=== PATIENT | male | born 1955 | race Caucasian/White ===

== ENCOUNTER 2018-03-13 04:00 | Emergency (ER) | payer OTHER, MEDICARE ==
[2018-03-13 04:06] VITALS: RESP 18
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
--- NOTE | 2018-03-13 05:25 | CT ---
EXAM: CT Head Without Intravenous Contrast CLINICAL HISTORY: ITS.REASON CT Reason: Pain TECHNIQUE: Axial computed tomography images of the head/brain without intravenous contrast. CTDI is 57 mGy and DLP is 1004 mGy-cm. This CT exam was performed using one or more of the following dose reduction techniques: automated exposure control, adjustment of the mA and/or kV according to patient size, and/or use of iterative reconstruction technique. COMPARISON: No relevant prior studies available. FINDINGS: Brain: No hemorrhage, large hypodensity, or mass effect. Left middle cranial fossa arachnoid cyst Ventricles: No hydrocephalus. Mild cerebral volume loss. Bones/joints: Unremarkable. Soft tissues: Unremarkable. Sinuses: Unremarkable. Mastoid air cells: Clear. Moderate cerumen in the left external auditory canal. IMPRESSION: No acute hemorrhage, hydrocephalus, or mass effect. Left middle cranial fossa arachnoid cyst. Moderate cerumen in the left external auditory canal. EXAM: CT Cervical Spine Without Intravenous Contrast CLINICAL HISTORY: ITS.REASON CT Reason: Pain TECHNIQUE: Axial computed tomography images of the cervical spine without intravenous contrast. CTDI is 13 mGy and DLP is 679 mGy-cm. This CT exam was performed using one or more of the following dose reduction techniques: automated exposure control, adjustment of the mA and/or kV according to patient size, and/or use of iterative reconstruction technique. COMPARISON: No relevant prior studies available. FINDINGS: Vertebrae: No acute fracture. Discs/spinal canal/neural foramina: No acute findings. No spinal canal stenosis. Moderate left osseous neuroforaminal stenosis at C3-C4 secondary to severe left facet osteoarthrosis. Soft tissues: Unremarkable. IMPRESSION: No acute fracture or subluxation. Moderate left osseous neuroforaminal stenosis at C3-C4 secondary to severe left facet osteoarthrosis.
--- NOTE | 2018-03-13 05:31 | XR ---
EXAM: XR Thoracic Spine, 3 Views CLINICAL HISTORY: ITS.REASON XR Reason: Pain TECHNIQUE: Frontal, lateral and swimmer's views of the thoracic spine. COMPARISON: No relevant prior studies available. FINDINGS: Vertebrae: Normal alignment of the thoracic spine. Anterior bridging osteophyte formation seen at multiple levels. No acute fracture. Disc spaces: Disc space narrowing and anterior osteophyte formation identified. Soft tissues: Unremarkable. IMPRESSION: No acute bony abnormality. Degenerative changes.
[2018-03-13 06:25] VITALS: BP 138/70; PULSE 77; TEMP 97.9
[2018-03-13] MEDS ORDERED: CARBAMIDE PEROXIDE 6.5% DROPS 15 ML BTL LEFT EAR STA (06:42)
== END 2018-03-13 06:25 | disposition home or self-care (01) ==
LOC: EC 04:00
DX: S80.819A Abrasion, unspecified lower leg, initial encounter (principal); F17.200 Nicotine dependence, unspecified, uncomplicated; V49.40XA Driver injured in collision with unspecified motor vehicles in traffic accident, initial encounter; W22.11XA Striking against or struck by driver side automobile airbag, initial encounter; Y92.410 Unspecified street and highway as the place of occurrence of the external cause
CPT/HCPCS: 70450; 72072; 72125; 99284

== ENCOUNTER → 2018-09-02 | Outpatient (CLI) | payer OTHER ==
--- NOTE | 2018-09-03 09:35 | MM ---
Reason for exam: clinical finding. History: Family history of breast cancer in mother at age 65 and breast cancer in sister at age 66. Indicated problem(s): lump or thickening in the right breast. Physical Findings: Nurse Summary: 0.5 x 0.5cm nodule in the right breast at 12 o'clock (nurse ts). MG Diagnostic Mammo w CAD AKI Bilateral CC and MLO view(s) were taken. There are scattered fibroglandular densities. There is no discrete abnormality. These results were verbally communicated with the patient and result sheet given to the patient on 09/02/18. ASSESSMENT: Incomplete: need additional imaging evaluation, BI-RAD 0 RECOMMENDATION: Ultrasound of the right breast. (palpable)
--- NOTE | 2018-09-03 09:40 | USB ---
Reason for exam: additional evaluation requested from abnormal screening. History: Family history of breast cancer in mother at age 65 and breast cancer in sister at age 66. US Breast RT Right complete breast ultrasound includes all four quadrants, the retroareolar region and axilla. Finding demonstrates a 1.0 x 0.3 x 0.8cm oval, hyperechoic lesion at 1 o'clock BB, possible lipoma. These results were verbally communicated with the patient and result sheet given to the patient on 09/02/18. ASSESSMENT: Benign, BI-RAD 2 RECOMMENDATION: Clinical management of the right breast. Manage patient on a clinical basis.
== END | disposition home or self-care (01) ==
LOC: RADMAMWWP 13:43
DX: N63.12 Unspecified lump in the right breast, upper inner quadrant (principal)
CPT/HCPCS: 77066

== ENCOUNTER → 2018-11-09 | Outpatient (CLI) | payer OTHER ==
--- NOTE | 2018-11-09 16:35 | US ---
EXAMINATION TYPE: US carotid duplex BILAT DATE OF EXAM: 11/09/2018 COMPARISON: NONE CLINICAL HISTORY: I10 HTN. EXAM MEASUREMENTS: RIGHT: Peak Systolic Velocity (PSV) cm/sec ----- Right CCA: 81.1 ----- Right ICA: 74.1 ----- Right ECA: 67.5 ICA/CCA ratio: 0.9 RIGHT: End Diastole cm/sec ----- Right CCA: 29.3 ----- Right ICA: 36.7 ----- Right ECA: 14.6 LEFT: Peak Systolic Velocity (PSV) cm/sec ----- Left CCA: 81.6 ----- Left ICA: 88.6 ----- Left ECA: 83.3 ICA/CCA ratio: 1.1 LEFT: End Diastole cm/sec ----- Left CCA: 21.0 ----- Left ICA: 38.0 ----- Left ECA: 20.5 VERTEBRALS (direction of flow): Right Vertebral: Antegrade Left Vertebral: Antegrade Rhythm: Normal No significant velocity elevations, mild atherosclerotic changes. IMPRESSION: 1. Atheromatous plaquing without significant flow-limiting stenosis. Criteria for Assigning % of Stenosis / Diameter reduction (Estimation based on the indirect measurements of the internal carotid artery velocities (ICA PSV). 1. Normal (no stenosis)=ICA PSV < 125 cm/s: ratio < 2.0: ICA EDV<40 cm/s. 2. Less than 50% stenosis=ICA PSV < 125 cm/s: ratio < 2.0: ICA EDV<40 cm/s. 3. 50 to 69% stenosis=ICA PSV of 125 to 230 cm/s: ration 2.0 ? 4.0: ICA EDV 40-100 cm/s. 4. Greater than 70% stenosis to near occlusion= ICA PSV > 230 cm/s: ratio > 4.0: ICA EDV > 100 cm/s. 5. Near occlusion= ICA PSV velocities may be low or undetectable: variable ratio and ICA EDV. 6. Total occlusion=unable to detect flow.
== END ==
LOC: RADUSWWP 11:59
DX: I70.90 Unspecified atherosclerosis (principal)
CPT/HCPCS: 93880

== ENCOUNTER → 2018-11-18 | Outpatient (CLI) | payer OTHER ==
--- NOTE | 2018-11-18 12:57 | MR ---
EXAMINATION TYPE: MR lumbar spine wo con DATE OF EXAM: 11/18/2018 COMPARISON: NONE HISTORY: low back pain into left leg TECHNIQUE: T1 and T2 axial and sagittal images of the lumbar spine are submitted. FINDINGS: There is no abnormal signal seen within the visualized spinal cord or paraspinal soft tissu es. Aorta of normal caliber. Simple appearing large left renal cyst. Artifact obscures upper axial im ages of the vertebral column near the thoracolumbar junction. At T11-T12 disc sagittal disc bulging which is not included on the axial images. At T12-L1 there is no disc herniation or canal stenosis. No degenerative disc disease. At L1-2 there is no degenerative disc disease or disc herniation. No canal stenosis. Neural foramina patent. At L2-3 there is broad-based central disc herniation with moderate effacement of thecal sac. Hypertro phic change of the facets and ligamentum flavum contribute to moderate central stenosis and mild bila teral foraminal encroachment. At L3-4 there is degenerative disc disease with diffuse disc bulging and hypertrophy of the facet ricky nts and ligamentum flavum. Mild bilateral foraminal encroachment. Borderline central stenosis. Verteb ral body hemangioma L3. At L4-5 there is severe degenerative disc disease with discogenic marrow changes. 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 Findin gs also have evidence of facet arthropathy and ligamentum flavum hypertrophy with moderate central st enosis. Vertebral body hemangioma of L5. At L5-S1 there is severe degenerative disc disease with broad-based central disc bulging. There is mo derate effacement of thecal sac and mild central stenosis. Facet arthropathy is seen and there is mod erate to severe bilateral foraminal encroachment. Vertebral body hemangioma L5. IMPRESSION: 1. Multilevel degenerative disc disease with most marked findings at L4-L5 and L5-S1. 2. Broad-based disc bulging L2-L3 with hypertrophic changes contributing to foraminal encroachment an d moderate canal stenosis. 3. Disc bulging with hypertrophic changes L3-L4 with mild bilateral foraminal encroachment and border line central stenosis. 4. Severe degenerative disc disease with disc protrusion greater paracentrally the right resulting in moderate central stenosis and bilateral foraminal encroachment with severe changes on the right. 5. Disc bulging with hypertrophic changes involving L5-S1 results in moderate to severe bilateral for aminal encroachment and mild central stenosis.
== END | disposition home or self-care (01) ==
LOC: RADMRIMAIN 11:08
DX: M48.061 Spinal stenosis, lumbar region without neurogenic claudication (principal); M51.26 Other intervertebral disc displacement, lumbar region; M51.27 Other intervertebral disc displacement, lumbosacral region; M51.36 Other intervertebral disc degeneration, lumbar region; M51.37 Other intervertebral disc degeneration, lumbosacral region; Z88.0 Allergy status to penicillin
CPT/HCPCS: 72148

== ENCOUNTER 2018-11-22 00:43 | Emergency (ER) | payer OTHER, MEDICARE ==
[2018-11-22] MEDS ORDERED: SODIUM CHLORIDE 0.9% 1,000 ML IV ONE (01:37)
[2018-11-22] MEDS ORDERED: ACETAMINOPHEN TAB 500 MG TAB PO STA (01:37)
[2018-11-22 01:53] LABS: Basophils % (A) 0 %; Eosinophils # (A) 0.1 k/uL (0-0.7); Eosinophils % (A) 2 %; HCT 41.9 % (39.0-53.0); HGB 13.5 gm/dL (13.0-17.5); Lymphocytes # (A) 0.9 k/uL (1.0-4.8); Lymphocytes % (A) 12 %; MCH 27.9 pg (25.0-35.0); MCHC 32.3 g/dL (31.0-37.0); MCV 86.5 fL (80.0-100.0); Mean Platelet Volume 7.1; Monocytes # (A) 0.1 k/uL (0-1.0); Monocytes % (A) 1 %; Neutrophils % (A) 84 %; Platelet Count 219 k/uL (150-450); RBC 4.84 m/uL (4.30-5.90); RDW 14.1 % (11.5-15.5); WBC 7.1 k/uL (3.8-10.6)
[2018-11-22 02:02] LABS: INR 0.9 (<1.2); Partial Thromboplastin Time 25.6 sec (22.0-30.0); Prothrombin Time 10.1 sec (9.0-12.0)
--- NOTE | 2018-11-22 02:07 | XR ---
EXAM: XR Chest, 2 Views CLINICAL HISTORY: ITS.REASON XR Reason: difficulty breathing TECHNIQUE: Frontal and lateral views of the chest. COMPARISON: No relevant prior studies available. FINDINGS: Lungs: No consolidation or mass. Pleural space: No effusion. Heart: No cardiomegaly. Mediastinum: Unremarkable. IMPRESSION: No acute cardiopulmonary process.
[2018-11-22 02:08] LABS: ALT 17 U/L (21-72); AST 26 U/L (17-59); Albumin 3.8 g/dL (3.5-5.0); Alkaline Phosphatase 87 U/L (38-126); Anion Gap 10 mmol/L; Blood Urea Nitrogen 24 mg/dL (9-20); Calcium 9.4 mg/dL (8.4-10.2); Carbon Dioxide 21 mmol/L (22-30); Chloride 110 mmol/L (98-107); Glucose 105 mg/dL (74-99); Potassium 4.2 mmol/L (3.5-5.1); Sodium 141 mmol/L (137-145); Total Bilirubin 0.5 mg/dL (0.2-1.3); Total Protein 6.9 g/dL (6.3-8.2)
[2018-11-22 02:55] VITALS: RESP 18
--- NOTE | 2018-11-22 03:25 | ED ---
General Adult HPI - General Source: EMS Mode of arrival: EMS Limitations: no limitations <Rozina Henry - Last Filed: 11/22/18 03:39> <Lorri Hendrix - Last Filed: 11/24/18 07:57> - General Chief complaint: Shortness of Breath Stated complaint: HUDSON Time Seen by Provider: 11/22/18 01:12 - History of Present Illness Initial comments: 63-year-old male patient presents to the emergency department today for e valuation of fever, chills, shortness of breath. Patient states this evening he started to feel cold. Patient states he applied multiple layers of clothing and was under the covers and he was still shaking. Patient states during this episode he did become short of breath so he became concerned and called ambulance to bring him in. Patient states prior to this he was in his usual state of health and was feeling well. He denies any sore throat or cough but he does report some nasal congestion. Patient denies any abdominal pain, nausea, vomiting, constipation, or diarrhea. Denies any rash or wounds. Patient denies any chronic lung conditions other than asthma as a child. States he did receive a breathing treatment in EMS it did improve his symptoms. Patient denies any recent chest pain, back pain, numbness, tingling, dizziness, weakness, hematuria, dysuria, urinary urgency, urinary frequency, headache, visual changes, or any other complaints. (Rozina Henry) - Related Data Allergies Allergy/AdvReac Type Severity Reaction Status Date / Time No Known Allergies Allergy Verified 03/13/18 04:49 Review of Systems ROS Other: All systems not noted in ROS Statement are negative. <Rozina Henry - Last Filed: 11/22/18 03:39> ROS Other: All systems not noted in ROS Statement are negative. <Lorri Hendrix - Last Filed: 11/24/18 07:57> ROS Statement: Those systems with pertinent positive or pertinent negative responses have been documented in the HPI. Past Medical History Past Medical History: Diabetes Mellitus, Hypertension, Thyroid Disorder History of Any Multi-Drug Resistant Organisms: None Reported Past Surgical History: Orthopedic Surgery Additional Past Surgical History / Comment(s): weight loss surgery. Past Psychological History: No Psychological Hx Reported Smoking Status: Current every day smoker Past Alcohol Use History: None Reported Past Drug Use History: None Reported <Rozina Henry Colten - Last Filed: 11/22/18 03:39> General Exam Limitations: no limitations General appearance: alert, in no apparent distress, other (Physical well- developed, well-nourished adult male patient in no acute distress. Vital signs upon presentation are temperature 101.0F oral, pulse 89, respirations 20, blood pressure 139/78, pulse ox 96% on room air.) Eye exam: Present: normal appearance, PERRL, EOMI. Absent: scleral icterus, conjunctival injection, periorbital swelling ENT exam: Present: normal exam, normal oropharynx, mucous membranes moist Neck exam: Present: normal inspection. Absent: tenderness, meningismus, lymphadenopathy Respiratory exam: Present: normal lung sounds bilaterally. Absent: respiratory distress, wheezes, rales, rhonchi, stridor Cardiovascular Exam: Present: regular rate, normal rhythm, normal heart sounds. Absent: systolic murmur, diastolic murmur, rubs, gallop, clicks GI/Abdominal exam: Present: soft, normal bowel sounds. Absent: distended, tenderness, guarding, rebound, rigid Neurological exam: Present: alert, oriented X3, CN II-XII intact Psychiatric exam: Present: normal affect, normal mood Skin exam: Present: warm, dry, intact, normal color. Absent: rash <Rozina Henry Colten - Last Filed: 11/22/18 03:39> Course Vital Signs 11/22/18 11/22/18 11/22/18 00:46 01:17 01:42 Temperature 98.8 F 101.1 F H Pulse Rate 89 Respiratory 20 20 Rate Blood Pressure 139/78 O2 Sat by Pulse 96 Oximetry 11/22/18 11/22/18 02:54 03:56 Temperature 100.8 F H 101.0 F H Pulse Rate 100 68 Respiratory 18 18 Rate Blood Pressure 111/70 101/52 O2 Sat by Pulse 95 98 Oximetry EKG Findings - EKG Comments: EKG Findings:: EKG obtained at 0054 shows sinus tachycardia with ventricular rate of 102, ID interval 162, QRS duration 86, QT 342, QTc 445. <Rozina Henry Colten - Last Filed: 11/22/18 03:39> Medical Decision Making - Lab Data Result diagrams: 11/22/18 00:53 11/22/18 00:53 - Radiology Data Radiology results: report reviewed, image reviewed <Rozina Henry - Last Filed: 11/22/18 03:39> - Lab Data Result diagrams: 11/22/18 00:53 11/22/18 00:53 <Lorri Hendrix - Last Filed: 11/24/18 07:57> - Medical Decision Making 63-year-old male patient presents to the emergency department today for evaluation of fever and shortness of breath. Physical examination was relatively unremarkable. Lungs are clear to auscultation with good air movement. At time of evaluation patient was resting comfortably exhibiting exhibiting no respiratory distress. Labs reviewed and were unremarkable. Patient is normal white blood cell, and troponin negative. EKG showed sinus tachycardia with no ST elevation or depression. Chest x-ray showed no acute cardiopulmonary process. At time of reevaluation patient reports improve symptoms. Vital signs are stable. We did discuss virus as a cause for his symptoms. He was instructed to follow-up with his primary care physician for recheck tomorrow. Return parameters were discussed in detail. He verbalizes understanding and agrees with this plan. (Rozina Henry) I was available for consultation in the emergency department. The history and physical exam were done by the midlevel provider. I was consulted for this patient's care. I reviewed the case with the midlevel provider and based on their presentation of the patient, I agree with the assessment, medical decision making and plan of care as documented. Chart was dictated using Flinto dictation software. Attempts were made to correct any dictation errors however some typographical errors may persist. (Lorri Hendrix) - Lab Data Lab Results 11/22/18 11/22/18 11/22/18 Range/Units 00:53 00:53 00:53 WBC 7.1 (3.8-10.6) k/uL RBC 4.84 (4.30-5.90) m/uL Hgb 13.5 (13.0-17.5) gm/dL Hct 41.9 (39.0-53.0) % MCV 86.5 (80.0-100.0) fL MCH 27.9 (25.0-35.0) pg MCHC 32.3 (31.0-37.0) g/dL RDW 14.1 (11.5-15.5) % Plt Count 219 (150-450) k/uL Neutrophils % 84 % Lymphocytes % 12 % Monocytes % 1 % Eosinophils % 2 % Basophils % 0 % Neutrophils # 6.0 (1.3-7.7) k/uL Lymphocytes # 0.9 L (1.0-4.8) k/uL Monocytes # 0.1 (0-1.0) k/uL Eosinophils # 0.1 (0-0.7) k/uL Basophils # 0.0 (0-0.2) k/uL PT 10.1 (9.0-12.0) sec INR 0.9 (<1.2) APTT 25.6 (22.0-30.0) sec Sodium 141 (137-145) mmol/L Potassium 4.2 (3.5-5.1) mmol/L Chloride 110 H (98-107) mmol/L Carbon Dioxide 21 L (22-30) mmol/L Anion Gap 10 mmol/L BUN 24 H (9-20) mg/dL Creatinine 1.01 (0.66-1.25) mg/dL Est GFR (CKD-EPI)AfAm >90 (>60 ml/min/1.73 sqM) Est GFR (CKD-EPI)NonAf 80 (>60 ml/min/1.73 sqM) Glucose 105 H (74-99) mg/dL Plasma Lactic Acid Brendan (0.7-2.0) mmol/L Calcium 9.4 (8.4-10.2) mg/dL Total Bilirubin 0.5 (0.2-1.3) mg/dL AST 26 (17-59) U/L ALT 17 L (21-72) U/L Alkaline Phosphatase 87 (38-126) U/L Troponin I (0.000-0.034) ng/mL Total Protein 6.9 (6.3-8.2) g/dL Albumin 3.8 (3.5-5.0) g/dL 11/22/18 11/22/18 Range/Units 00:53 00:53 WBC (3.8-10.6) k/uL RBC (4.30-5.90) m/uL Hgb (13.0-17.5) gm/dL Hct (39.0-53.0) % MCV (80.0-100.0) fL MCH (25.0-35.0) pg MCHC (31.0-37.0) g/dL RDW (11.5-15.5) % Plt Count (150-450) k/uL Neutrophils % % Lymphocytes % % Monocytes % % Eosinophils % % Basophils % % Neutrophils # (1.3-7.7) k/uL Lymphocytes # (1.0-4.8) k/uL Monocytes # (0-1.0) k/uL Eosinophils # (0-0.7) k/uL Basophils # (0-0.2) k/uL PT (9.0-12.0) sec INR (<1.2) APTT (22.0-30.0) sec Sodium (137-145) mmol/L Potassium (3.5-5.1) mmol/L Chloride (98-107) mmol/L Carbon Dioxide (22-30) mmol/L Anion Gap mmol/L BUN (9-20) mg/dL Creatinine (0.66-1.25) mg/dL Est GFR (CKD-EPI)AfAm (>60 ml/min/1.73 sqM) Est GFR (CKD-EPI)NonAf (>60 ml/min/1.73 sqM) Glucose (74-99) mg/dL Plasma Lactic Acid Brendan 1.5 (0.7-2.0) mmol/L Calcium (8.4-10.2) mg/dL Total Bilirubin (0.2-1.3) mg/dL AST (17-59) U/L ALT (21-72) U/L Alkaline Phosphatase (38-126) U/L Troponin I <0.012 (0.000-0.034) ng/mL Total Protein (6.3-8.2) g/dL Albumin (3.5-5.0) g/dL - Radiology Data Two-view x-ray of the chest is obtained. Report was reviewed in its entirety. Impression by Dr. Tam shows no acute cardiopulmonary process. (Rozina Henry) Disposition Is patient prescribed a controlled substance at d/c from ED?: No Time of Disposition: 03:26 <Rozina Henry - Last Filed: 11/22/18 03:39> <Lorri Hendrix - Last Filed: 11/24/18 07:57> Clinical Impression: Fever, Viral syndrome Disposition: HOME SELF-CARE Condition: Good Instructions (If sedation given, give patient instructions): Fever in Adults (ED), Viral Syndrome (ED) Additional Instructions: Increase fluids. Alternate Tylenol and Motrin for fever control. Return to the emergency department immediately for any new, worsening, or concerning symptoms. Referrals: [facility],Clinic [Primary Care Provider] - 1-2 days
[2018-11-22 03:56] VITALS: BP 101/52; PULSE 68; TEMP 101
== END 2018-11-22 03:59 | disposition home or self-care (01) ==
LOC: EC 00:43
DX: B34.9 Viral infection, unspecified (principal); F17.200 Nicotine dependence, unspecified, uncomplicated
CPT/HCPCS: 36415; 71046; 80053; 83605; 84484; 85025; 85610; 85730; 87040; 93005; 96360; 99285

== ENCOUNTER → 2019-08-25 | Day surgery (SDC) | payer OTHER ==
[2019-08-24 10:40] VITALS: BMI 37.9
[~2019-08-25] MED LIST: LACTATED RINGERS 1,000 ML IV SCH; LIDOCAINE 1% 20 ML VIAL (10MG/ML) FOR IV START INTRADERMA PRN; LIDOCAINE 1% INJ 10MG/ML (20 ML MDV) ONE; PROPOFOL 10 MG/ML 20 ML VIAL IV ONE
[2019-08-25 07:58] VITALS: TEMP 97
[2019-08-25 07:59] LABS: Glucose,Whole Blood 111 mg/dL (75-99)
--- NOTE | 2019-08-25 08:45 | P.PCN ---
Date of Procedure: 08/25/19 Description of Procedure: BRIEF HISTORY: Patient is a 63-year-old male who presents for outpatient colonoscopy screening for malignant neoplasm colon. Patient reports multiple colonoscopies in the past with the last colonoscopy in 2019 which was not completed secondary to poor prep. He has had polyps removed in the past per his history. PROCEDURE PERFORMED: Colonoscopy with poor prep. PREOPERATIVE DIAGNOSIS: Screening for malignant neoplasm of the colon, last colonoscopy 1 year ago aborted secondary to poor prep, patient reports a history of colon polyps in the past. ESTIMATED BLOOD LOSS: Minimal. IV sedation per Anesthesia. PROCEDURE: After informed consent was obtained, the patient, was brought into the endoscopy unit. IV sedation was administered by Anesthesia under continuous monitoring. Digital rectal examination was normal. Initially the Olympus CF-190 flexible video colonoscope was then inserted in the rectum, gradually advanced into the cecum without any difficulty. Careful examination was performed as the scope was gradually being withdrawn. Ileocecal valve and the appendiceal orifice were visualized and appeared normal. Prep was poor with a large amount of liquid stool and solid stool throughout the entire colon prohibiting complete visu alization of the mucosa . Mucosa of the cecum, ascending colon, transverse colon, descending colon, sigmoid colon, and rectum which was able to be visualized appeared normal. Retroflexion was performed in the rectum and no lesions were seen. The patient tolerated the procedure well. IMPRESSION: Normal-appearing colon from rectum to cecum, however complete visualization impeded by poor prep. RECOMMENDATIONS: Findings of this examination were discussed with the patient and his nephew. Okay to resume diet. Okay to resume medication. Would recommend repeat colonoscopy in one year due to poor prep.
[2019-08-25 08:59] VITALS: BP 122/81; PULSE 68; RESP 18
== END ==
LOC: ORWHC2ENDO 07:15
PROVIDERS: ATTEND Internal Medicine
DX: Z12.11 Encounter for screening for malignant neoplasm of colon (principal); Z86.010 Personal history of colon polyps; E11.9 Type 2 diabetes mellitus without complications; E07.9 Disorder of thyroid, unspecified; K21.9 Gastro-esophageal reflux disease without esophagitis; Z72.0 Tobacco use; Z79.84 Long term (current) use of oral hypoglycemic drugs; Z79.890 Hormone replacement therapy; Z79.899 Other long term (current) drug therapy; Z98.84 Bariatric surgery status; Z90.49 Acquired absence of other specified parts of digestive tract; Z96.653 Presence of artificial knee joint, bilateral
CPT/HCPCS: J2001; J2704; G0105; 45378

== ENCOUNTER → 2020-06-21 | Outpatient (CLI) | payer MEDICARE, OTHER ==
--- NOTE | 2020-06-22 03:10 | MR ---
EXAMINATION TYPE: MR lumbar spine wo con DATE OF EXAM: 06/21/2020 COMPARISON: 11/18/2018 HISTORY: Low back and leg pain. HNP and lumbar radiculopathy. Multiplanar multiecho imaging of the lumbar spine was performed without contrast. Lumbar vertebra have normal alignment. There is narrowing of disc spaces at L4-5 and L5-S1. There is posterior disc bulging and herniation from L2 to S1. There is developmentally adequate spinal canal. Disc herniation at L4-5 is more to the right side with some lateral recess stenosis. The lumbar neura l foramina are fairly well-maintained. There is no compression fracture. There is no lumbar paraspina l mass. Number nerve roots show normal signal pattern. Sacrum is intact. Visualized sacroiliac joints appear intact. IMPRESSION: Multilevel spondylotic changes with multilevel posterior disc bulging and herniation. No significant spinal stenosis. Disc herniation on the right side at L4-5 no fracture. There is overall not a signif icant change compared to old exam.
== END | disposition home or self-care (01) ==
LOC: RADMRIMAIN 14:59
PROVIDERS: ATTEND Neurological Surgery
DX: M47.26 Other spondylosis with radiculopathy, lumbar region (principal); M51.16 Intervertebral disc disorders with radiculopathy, lumbar region
CPT/HCPCS: 72148

== ENCOUNTER 2021-07-10 13:17 | Inpatient (IN) | payer OTHER ==
--- NOTE | 2021-07-10 15:28 | XR ---
EXAMINATION TYPE: XR chest 2V DATE OF EXAM: 07/10/2021 COMPARISON: Chest x-ray 11/22/2018 HISTORY: Shortness of breath, fever and cough TECHNIQUE: Frontal and lateral views of the chest are obtained. FINDINGS: There is pleural effusion or pneumothorax seen. Some questionable patchy peripheral vague densities are present within the lungs. The cardiac silhouette size is within normal limits. Right h emidiaphragm remains elevated. The osseous structures are intact. IMPRESSION: Correlate for possible pneumonia, follow-up as indicated.
[2021-07-10] MEDS ORDERED: ALBUTEROL HFA INHALER INHALATION STA (16:29)
[2021-07-10] MEDS ORDERED: ACETAMINOPHEN TAB 500 MG TAB PO STA (16:29)
[2021-07-10] MEDS ORDERED: ONDANSETRON 4 MG/2 ML VIAL IVP STA (16:32)
[2021-07-10] MEDS ORDERED: SODIUM CHLORIDE 0.9% 1,000 ML IV STA (16:32)
--- NOTE | 2021-07-10 17:03 | ED ---
General Adult HPI - General Chief complaint: Fever Stated complaint: Fever, Chills Time Seen by Provider: 07/10/21 16:11 Source: patient Mode of arrival: wheelchair Limitations: no limitations - History of Present Illness Initial comments: This 65-year-old male presents to the emergency department with Covid 19. Patient states he has been experiencing shortness of breath, cough, nausea, fever since June 30, however, the symptoms have been worsening more the last couple of days. States he is able to get up and walk, but feels very winded and begins coughing if he walks short distances. He states he is also experiencing worsening fatigue and body aches. Patient denies being on any oxygen at home. Patient states he was not vaccinated for COVID-19. Patient denies any chest pain, changes in vision, lightheadedness, dizziness, changes in appetite. - Related Data Home Medications Medication Instructions Recorded Confirmed Ferrous Sulfate [Feosol] 325 mg PO DAILY 08/24/19 07/10/21 Levothyroxine Sodium [Synthroid] 100 mcg PO DAILY 08/24/19 07/10/21 Loratadine 10 mg PO DAILY 08/24/19 07/10/21 Omeprazole 20 mg PO DAILY 08/24/19 07/10/21 metFORMIN HCL [Glucophage] 500 mg PO DAILY 08/24/19 07/10/21 Lisinopril [Zestril] 10 mg PO DAILY 08/25/19 07/10/21 Azithromycin [Zithromax Z-pack (6 See Taper PO DAILY 07/10/21 07/10/21 tabs)] Cholecalciferol [Vitamin D3 (25 25 mcg PO DAILY 07/10/21 07/10/21 Mcg = 1000 Iu)] DULoxetine HCL [Cymbalta] 20 mg PO HS 07/10/21 07/10/21 Dm/Acetaminophen/Doxylamine [Vicks 2 cap PO Q6H PRN 07/10/21 07/10/21 Nyquil Liquicaps] Fluticasone Nasal [place] [Flonase 1 spr EA NOSTRIL DAILY 07/10/21 07/10/21 Nasal [place]] Gabapentin 800 mg PO TID 07/10/21 07/10/21 Multivitamins, Thera [Multivitamin 1 tab PO BID 07/10/21 07/10/21 (formulary)] Tadalafil [Cialis] 5 mg PO DAILY PRN 07/10/21 07/10/21 buPROPion [Wellbutrin] 150 mg PO DAILY 07/10/21 07/10/21 guaiFENesin [Mucinex] 600 mg PO BID 07/10/21 07/10/21 Allergies Allergy/AdvReac Type Severity Reaction Status Date / Time No Known Allergies Allergy Verified 07/10/21 16:49 Review of Systems ROS Statement: Those systems with pertinent positive or pertinent negative responses have been documented in the HPI. ROS Other: All systems not noted in ROS Statement are negative. Past Medical History Past Medical History: Diabetes Mellitus, GERD/Reflux, Hypertension, Thyroid Disorder Additional Past Medical History / Comment(s): DIVERTICULOSIS History of Any Multi-Drug Resistant Organisms: None Reported Past Surgical History: Appendectomy, Bariatric Surgery, Joint Replacement Additional Past Surgical History / Comment(s): GATRIC SLEEVE. BILAT TKA. COLONOSCOPY. EYELID SX. RHINOPLASTY Past Anesthesia/Blood Transfusion Reactions: Motion Sickness Past Psychological History: No Psychological Hx Reported Smoking Status: Former smoker Past Alcohol Use History: Rare Past Drug Use History: None Reported - Past Family History Mother Family Medical History: No Reported History Sister(s) Family Medical History: Cancer Father Family Medical History: Cancer General Exam Limitations: no limitations General appearance: alert, in no apparent distress, obese Head exam: Present: atraumatic, normocephalic Eye exam: Present: normal appearance, EOMI ENT exam: Present: mucous membranes moist Respiratory exam: Present: normal lung sounds bilaterally, respiratory distress (Respirations at 22 with oxygen at 88%. Nasal cannula placed, 3 L O2 delivered. Patient stated his shortness of breath felt better), other (Coughing while trying to take deep breaths. On 3 L nasal cannula). Absent: wheezes, rales, rhonchi, stridor Cardiovascular Exam: Present: normal rhythm, tachycardia, normal heart sounds. Absent: systolic murmur, diastolic murmur, rubs, gallop, clicks GI/Abdominal exam: Present: soft, normal bowel sounds. Absent: distended, tenderness, guarding, rebound, rigid Extremities exam: Present: full ROM Neurological exam: Present: alert, oriented X3, CN II-XII intact Psychiatric exam: Present: normal affect, normal mood Skin exam: Present: warm, dry, intact, normal color. Absent: rash Course Vital Signs 07/10/21 07/10/21 07/10/21 14:25 16:18 16:20 Temperature 100.6 F H 102.2 F H Pulse Rate 105 H 100 Respiratory 18 22 20 Rate Blood Pressure 117/72 125/84 O2 Sat by Pulse 90 L 88 L Oximetry 07/10/21 20:45 Temperature 98.6 F Pulse Rate 75 Respiratory 18 Rate Blood Pressure 106/67 O2 Sat by Pulse 94 L Oximetry EKG Findings - EKG Comments: EKG Findings:: EKG at 17:39. Normal sinus rhythm. Ventricular rate 87 bpm. MD interval 152ms. QRS duration 90ms. QT/QTc is 358/430ms Medical Decision Making - Medical Decision Making This 65-year-old male presents to emergency department with COVID-19. Patient has been experiencing shortness of breath, cough, fatigue, nausea since 06/30/2021. Placed on 3 L nasal cannula and states shortness of breath has improved but he still feels "like crap." Chest x-ray impression: Correlate for possible pneumonia, follow-up is indicated. Some questionable patchy peripheral vague densities are present within the lungs. Labs: D-dimer 1.27. BNP 134, creatinine 1.53, lactate dehydrogenase 1378, C-reactive protein 7.6, platelet 136. CTA chest no evidence of pulmonary embolism. Extensive ground glass interstitial and filtrates consistent with multifocal interstitial pneumonia. Started patient on anticoagulant. Discussed case with Dr. Barfield. Patient will be admitted to Dr. Archuleta with pulmonary consulted. - Lab Data Result diagrams: 07/10/21 17:03 07/10/21 17:03 Lab Results 07/10/21 07/10/21 07/10/21 Range/Units 14:34 17:03 17:03 WBC 6.8 (3.8-10.6) k/uL RBC 5.57 (4.30-5.90) m/uL Hgb 16.5 (13.0-17.5) gm/dL Hct 48.1 (39.0-53.0) % MCV 86.4 (80.0-100.0) fL MCH 29.5 (25.0-35.0) pg MCHC 34.2 (31.0-37.0) g/dL RDW 12.5 (11.5-15.5) % Plt Count 136 L (150-450) k/uL MPV 8.2 Neutrophils % 88 % Lymphocytes % 7 % Monocytes % 3 % Eosinophils % 0 % Basophils % 0 % Neutrophils # 6.0 (1.3-7.7) k/uL Lymphocytes # 0.5 L (1.0-4.8) k/uL Monocytes # 0.2 (0-1.0) k/uL Eosinophils # 0.0 (0-0.7) k/uL Basophils # 0.0 (0-0.2) k/uL PT 10.3 (9.0-12.0) sec INR 1.0 (<1.2) APTT 26.2 (22.0-30.0) sec D-Dimer 1.27 H (<0.60) mg/L FEU Sodium (137-145) mmol/L Potassium (3.5-5.1) mmol/L Chloride (98-107) mmol/L Carbon Dioxide (22-30) mmol/L Anion Gap mmol/L BUN (9-20) mg/dL Creatinine (0.66-1.25) mg/dL Est GFR (CKD-EPI)AfAm (>60 ml/min/1.73 sqM) Est GFR (CKD-EPI)NonAf (>60 ml/min/1.73 sqM) Glucose (74-99) mg/dL Plasma Lactic Acid Brendan (0.7-2.0) mmol/L Calcium (8.4-10.2) mg/dL Magnesium (1.6-2.3) mg/dL Total Bilirubin (0.2-1.3) mg/dL AST (17-59) U/L ALT (4-49) U/L Alkaline Phosphatase (38-126) U/L Lactate Dehydrogenase (313-618) U/L C-Reactive Protein (<1.0) mg/dL Total Protein (6.3-8.2) g/dL Albumin (3.5-5.0) g/dL Coronavirus (PCR) Detected A (Not Detectd) Influenza Type A RNA (Not Detectd) Influenza Type B (PCR) (Not Detectd) 07/10/21 07/10/21 07/10/21 Range/Units 17:03 17:03 17:12 WBC (3.8-10.6) k/uL RBC (4.30-5.90) m/uL Hgb (13.0-17.5) gm/dL Hct (39.0-53.0) % MCV (80.0-100.0) fL MCH (25.0-35.0) pg MCHC (31.0-37.0) g/dL RDW (11.5-15.5) % Plt Count (150-450) k/uL MPV Neutrophils % % Lymphocytes % % Monocytes % % Eosinophils % % Basophils % % Neutrophils # (1.3-7.7) k/uL Lymphocytes # (1.0-4.8) k/uL Monocytes # (0-1.0) k/uL Eosinophils # (0-0.7) k/uL Basophils # (0-0.2) k/uL PT (9.0-12.0) sec INR (<1.2) APTT (22.0-30.0) sec D-Dimer (<0.60) mg/L FEU Sodium 135 L (137-145) mmol/L Potassium 4.9 (3.5-5.1) mmol/L Chloride 101 (98-107) mmol/L Carbon Dioxide 22 (22-30) mmol/L Anion Gap 12 mmol/L BUN 34 H (9-20) mg/dL Creatinine 1.53 H (0.66-1.25) mg/dL Est GFR (CKD-EPI)AfAm 55 (>60 ml/min/1.73 sqM) Est GFR (CKD-EPI)NonAf 48 (>60 ml/min/1.73 sqM) Glucose 121 H (74-99) mg/dL Plasma Lactic Acid Brendan 1.3 (0.7-2.0) mmol/L Calcium 9.3 (8.4-10.2) mg/dL Magnesium 1.9 (1.6-2.3) mg/dL Total Bilirubin 0.7 (0.2-1.3) mg/dL AST 58 (17-59) U/L ALT 20 (4-49) U/L Alkaline Phosphatase 84 (38-126) U/L Lactate Dehydrogenase 1378 H (313-618) U/L C-Reactive Protein 7.6 H (<1.0) mg/dL Total Protein 7.4 (6.3-8.2) g/dL Albumin 3.9 (3.5-5.0) g/dL Coronavirus (PCR) (Not Detectd) Influenza Type A RNA Not Detected (Not Detectd) Influenza Type B (PCR) Not Detected (Not Detectd) Disposition Clinical Impression: COVID-19, Pneumonia due to COVID-19 virus, Hypoxia, Fever Disposition: ADMITTED IP TO THIS HOSP Condition: Good Is patient prescribed a controlled substance at d/c from ED?: No
[2021-07-10 17:17] LABS: Basophils % (A) 0 %; Eosinophils % (A) 0 %; HCT 48.1 % (39.0-53.0); HGB 16.5 gm/dL (13.0-17.5); Lymphocytes # (A) 0.5 k/uL (1.0-4.8); Lymphocytes % (A) 7 %; MCH 29.5 pg (25.0-35.0); MCHC 34.2 g/dL (31.0-37.0); MCV 86.4 fL (80.0-100.0); Mean Platelet Volume 8.2; Monocytes # (A) 0.2 k/uL (0-1.0); Monocytes % (A) 3 %; Neutrophils % (A) 88 %; Platelet Count 136 k/uL (150-450); RBC 5.57 m/uL (4.30-5.90); RDW 12.5 % (11.5-15.5); WBC 6.8 k/uL (3.8-10.6)
[2021-07-10 17:32] LABS: Partial Thromboplastin Time 26.2 sec (22.0-30.0); Prothrombin Time 10.3 sec (9.0-12.0)
[2021-07-10] MEDS ORDERED: DEXAMETHASONE SOD PHOSPHATE 10 MG/ML 1 ML VIAL IVP STA (17:48)
[2021-07-10 17:50] LABS: Albumin 3.9 g/dL (3.5-5.0); C Reactive Protein 7.6 mg/dL (<1.0); Calcium 9.3 mg/dL (8.4-10.2); Magnesium 1.9 mg/dL (1.6-2.3); Potassium 4.9 mmol/L (3.5-5.1); Total Bilirubin 0.7 mg/dL (0.2-1.3); Total Protein 7.4 g/dL (6.3-8.2)
[2021-07-10] MEDS ORDERED: SODIUM CHLORIDE 0.9% 500 ML 500 ML IV STA (18:32)
--- NOTE | 2021-07-10 18:56 | CT ---
EXAMINATION TYPE: CT chest angio for PE DATE OF EXAM: 07/10/2021 COMPARISON: None HISTORY: +covid, SOB CT DLP: 940.9 mGycm Automated exposure control for dose reduction was used. CONTRAST: Performed with IV Contrast, patient injected with 80cc mL of Isovue 370. Images obtained from the thoracic inlet to the diaphragm with IV contrast. There are Three-D postproc essed images. There is patchy groundglass interstitial infiltrates scattered throughout both lung gil. There is no mediastinal adenopathy. There are bilateral multiple bronchial lymph nodes up to 1.5 cm. Thoracic aorta is intact. There is no aneurysm or dissection. There is normal contrast opacification of the pu lmonary arteries. There is no evidence of filling defect. There is no pleural effusion. Thoracic spine is intact. Sternum is intact. Upper abdominal soft tissu es are intact. There is previous gastric bariatric surgery. IMPRESSION: No evidence of pulmonary embolism. Extensive groundglass interstitial infiltrates consistent with mul tifocal interstitial pneumonia.
[2021-07-10] MEDS ORDERED: NALOXONE 0.4 MG/ML 1 ML VIAL IV PRN (19:55)
[2021-07-10] MEDS ORDERED: ACETAMINOPHEN TAB 325 MG TAB PO PRN (19:55)
[2021-07-10] MEDS: ZINC SULFATE 220 MG CAP PO SCH (20:53)
[2021-07-10] MEDS: ASCORBIC ACID 500 MG TAB PO SCH (20:53)
[2021-07-10] MEDS: SODIUM CHLORIDE 0.9% 1,000 ML IV SCH (20:55)
[2021-07-10] MEDS ORDERED: MORPHINE SULFATE 4 MG/ML SYRINGE IVP STA (21:03)
[2021-07-10] MEDS: MULTIVITAMINS, THERA 1 EACH TAB PO SCH (21:11)
[2021-07-10] MEDS: CHOLECALCIFEROL 25 MCG (1000 IU) TABLET PO SCH (21:11)
[2021-07-10] MEDS: ONDANSETRON 4 MG/2 ML VIAL IVP PRN (21:11)
[2021-07-10] MEDS: ENOXAPARIN 40 MG/0.4 ML SYRINGE SQ SCH (21:12)
[2021-07-10] MEDS: DULoxetine HCL 20 MG CAPSULE.DR PO SCH (21:19)
[2021-07-10 21:22] LABS: Appearance,Urine Clear (Clear); Bilirubin,Urine Negative (Negative); Blood,Urine Negative (Negative); Color,Urine Yellow; Glucose,Urine (UA) Negative (Negative); Ketones,Urine Negative (Negative); Leukocyte Esterase,Urine Negative (Negative); Mucus,Urine Rare /hpf; Nitrite,Urine Negative (Negative); PH, Urine 5.5 (5.0-8.0); Protein,Urine 1+ (Negative); RBC,Urine <1 /hpf (0-5); Specific Gravity,Urine 1.041 (1.001-1.035); Squamous Epithelial Cell,Urine <1 /hpf (0-4); WBC,Urine 7 /hpf (0-5)
[2021-07-11] MEDS: GABAPENTIN 400 MG CAP PO SCH ×4 (00:43→19:57)
[2021-07-11] MEDS: LEVOTHYROXINE 100 MCG TAB PO SCH (05:55)
[2021-07-11 07:21] LABS: Glucose,Whole Blood 256 mg/dL (75-99)
[2021-07-11] MEDS: ZINC SULFATE 220 MG CAP PO SCH (07:53)
[2021-07-11] MEDS: lisinopriL 10 MG TAB PO SCH (07:54)
[2021-07-11] MEDS: MULTIVITAMINS, THERA 1 EACH TAB PO SCH ×2 (07:54→19:57)
[2021-07-11] MEDS: PANTOPRAZOLE 40 MG TABLET PO SCH (07:54)
[2021-07-11] MEDS: LORATADINE 10 MG TAB PO SCH (07:54)
[2021-07-11] MEDS: ASCORBIC ACID 500 MG TAB PO SCH (07:54)
[2021-07-11] MEDS: metFORMIN 500 MG TAB PO SCH (07:54)
[2021-07-11] MEDS: CHOLECALCIFEROL 25 MCG (1000 IU) TABLET PO SCH (07:54)
[2021-07-11] MEDS: SODIUM CHLORIDE 0.9% 1,000 ML IV SCH ×2 (08:32→22:52)
[2021-07-11] MEDS: buPROPion 75 MG TAB PO SCH (08:33)
[2021-07-11] MEDS ORDERED: DEXAMETHASONE SOD PHOSPHATE 10 MG/ML 1 ML VIAL IVP SCH (09:00)
[2021-07-11 11:51] LABS: African American GFR (CKD) 82.4 (60.0-200.0); Anion Gap 12.6 mmol/L (10.00-18.00); BUN/Creat Ratio 22.64 Ratio (12.00-20.00); Blood Urea Nitrogen 24.9 mg/dL (9.0-27.0); Calcium 9.1 mg/dL (8.7-10.3); Carbon Dioxide 20.4 mmol/L (20.0-27.5); Non-African American GFR(CKD) 71.1 (60.0-200.0); Potassium 4.2 mmol/L (3.5-5.5)
[2021-07-11 12:06] LABS: Glucose,Whole Blood 188 mg/dL (75-99)
[2021-07-11] MEDS: INSULIN ASPART (NovoLOG) 100 UNIT/ML VIAL SQ SCH ×3 (12:17→19:57)
--- NOTE | 2021-07-11 14:03 | HP ---
HISTORY AND PHYSICAL CHIEF COMPLAINT: Fever, chills, shortness of breath and cough. HISTORY OF PRESENT ILLNESS: This 65-year-old gentleman with a past medical history of multiple medical problems including diabetes, GERD, hypertension, hypothyroidism, being followed by Dr. Resendiz in the [facility] in the outpatient setting complaining of fever. Patient also has shortness of breath with cough and sputum since June 30. Because of worsening symptoms, the patient came to [facility] and was admitted for further evaluation and treatment. Covid 19 was positive. The patient did not receive any vaccination for Covid 19. The chest x-ray showed extensive bilateral pulmonary features suggestive of Covid 19 pneumonia. The patient had hypoxia. There is no history any headache, loss of consciousness or seizures at this time. The blood sugars are also elevated. Patient also had elevated . Procalcitonin is also elevated. PAST MEDICAL HISTORY: History of diabetes type 2, history of GERD, hypertension, hypothyroidism, diverticulosis, appendectomy, bariatric surgery. MEDICATIONS: At home prior to admission include: Zithromax, multivitamins, levothyroxine, iron sulfate, cholecalciferol, Mucinex, omeprazole, Wellbutrin, gabapentin, Cymbalta, Glucophage. Doses and other medications noted. ALLERGIES: None. FAMILY HISTORY: No history of heart disease or strokes in the family. SOCIAL HISTORY: Previous history of smoking. History of vaping. REVIEW OF SYMPTOMS: HEENT: No diminished vision. No diminished hearing. CARDIOVASCULAR system: As mention earlier. RESPIRATIONS: As mentioned earlier. GI: No nausea or vomiting. : No dysuria. NERVOUS SYSTEM: No numbness or weakness. ALLERGY/IMMUNOLOGY: No asthma or hayfever. MUSCULOSKELETAL: As mentioned earlier. HEMATOLOGY/ONCOLOGY: No history of anemia. ENDOCRINE: As mentioned earlier. CONSTITUTIONAL: As mentioned earlier. DERMATOLOGY: Negative. RHEUMATOLOGY: Negative. PSYCHIATRIC: As mentioned earlier. PHYSICAL EXAMINATION: Patient is alert and oriented times three. Pulse is 50, blood pressure is 128/70, respiration 18, temperature 97.4. Pulse ox 98% on 3 L. HEENT: Conjunctivae normal. NECK: No JVD. CARDIOVASCULAR: S1, S2 muffled. RESPIRATORY: Breath sounds diminished in the bases. A few scattered rhonchi and crackles. ABDOMEN: Soft, nontender. No mass palpable. LEGS: No edema. No swelling. NERVOUS SYSTEM: Higher functions as mentioned earlier. Moves all four extremities. No focal deficits. LYMPHATICS: No lymph nodes palpable in the neck, axillae or groin. SKIN: No ulcer, no rashes and no bleeding. JOINTS: No active deforming arthropathy. LABS: WBC 6.8, and platelets are 136. D-dimer is 1.2. Sodium 130. Other labs noted. ASSESSMENT: 1. Acute Covid 19 infection with acute Covid 19 bilateral interstitial pneumonia with acute hypoxic respiratory failure. 2. Thrombocytopenia. 3. Lymphopenia. 4. Elevated D-dimer without any evidence of pulmonary embolism. 5. Hyponatremia. 6. Increased creatinine with acute renal failure, acute tubular necrosis secondary to Covid 19 or dehydration. 7. Elevated plasma glucose. 8. Elevated ferritin. 9. Elevated C-reactive protein and elevated inflammatory markers of Covid 19. 10.Elevated Procalcitonin. 11.History of diabetes type 2. 12.Hypertension. 13.Hypothyroidism. 14.History of diverticulosis. 15.History of bariatric surgery. 16.History of degenerative joint disease. 17.History of vaping, and history of smoking. 18.Obesity with body mass of 37. 19.FULL CODE. RECOMMENDATIONS AND DISCUSSION: This 65-year-old woman who presented with multiple complex medical issues, we will monitor the patient closely, continue the current medications, symptomatic treatment. The patient started on dexamethasone and Lovenox. Otherwise, I would recommend usual medications for Covid 19. Pulmonary consultation. Infectious disease evaluation. Continue the rest of medications. Prognosis guarded because of multiple complex medical issues. Further recommendations to follow. Discussed with the patient who understands and agrees. A copy of this dictation being forwarded to Dr. Resendiz who is the primary physician. MMODL / VAISHNAVIN: [id number] / MTDDarin
--- NOTE | 2021-07-11 16:27 | P.CNPUL ---
History of Present Illness Consult date: 07/11/21 Requesting physician: Dudley Danielson Reason for consult: dyspnea, cough, hypoxemia, pneumonia, abnormal CXR/CT Chief complaint: Fever, chills, cough, shortness of breath, nausea. History of present illness: Pulmonary consult dated 07/11/2021. 65-year-old male, who presented to the emergency department, on July 10, and plenty of a number things including fever, chills, shortness of breath, cough, nausea, and general weakness, since June 30. The patient becomes very winded with any exercise or exertion, and notices that he starts to cough. The cough is mostly dry and harsh, and very painful. The patient is on vaccinated against coronavirus. His roommate, is also in the hospital currently, with coronavirus infection. The patient tested positive for coronavirus on July 10. The patient has a history of diabetes mellitus, diverticular disease, gastroesophageal reflux disease, hypertension, and hypothyroidism. The patient has also had previous bariatric surgery for obesity. The patient is a former smoker. Laboratory data includes a white count 6.8, hemoglobin 16.5, hematocrit 48.1, and a platelet count as 136,000. D-dimer was 1.27. Sodium 137, potassium 4.2, chlorides 104, CO2 20, anion gap 13, BUN 25, and creatinine 1.1. Glucose is 208. Pro-calcitonin level was 0.26. C-reactive protein 7.6. LDH 1378. Urine is negative. Chest x-ray shows diffuse patchy infiltrates, and computed tomography scan though negative for pulmonary embolism, showed significant jessica ateral groundglass opacities consistent with coronavirus pneumonia. Review of Systems REVIEW OF SYSTEMS: CONSTITUTIONAL: Weakness, fever, chills, fatigue. NEUROLOGIC: [ Negative.] HEENT: [ Negative.] CARDIAC: [Negative.] PULMONARY: Shortness of breath, and cough. GI: Poor oral intake. : [Negative.] RHEUMATOLOGIC: [ Negative.] IMMUNOLOGIC: [ Negative.] ENDOCRINE: [Negative. ] DERMATOLOGIC: [Negative.] Past Medical History Past Medical History: Diabetes Mellitus, GERD/Reflux, Hypertension, Thyroid Disorder Additional Past Medical History / Comment(s): DIVERTICULOSIS History of Any Multi-Drug Resistant Organisms: None Reported Past Surgical History: Appendectomy, Bariatric Surgery, Joint Replacement, Orthopedic Surgery Additional Past Surgical History / Comment(s): GATRIC SLEEVE. BILAT TKA. COLONOSCOPY. EYELID SX. RHINOPLASTY. Back Surgery 09/03/20 Past Anesthesia/Blood Transfusion Reactions: Motion Sickness Past Psychological History: No Psychological Hx Reported Smoking Status: Former smoker, Vaper Past Alcohol Use History: Rare Additional Past Alcohol Use History / Comment(s): QUIT SMOKING CIGARETTES 1988-. Quit vaping Jul 2021 Past Drug Use History: None Reported - Past Family History Mother Family Medical History: No Reported History Sister(s) Family Medical History: Cancer Father Family Medical History: Cancer Medications and Allergies Home Medications Medication Instructions Recorded Confirmed Type Ferrous Sulfate [Feosol] 325 mg PO DAILY 08/24/19 07/10/21 History Levothyroxine Sodium [Synthroid] 100 mcg PO DAILY 08/24/19 07/10/21 History Loratadine 10 mg PO DAILY 08/24/19 07/10/21 History Omeprazole 20 mg PO DAILY 08/24/19 07/10/21 History metFORMIN HCL [Glucophage] 500 mg PO DAILY 08/24/19 07/10/21 History Lisinopril [Zestril] 10 mg PO DAILY 08/25/19 07/10/21 History Azithromycin [Zithromax Z-pack (6 See Taper PO DAILY 07/10/21 07/10/21 History tabs)] Cholecalciferol [Vitamin D3 (25 25 mcg PO DAILY 07/10/21 07/10/21 History Mcg = 1000 Iu)] DULoxetine HCL [Cymbalta] 20 mg PO HS 07/10/21 07/10/21 History Dm/Acetaminophen/Doxylamine [Vicks 2 cap PO Q6H PRN 07/10/21 07/10/21 History Nyquil Liquicaps] Fluticasone Nasal [place] [Flonase 1 spr EA NOSTRIL DAILY 07/10/21 07/10/21 History Nasal [place]] Gabapentin 800 mg PO TID 07/10/21 07/10/21 History Multivitamins, Thera [Multivitamin 1 tab PO BID 07/10/21 07/10/21 History (formulary)] Tadalafil [Cialis] 5 mg PO DAILY PRN 07/10/21 07/10/21 History buPROPion [Wellbutrin] 150 mg PO DAILY 07/10/21 07/10/21 History guaiFENesin [Mucinex] 600 mg PO BID 07/10/21 07/10/21 History Allergies Allergy/AdvReac Type Severity Reaction Status Date / Time No Known Allergies Allergy Verified 07/10/21 16:49 Physical Exam Osteopathic Statement: *. No significant issues noted on an osteopathic structural exam other than those noted in the History and Physical/Consult. Vitals: Vital Signs Temp Pulse Pulse Resp BP BP Pulse Ox 07/11/21 15:00 98.1 F 55 L 16 119/74 93 L 07/11/21 08:00 97.7 F 55 L 17 121/78 94 L 07/11/21 07:15 18 07/11/21 06:16 97.4 F L 50 L 18 128/70 93 L 07/11/21 02:02 22 07/11/21 02:00 97.7 F 66 20 139/77 91 L 07/11/21 00:45 98.3 F 56 L 22 120/73 95 07/10/21 20:45 98.6 F 75 18 106/67 94 L 07/10/21 16:20 20 07/10/21 16:18 102.2 F H 100 22 125/84 88 L Intake and Output 07/11/21 07/11/21 07/11/21 06:59 14:59 22:59 Other: Voiding Method Urinal Urinal # Voids 0 No acute distress, oriented 3. Saturations are 93-94% on 3 L nasal cannula. HEENT examination is grossly unremarkable. Neck supple. Full range of motion. No adenopathy thyromegaly or neck vein d istention. Cardiovascular examination reveals regular rhythm rate. S1-S2 normal. No S3 or S4. No discernible murmur noted. Heart rate 55 bpm. Lungs reveal diffuse bilateral crackles. They were quite significant. No wheezes or rhonchi. Breath sounds are equal bilaterally. Abdomen soft bowel sounds are heard. No masses or tenderness. Extremities are intact. No cyanosis clubbing or edema. Skin is without rash or lesion. Neurologic examination is brief but nonfocal. Results - Laboratory Findings CBC and BMP: 07/10/21 17:03 07/11/21 07:46 PT/INR, D-dimer PT 10.3 sec (9.0-12.0) 07/10/21 17:03 INR 1.0 (<1.2) 07/10/21 17:03 D-Dimer 1.27 mg/L FEU (<0.60) H 07/10/21 17:03 Abnormal lab findings: Abnormal Labs 07/10/21 07/10/21 07/10/21 14:34 17:03 17:03 Plt Count 136 L Lymphocytes # 0.5 L D-Dimer 1.27 H Sodium BUN Creatinine BUN/Creatinine Ratio Glucose POC Glucose (mg/dL) Ferritin Lactate Dehydrogenase C-Reactive Protein Procalcitonin Ur Specific [place] Urine Protein Urine WBC Urine Mucus Coronavirus (PCR) Detected A 07/10/21 07/10/21 07/10/21 17:03 17:03 21:00 Plt Count Lymphocytes # D-Dimer Sodium 135 L BUN 34 H Creatinine 1.53 H BUN/Creatinine Ratio Glucose 121 H POC Glucose (mg/dL) Ferritin 908.0 H Lactate Dehydrogenase 1378 H C-Reactive Protein 7.6 H Procalcitonin 0.26 H Ur Specific [place] 1.041 H Urine Protein 1+ H Urine WBC 7 H Urine Mucus Rare H Coronavirus (PCR) 07/11/21 07/11/21 07/11/21 07:20 07:46 12:04 Plt Count Lymphocytes # D-Dimer Sodium BUN Creatinine BUN/Creatinine Ratio 22.64 H Glucose 208 H POC Glucose (mg/dL) 256 H 188 H Ferritin Lactate Dehydrogenase C-Reactive Protein Procalcitonin Ur Specific [place] Urine Protein Urine WBC Urine Mucus Coronavirus (PCR) - Diagnostic Findings Chest x-ray: image reviewed CT scan - chest: image reviewed Assessment and Plan Assessment: Acute hypoxemic respiratory failure secondary to coronavirus associated pneumonia. Elevated inflammatory markers, secondary to coronavirus infection. No evidence of pulmonary embolism on CT angiogram. History of hypothyroidism. History of gastroesophageal reflux disease. History of diabetes mellitus. History of hypertension. History of diverticular disease. Prior history of bariatric surgery for obesity. History of prior tobacco use. Plan: Plan dated 07/11/2021. The patient is currently on albuterol inhaler, vitamin C, vitamin D3, Decadron, Lovenox, and zinc. The patient is not sick enough to receive CARINE. The patient is beyond the window for REM. We will continue to follow and make recommendations along the way. The Decadron will be cut back to once a day. X- rays, and labs, and medications are all reviewed. Prognosis is guarded. We will continue to follow make recommendations where appropriate. Time with Patient: Greater than 30
[2021-07-11 16:48] LABS: Glucose,Whole Blood 212 mg/dL (75-99)
[2021-07-11 19:42] LABS: Glucose,Whole Blood 292 mg/dL (75-99)
[2021-07-11] MEDS: DULoxetine HCL 20 MG CAPSULE.DR PO SCH (19:57)
[2021-07-11] MEDS: ENOXAPARIN 40 MG/0.4 ML SYRINGE SQ SCH (19:57)
[2021-07-12] MEDS: LEVOTHYROXINE 100 MCG TAB PO SCH (05:38)
[2021-07-12 06:57] LABS: Glucose,Whole Blood 243 mg/dL (75-99)
[2021-07-12] MEDS: buPROPion 75 MG TAB PO SCH (07:37)
[2021-07-12] MEDS: ASCORBIC ACID 500 MG TAB PO SCH (07:37)
[2021-07-12] MEDS: PANTOPRAZOLE 40 MG TABLET PO SCH (07:37)
[2021-07-12] MEDS: INSULIN ASPART (NovoLOG) 100 UNIT/ML VIAL SQ SCH ×4 (07:37→21:34)
[2021-07-12] MEDS: CHOLECALCIFEROL 25 MCG (1000 IU) TABLET PO SCH (07:37)
[2021-07-12] MEDS: metFORMIN 500 MG TAB PO SCH (07:38)
[2021-07-12] MEDS: ZINC SULFATE 220 MG CAP PO SCH (07:38)
[2021-07-12] MEDS: FERROUS SULFATE 325 MG TAB PO SCH (07:38)
[2021-07-12] MEDS: LORATADINE 10 MG TAB PO SCH (07:38)
[2021-07-12] MEDS: MULTIVITAMINS, THERA 1 EACH TAB PO SCH ×2 (07:38→21:34)
[2021-07-12] MEDS: GABAPENTIN 400 MG CAP PO SCH ×3 (07:38→21:33)
[2021-07-12] MEDS: lisinopriL 10 MG TAB PO SCH (07:38)
[2021-07-12] MEDS: FLUTICASONE 50MCG/SPRAY NASAL 16GM EA NOSTRIL SCH (07:39)
[2021-07-12] MEDS: DEXAMETHASONE SOD PHOSPHATE 10 MG/ML 1 ML VIAL IVP SCH (07:39)
--- NOTE | 2021-07-12 09:32 | P.CONS ---
History of Present Illness - Reason for Consult Consult date: 07/11/21 covid 19 Requesting physician: Dudley Danielson - Chief Complaint shortness of breath/cough x 10 days - History of Present Illness History of present illness : Patient is a 65-year-old male presenting to the ER for evaluation of increasing shortness of breath and this patient symptom has been going on for about 10 days since June 30, 2021 with worsening symptoms over the last few days patient complaining of feeling weakness is able to get up and walk however feels very winded and started having a coughing spells if he walks a short distance also complaining of extreme fatigue and body aches patient denies having any chest pain though he did have a cough moderate intensity but not bring up any purulent sputum some nausea decreased oral intake but no vomiting no abdominal pain he did have some diarrhea patient not vaccinated for COVID-19 on presentation to the hospital the patient did have a fever of 102.2 F patient was hypoxic with O2 sats of 88% on room air is currently 95% on 3 L nasal cannula patient did have a normal white count with lymphopenia D-dimer was mildly elevated creatinine is normal liver exams are normal white count was mildly elevated frye PCR was positive influenza was negative patient did have a chest x-ray with evidence of patchy peripheral vague densities he also have a CT angiogram of the chest no evidence of PE extensive groundglass interstitial infiltrate consistent with multifocal interstitial pneumonia patient has been admitted to hospital infectious disease was consulted for further management Review of system: CONSTITUTIONAL: Positive for weakness along with the fever. EYES: No complaint. ENT: No complaint. RESPIRATORY: As per history of present illness. CARDIOVASCULAR: No complaint. GENITOURINARY: No complaint. GASTROINTESTINAL: As per history of present illness. MUSCULOSKELETAL: No complaint. INTEGUMENTARY: No complaint. PSYCHOLOGIC: No complaint. ENDOCRINE: No complaint. NEUROLOGIC: No complaint. Past medical history : Reviewed, documented below Past surgical history : Reviewed, documented below Social history: Reviewed, documented below Medications: Reviewed, as documented below EXAMINATION: Vital sigans= Reviewed and documented below GENERAL DESCRIPTION: Middle-aged male lying in bed, no distress. No tachypnea or accessory muscle of respiration use. HEENT: Shows Pallor , no scleral icterus. Oral mucous membrane is dry. NECK: Trachea central, no thyromegaly. LUNGS: Unlabored breathing. Coarse breath sounds bilaterally. No wheeze or crackle. HEART: S1, S2, regular rate and rhythm. ABDOMEN: Soft, no tenderness , guarding or rigidity EXTREMITIES: No edema of feet. SKIN: No rash, no masses palpable. NEUROLOGICAL: The patient is awake, alert, oriented x3, mood and affect normal. LABS AND RADIOLOGY: Reviewed results see below Assessment : Patient presented to hospital with acute respiratory failure in this patient with evidence of multifocal pneumonia extensive secondary to the COVID-19 infection symptom has been going on for more than 10 days and is currently out of the therapeutic window for remdesivir per [facility] policy and no evidence of any secondary bacterial pneumonia Plan: 1-patient to continue with the dexamethasone Lovenox zinc and ascorbic acid 2-no need for systemic antibiotic therapy 3-droplet isolation and respiratory support We will follow on clinical condition and cultures to further adjust medication if needed Thank you for this consultation we will follow the patient along with you Past Medical History Past Medical History: Diabetes Mellitus, GERD/Reflux, Hypertension, Thyroid Disorder Additional Past Medical History / Comment(s): DIVERTICULOSIS History of Any Multi-Drug Resistant Organisms: None Reported Past Surgical History: Appendectomy, Bariatric Surgery, Joint Replacement, Orthopedic Surgery Additional Past Surgical History / Comment(s): GATRIC SLEEVE. BILAT TKA. COLONOSCOPY. EYELID SX. RHINOPLASTY. Back Surgery 09/03/20 Past Anesthesia/Blood Transfusion Reactions: Motion Sickness Past Psychological History: No Psychological Hx Reported Smoking Status: Former smoker, Vaper Past Alcohol Use History: Rare Additional Past Alcohol Use History / Comment(s): QUIT SMOKING CIGARETTES 1988-. Quit vaping Jul 2021 Past Drug Use History: None Reported - Past Family History Mother Family Medical History: No Reported History Sister(s) Family Medical History: Cancer Father Family Medical History: Cancer Medications and Allergies Home Medications Medication Instructions Recorded Confirmed Type Ferrous Sulfate [Feosol] 325 mg PO DAILY 08/24/19 07/10/21 History Levothyroxine Sodium [Synthroid] 100 mcg PO DAILY 08/24/19 07/10/21 History Loratadine 10 mg PO DAILY 08/24/19 07/10/21 History Omeprazole 20 mg PO DAILY 08/24/19 07/10/21 History metFORMIN HCL [Glucophage] 500 mg PO DAILY 08/24/19 07/10/21 History Lisinopril [Zestril] 10 mg PO DAILY 08/25/19 07/10/21 History Azithromycin [Zithromax Z-pack (6 See Taper PO DAILY 07/10/21 07/10/21 History tabs)] Cholecalciferol [Vitamin D3 (25 25 mcg PO DAILY 07/10/21 07/10/21 History Mcg = 1000 Iu)] DULoxetine HCL [Cymbalta] 20 mg PO HS 07/10/21 07/10/21 History Dm/Acetaminophen/Doxylamine [Vicks 2 cap PO Q6H PRN 07/10/21 07/10/21 History Nyquil Liquicaps] Fluticasone Nasal [place] [Flonase 1 spr EA NOSTRIL DAILY 07/10/21 07/10/21 History Nasal [place]] Gabapentin 800 mg PO TID 07/10/21 07/10/21 History Multivitamins, Thera [Multivitamin 1 tab PO BID 07/10/21 07/10/21 History (formulary)] Tadalafil [Cialis] 5 mg PO DAILY PRN 07/10/21 07/10/21 History buPROPion [Wellbutrin] 150 mg PO DAILY 07/10/21 07/10/21 History guaiFENesin [Mucinex] 600 mg PO BID 07/10/21 07/10/21 History Allergies Allergy/AdvReac Type Severity Reaction Status Date / Time No Known Allergies Allergy Verified 07/10/21 16:49 Physical Exam Vitals: Vital Signs Temp Pulse Pulse Resp BP BP Pulse Ox 07/11/21 15:00 98.1 F 55 L 16 119/74 93 L 07/11/21 08:00 97.7 F 55 L 17 121/78 94 L 07/11/21 07:15 18 07/11/21 06:16 97.4 F L 50 L 18 128/70 93 L 07/11/21 02:02 22 07/11/21 02:00 97.7 F 66 20 139/77 91 L 07/11/21 00:45 98.3 F 56 L 22 120/73 95 07/10/21 20:45 98.6 F 75 18 106/67 94 L 07/10/21 16:20 20 07/10/21 16:18 102.2 F H 100 22 125/84 88 L Intake and Output 0107/11/21 07/11/21 06:59 14:59 22:59 Other: Voiding Method Urinal Urinal # Voids 0 Results CBC & Chem 7: 07/10/21 17:03 07/11/21 07:46 Labs: Abnormal Lab Results - Last 24 Hours (Table) 07/10/21 07/10/21 07/10/21 Range/Units 17:03 17:03 17:03 Plt Count 136 L (150-450) k/uL Lymphocytes # 0.5 L (1.0-4.8) k/uL D-Dimer 1.27 H (<0.60) mg/L FEU Sodium 135 L (137-145) mmol/L BUN 34 H (9-20) mg/dL Creatinine 1.53 H (0.66-1.25) mg/dL BUN/Creatinine Ratio (12.00-20.00) Ratio Glucose 121 H (74-99) mg/dL POC Glucose (mg/dL) (75-99) mg/dL Ferritin 908.0 H (22.0-322.0) ng/mL Lactate Dehydrogenase 1378 H (313-618) U/L C-Reactive Protein 7.6 H (<1.0) mg/dL Procalcitonin (0.02-0.09) ng/mL Ur Specific [place] (1.001-1.035) Urine Protein (Negative) Urine WBC (0-5) /hpf Urine Mucus (None) /hpf 07/10/21 07/10/21 07/11/21 Range/Units 17:03 21:00 07:20 Plt Count (150-450) k/uL Lymphocytes # (1.0-4.8) k/uL D-Dimer (<0.60) mg/L FEU Sodium (137-145) mmol/L BUN (9-20) mg/dL Creatinine (0.66-1.25) mg/dL BUN/Creatinine Ratio (12.00-20.00) Ratio Glucose (74-99) mg/dL POC Glucose (mg/dL) 256 H (75-99) mg/dL Ferritin (22.0-322.0) ng/mL Lactate Dehydrogenase (313-618) U/L C-Reactive Protein (<1.0) mg/dL Procalcitonin 0.26 H (0.02-0.09) ng/mL Ur Specific [place] 1.041 H (1.001-1.035) Urine Protein 1+ H (Negative) Urine WBC 7 H (0-5) /hpf Urine Mucus Rare H (None) /hpf 07/11/21 07/11/21 Range/Units 07:46 12:04 Plt Count (150-450) k/uL Lymphocytes # (1.0-4.8) k/uL D-Dimer (<0.60) mg/L FEU Sodium (137-145) mmol/L BUN (9-20) mg/dL Creatinine (0.66-1.25) mg/dL BUN/Creatinine Ratio 22.64 H (12.00-20.00) Ratio Glucose 208 H (74-99) mg/dL POC Glucose (mg/dL) 188 H (75-99) mg/dL Ferritin (22.0-322.0) ng/mL Lactate Dehydrogenase (313-618) U/L C-Reactive Protein (<1.0) mg/dL Procalcitonin (0.02-0.09) ng/mL Ur Specific [place] (1.001-1.035) Urine Protein (Negative) Urine WBC (0-5) /hpf Urine Mucus (None) /hpf
[2021-07-12 11:25] LABS: Glucose,Whole Blood 173 mg/dL (75-99)
[2021-07-12 11:43] LABS: Basophils # (A) 0.04 X 10*3/uL (0.00-0.10); Basophils % (A) 0.3 %; Eosinophils # (A) 0 X 10*3/uL (0.04-0.35); Eosinophils % (A) 0 %; HCT 45.9 % (39.6-50.0); HGB 14.9 g/dL (13.0-17.0); Lymphocytes % (A) 6.4 %; MCH 28.1 pg (27.0-32.0); MCHC 32.5 g/dL (32.0-37.0); MCV 86.4 fL (80.0-97.0); Mean Platelet Volume 10.3 fL (9.5-12.2); Monocytes # (A) 0.35 X 10*3/uL (0.20-1.00); Monocytes % (A) 2.8 %; Neutrophils % (A) 89.9 %; Platelet Count 150 X 10*3/uL (140-440); RBC 5.31 X 10*6/uL (4.40-5.60); RDW 12.4 % (11.5-14.5); WBC 12.56 X 10*3/uL (4.50-10.00)
[2021-07-12] MEDS ORDERED: MECLIZINE 12.5 MG TAB PO PRN (11:48)
[2021-07-12 12:33] LABS: Albumin 3.3 g/dL (3.8-4.9); Albumin/Globulin Ratio 1.21 (1.60-3.17); Anion Gap 11.5 mmol/L (10.00-18.00); BUN/Creat Ratio 29.46 Ratio (12.00-20.00); Blood Urea Nitrogen 27.6 mg/dL (9.0-27.0); Calcium 9.3 mg/dL (8.7-10.3); Carbon Dioxide 17.4 mmol/L (20.0-27.5); Globulin 2.7 g/dL (1.6-3.3); Non-African American GFR(CKD) 86.3 (60.0-200.0); Potassium 4.9 mmol/L (3.5-5.5); Total Bilirubin 0.3 mg/dL (0.30-1.20)
--- NOTE | 2021-07-12 13:48 | P.PN ---
Subjective Progress Note Date: 07/12/21 Principal diagnosis: CoVID pneumonia 65-year-old male, who presented to the emergency department, on July 10, and plenty of a number things including fever, chills, shortness of breath, cough, nausea, and general weakness, since June 30. The patient becomes very winded with any exercise or exertion, and notices that he starts to cough. The cough is mostly dry and harsh, and very painful. The patient is on vaccinated against coronavirus. His roommate, is also in the hospital currently, with coronavirus infection. The patient tested positive for coronavirus on July 10. The patient has a history of diabetes mellitus, diverticular disease, gastroesophageal reflux disease, hypertension, and hypothyroidism. The patient has also had previous bariatric surgery for obesity. The patient is a former smoker. Laboratory data includes a white count 6.8, hemoglobin 16.5, hematocrit 48.1, and a platelet count as 136,000. D-dimer was 1.27. Sodium 137, potassium 4.2, chlorides 104, CO2 20, anion gap 13, BUN 25, and creatinine 1.1. Glucose is 208. Pro-calcitonin level was 0.26. C-reactive protein 7.6. LDH 1378. Urine is negative. Chest x-ray shows diffuse patchy infiltrates, and computed tomography scan though negative for pulmonary embolism, showed significant bilateral groundglass opacities consistent with coronavirus pneumonia. The patient is seen today 07/12/2021 and follow-up on the regular medical floor. He is currently resting comfortably in bed. Later this left side. Awake and alert in no acute distress. He is maintaining O2 saturations in the 90s on 3 L/m per nasal cannula. White count 12.5. Hemoglobin 14.9. Lymphocytes 0.8. Sodium 138. Potassium 4.9. Creatinine 0.8. Local to 48. AST 32. AST 18. He's been initiated on Decadron, Lovenox, vitamin supplements. Objective - Vital Signs Vital signs: Vital Signs Temp 98 F 07/12/21 09:32 Pulse 56 L 07/12/21 09:32 Resp 17 07/12/21 09:32 BP 125/70 07/12/21 09:32 Pulse Ox 92 L 07/12/21 09:32 Intake & Output 07/11/21 07/12/21 07/12/21 18:59 06:59 18:59 Intake Total 200 Output Total 600 Balance -400 Intake: Oral 200 Output: Urine 600 Other: Voiding Method Urinal Urinal - Exam GENERAL EXAM: Alert, pleasant 65-year-old gentleman on 3 L nasal cannula, comfortable in no apparent distress. HEAD: Normocephalic. EYES: Normal reaction of pupils, equal size. NOSE: Clear with pink turbinates. THROAT: No erythema or exudates. NECK: No masses, no JVD. CHEST: No chest wall deformity. LUNGS: Equal air entry with faint crackles in the posterior bases. CVS: S1 and S2 normal with no audible murmur, regular rhythm. ABDOMEN: No hepatosplenomegaly, normal bowel sounds, no guarding or rigidity. SPINE: No scoliosis or deformity SKIN: No rashes CENTRAL NERVOUS SYSTEM: No focal deficits, tone is normal in all 4 extremities. EXTREMITIES: There is no peripheral edema. No clubbing, no cyanosis. Peripheral pulses are intact. - Labs CBC & Chem 7: 07/12/21 07:58 07/12/21 07:58 Labs: Abnormal Lab Results - Last 24 Hours (Table) 07/11/21 07/11/21 07/12/21 Range/Units 16:47 19:40 06:55 WBC (4.50-10.00) X 10*3/uL Immature Gran # (0.00-0.04) X 10*3/uL Neutrophils # (1.80-7.70) X 10*3/uL Lymphocytes # (0.90-5.00) X 10*3/uL Eosinophils # (0.04-0.35) X 10*3/uL Carbon Dioxide (20.0-27.5) mmol/L BUN (9.0-27.0) mg/dL BUN/Creatinine Ratio (12.00-20.00) Ratio Glucose (70-110) mg/dL POC Glucose (mg/dL) 212 H 292 H 243 H (75-99) mg/dL Total Protein (6.2-8.2) g/dL Albumin (3.8-4.9) g/dL Albumin/Globulin Ratio (1.60-3.17) g/dL 07/12/21 07/12/21 07/12/21 Range/Units 07:58 07:58 11:22 WBC 12.56 H (4.50-10.00) X 10*3/uL Immature Gran # 0.07 H (0.00-0.04) X 10*3/uL Neutrophils # 11.30 H (1.80-7.70) X 10*3/uL Lymphocytes # 0.80 L (0.90-5.00) X 10*3/uL Eosinophils # 0 L (0.04-0.35) X 10*3/uL Carbon Dioxide 17.4 L (20.0-27.5) mmol/L BUN 27.6 H (9.0-27.0) mg/dL BUN/Creatinine Ratio 29.46 H (12.00-20.00) Ratio Glucose 248 H (70-110) mg/dL POC Glucose (mg/dL) 173 H (75-99) mg/dL Total Protein 6.0 L (6.2-8.2) g/dL Albumin 3.3 L (3.8-4.9) g/dL Albumin/Globulin Ratio 1.21 L (1.60-3.17) g/dL Assessment and Plan Assessment: 1 Acute hypoxemic respiratory failure secondary to coronavirus associated pneumo nadege. 2 Elevated inflammatory markers, secondary to coronavirus infection. 3 No evidence of pulmonary embolism on CT angiogram. 4 History of hypothyroidism. 5 History of gastroesophageal reflux disease. 6 History of diabetes mellitus. 7 History of hypertension. 8 History of diverticular disease. 9 Prior history of bariatric surgery for obesity. 10 History of prior tobacco use. Plan: The patient was seen and evaluated today Currently stable from the pulmonary standpoint On 3 L, titrate as tolerated Continue Decadron, Lovenox, vitamin supplements Follow-up chest x-ray, labs in the a.m. We will continue to follow I, the cosigning physician, performed a history & physical examination of the patient. Lungs sounds with faint crackles in the posterior. Maintaining good O2 saturations in the 90s on 3 L/m per nasal cannula. I discussed the assessment and plan of care with my nurse practitioner, Tosin Espana. I attest to the above note as dictated by her.
[2021-07-12 16:13] LABS: Glucose,Whole Blood 270 mg/dL (75-99)
[2021-07-12] MEDS: MECLIZINE 12.5 MG TAB PO SCH ×2 (17:05→21:35)
[2021-07-12] MEDS: SODIUM CHLORIDE 0.9% 1,000 ML IV SCH (17:34)
--- NOTE | 2021-07-12 17:40 | PN ---
PROGRESS NOTE DATE OF SERVICE: 07/12/2020 This 65-year-old gentleman who was admitted with acute Covid-19 infection with acute Covid-19 bilateral interstitial pneumonia with acute hypoxic respiratory failure is being closely monitored at this time. The patient was hypoxic and is on 15 L high-flow oxygen at this time. PAST MEDICAL HISTORY: Reviewed. REVIEW OF SYSTEMS: Cardiovascular system: No angina. Respiratory system: As mentioned earlier. GI: As mentioned earlier. : No dysuria. Nervous system: No numbness or weakness. CURRENT MEDICATIONS: Reviewed include Tylenol, vitamin C, Wellbutrin, vitamin D3, Decadron, Cymbalta, Lovenox. Doses reviewed. PHYSICAL EXAMINATION: Alert and oriented x3. Pulse is 63, blood pressure 124/60, respiration 18, temperature 97.6, pulse ox 92% on 15 L oxygen. HEENT: Conjunctivae normal. Oral mucosa moist. NECK: No jugular venous distention. No lymph node enlargement. CARDIOVASCULAR: S1, S2, muffled. No S3, no S4, RESPIRATORY: Diminished breath sounds at the bases. A few scattered rhonchi and crackles. ABDOMEN: Soft, nontender. LEGS: No edema, no swelling. NERVOUS SYSTEM: Higher functions mentioned earlier. Moves all four limbs. No focal motor or sensory deficits. LYMPHATICS: No lymph node in neck or axilla. SKIN: No rash. JOINTS: No active deforming arthropathy. LAB STUDIES: WBC 12.5, hemoglobin 14.8, sodium 130, potassium 4.2. Other labs are noted. Glucose 173. ASSESSMENT: 1. Acute Covid-19 infection with acute Covid-19 bilateral interstitial pneumonia with acute hypoxic respiratory failure. 2. Thrombocytopenia. 3. Lymphopenia. 4. Elevated D-dimer without any evidence of pulmonary embolism. 5. Hyponatremia. 6. Increased creatinine with acute renal failure with acute tubular necrosis secondary to Covid-19 or dehydration. 7. Elevated plasma glucose. 8. Elevated ferritin. 9. Elevated CRP, inflammatory markers of Covid-19. 10.Elevated procalcitonin. 11.History of diabetes type 2. 12.Hypertension. 13.Hypothyroidism. 14.History of diverticulosis. 15.History of bariatric surgery. 16.History of DJD. 17.History of vaping and history of smoking. 18.Obesity with body mass index of 37. 19.FULL CODE. RECOMMENDATIONS: Recommend to continue current management, continue symptomatic treatment. Continue with bronchodilators. Continue the rest of the medications. Continue steroids. Continue Lovenox. Repeat labs in the morning. Monitor blood sugars closely. Prognosis guarded because of multiple complex medical issues. Further recommendations to follow. [id number] / IJN: [id number] /
[2021-07-12 20:08] LABS: Glucose,Whole Blood 270 mg/dL (75-99)
--- NOTE | 2021-07-12 20:43 | PN ---
PROGRESS NOTE DATE OF SERVICE: 07/12/2021 REASON FOR FOLLOWUP: COVID-19 pneumonia. INTERVAL HISTORY: The patient is afebrile. The patient has been complaining of significant weakness and shortness of breath with minimal exertion. The patient denies having any chest pain. Continues to have a cough. Not bringing up any sputum. No abdominal pain or diarrhea. PHYSICAL EXAMINATION: Blood pressure is 116/66, pulse of 63, temperature 97.5. He is 90% on 15 L high-flow oxygen. General description is a middle-aged male lying in bed in no distress. Respiratory system: Unlabored breathing. Coarse breath sounds bilaterally. No wheeze. Heart S1, S2. Regular rate and rhythm. Abdomen soft, no tenderness. LABS: Hemoglobin is 14, white count 12.56, creatinine 0.9. DIAGNOSTIC IMPRESSION AND PLAN: Patient with acute respiratory failure secondary to acute COVID-19 pneumonia in this patient with slight worsening of his clinical condition, requiring more supplemental oxygen. Patient is currently on dexamethasone, Lovenox, zinc and ascorbic acid; to continue and monitor his clinical course closely. Prognosis remains guarded. MMODL / IJN: [id number] /
[2021-07-12] MEDS: DULoxetine HCL 20 MG CAPSULE.DR PO SCH (21:34)
[2021-07-12] MEDS: ENOXAPARIN 40 MG/0.4 ML SYRINGE SQ SCH (21:34)
[2021-07-13] MEDS: LEVOTHYROXINE 100 MCG TAB PO SCH (05:44)
[2021-07-13 07:15] LABS: Glucose,Whole Blood 125 mg/dL (75-99)
--- NOTE | 2021-07-13 07:24 | XR ---
EXAMINATION TYPE: XR chest 1V DATE OF EXAM: 07/13/2021 CLINICAL HISTORY: Difficulty breathing and covid progress study. TECHNIQUE: Single AP portable upright view of the chest is obtained. COMPARISON: Chest x-ray from 3 days earlier FINDINGS: Bilateral multifocal and confluent opacities greatest in the periphery redemonstrated. Car diac silhouette size is stable and within normal limits. Osseous structures are intact. IMPRESSION: Bilateral multifocal and confluent opacities greatest in the periphery consistent with co vid-19 infection are redemonstrated. No significant change from prior study.
[2021-07-13] MEDS: MULTIVITAMINS, THERA 1 EACH TAB PO SCH ×2 (08:06→20:35)
[2021-07-13] MEDS: metFORMIN 500 MG TAB PO SCH (08:06)
[2021-07-13] MEDS: GABAPENTIN 400 MG CAP PO SCH ×3 (08:06→20:35)
[2021-07-13] MEDS: FERROUS SULFATE 325 MG TAB PO SCH (08:06)
[2021-07-13] MEDS: LORATADINE 10 MG TAB PO SCH (08:06)
[2021-07-13] MEDS: ASCORBIC ACID 500 MG TAB PO SCH (08:06)
[2021-07-13] MEDS: ZINC SULFATE 220 MG CAP PO SCH (08:06)
[2021-07-13] MEDS: CHOLECALCIFEROL 25 MCG (1000 IU) TABLET PO SCH (08:06)
[2021-07-13] MEDS: INSULIN ASPART (NovoLOG) 100 UNIT/ML VIAL SQ SCH ×4 (08:07→20:35)
[2021-07-13] MEDS: PANTOPRAZOLE 40 MG TABLET PO SCH (08:07)
[2021-07-13] MEDS: DEXAMETHASONE SOD PHOSPHATE 10 MG/ML 1 ML VIAL IVP SCH (08:07)
[2021-07-13] MEDS: FLUTICASONE 50MCG/SPRAY NASAL 16GM EA NOSTRIL SCH (08:08)
[2021-07-13] MEDS: buPROPion 75 MG TAB PO SCH (08:34)
[2021-07-13] MEDS: MECLIZINE 12.5 MG TAB PO SCH ×3 (08:34→20:39)
[2021-07-13] MEDS: lisinopriL 10 MG TAB PO SCH (08:35)
[2021-07-13 11:35] LABS: Basophils # (A) 0.01 X 10*3/uL (0.00-0.10); Basophils % (A) 0.1 %; Eosinophils # (A) 0 X 10*3/uL (0.04-0.35); Eosinophils % (A) 0 %; HCT 41.6 % (39.6-50.0); HGB 13.8 g/dL (13.0-17.0); Lymphocytes # (A) 0.95 X 10*3/uL (0.90-5.00); MCH 28.2 pg (27.0-32.0); MCHC 33.2 g/dL (32.0-37.0); MCV 85.1 fL (80.0-97.0); Monocytes # (A) 0.68 X 10*3/uL (0.20-1.00); Neutrophils # (A) 11.91 X 10*3/uL (1.80-7.70); Neutrophils % (A) 87.3 %; Platelet Count 190 X 10*3/uL (140-440); RBC 4.89 X 10*6/uL (4.40-5.60); RDW 12.6 % (11.5-14.5); WBC 13.63 X 10*3/uL (4.50-10.00)
[2021-07-13 11:36] LABS: Glucose,Whole Blood 255 mg/dL (75-99)
[2021-07-13 12:05] LABS: African American GFR (CKD) 106.8 (60.0-200.0); Albumin 3.1 g/dL (3.8-4.9); Albumin/Globulin Ratio 1.24 (1.60-3.17); Anion Gap 11.8 mmol/L (10.00-18.00); BUN/Creat Ratio 26.97 Ratio (12.00-20.00); Blood Urea Nitrogen 23.3 mg/dL (9.0-27.0); C Reactive Protein 1.5 mg/dL (0.00-0.80); Calcium 9.2 mg/dL (8.7-10.3); Carbon Dioxide 18.8 mmol/L (20.0-27.5); Globulin 2.5 g/dL (1.6-3.3); Non-African American GFR(CKD) 92.1 (60.0-200.0); Potassium 4.7 mmol/L (3.5-5.5); Total Bilirubin 0.3 mg/dL (0.30-1.20); Total Protein 5.6 g/dL (6.2-8.2)
[2021-07-13] MEDS: SODIUM CHLORIDE 0.9% 1,000 ML IV SCH ×2 (12:18)
--- NOTE | 2021-07-13 14:46 | P.PN ---
Subjective Progress Note Date: 07/13/21 Principal diagnosis: CoVID pneumonia 65-year-old male, who presented to the emergency department, on July 10, and plenty of a number things including fever, chills, shortness of breath, cough, nausea, and general weakness, since June 30. The patient becomes very winded with any exercise or exertion, and notices that he starts to cough. The cough is mostly dry and harsh, and very painful. The patient is on vaccinated against coronavirus. His roommate, is also in the hospital currently, with coronavirus infection. The patient tested positive for coronavirus on July 10. The patient has a history of diabetes mellitus, diverticular disease, gastroesophageal reflux disease, hypertension, and hypothyroidism. The patient has also had previous bariatric surgery for obesity. The patient is a former smoker. Laboratory data includes a white count 6.8, hemoglobin 16.5, hematocrit 48.1, and a platelet count as 136,000. D-dimer was 1.27. Sodium 137, potassium 4.2, chlorides 104, CO2 20, anion gap 13, BUN 25, and creatinine 1.1. Glucose is 208. Pro-calcitonin level was 0.26. C-reactive protein 7.6. LDH 1378. Urine is negative. Chest x-ray shows diffuse patchy infiltrates, and computed tomography scan though negative for pulmonary embolism, showed significant bilateral groundglass opacities consistent with coronavirus pneumonia. The patient is seen today 07/12/2021 and follow-up on the regular medical floor. He is currently resting comfortably in bed. Later this left side. Awake and alert in no acute distress. He is maintaining O2 saturations in the 90s on 3 L/m per nasal cannula. White count 12.5. Hemoglobin 14.9. Lymphocytes 0.8. Sodium 138. Potassium 4.9. Creatinine 0.8. Local to 48. AST 32. AST 18. He's been initiated on Decadron, Lovenox, vitamin supplements. The patient is seen today 07/13/2021 in follow-up on the regular medical floor. He is currently sitting up in a chair at the bedside. Awake and alert in no ac agdaagux distress. He is now requiring 15 L high flow nasal cannula to maintain O2 saturations at 92%. He is dyspneic with minimal exertion. Normal saline at 75 ML's per hour. Chest x-ray continues to show bilateral multifocal patchy opacities greater in the periphery consistent with COVID-19 pneumonia. No significant change from previous. White count 13.6. Hemoglobin 13.8. Lymphocytes 0.95. D-dimer 0.86. Sodium 139. Potassium 4.7. Creatinine 0.9. Glucose 138. LDH 430. C-reactive protein 1.5. He is continued on Decadron, Lovenox, vitamin supplements. Objective - Vital Signs Vital signs: Vital Signs Temp 97.4 F L 07/13/21 09:07 Pulse 68 07/13/21 09:07 Resp 19 07/13/21 09:07 BP 119/69 07/13/21 09:07 Pulse Ox 92 L 07/13/21 09:07 Intake & Output 07/12/21 07/13/21 07/13/21 18:59 06:59 18:59 Intake Total 300 600 Output Total 1000 Balance -1000 300 600 Intake: Intake, IV Titration 600 Amount Sodium Chloride 0.9% 1, 600 000 ml @ 75 mls/hr IV . [id number] [facility] Rx#:[id number] Oral 300 Output: Urine 1000 Other: Voiding Method Urinal # Voids 2 - Exam GENERAL EXAM: Alert, pleasant 65-year-old gentleman on 15 L high flow nasal cannula, comfortable in no apparent distress. HEAD: Normocephalic. EYES: Normal reaction of pupils, equal size. NOSE: Clear with pink turbinates. THROAT: No erythema or exudates. NECK: No masses, no JVD. CHEST: No chest wall deformity. LUNGS: Equal air entry with faint crackles in the posterior bases. CVS: S1 and S2 normal with no audible murmur, regular rhythm. ABDOMEN: No hepatosplenomegaly, normal bowel sounds, no guarding or rigidity. SPINE: No scoliosis or deformity SKIN: No rashes CENTRAL NERVOUS SYSTEM: No focal deficits, tone is normal in all 4 extremities. EXTREMITIES: There is no peripheral edema. No clubbing, no cyanosis. Perip heral pulses are intact. - Labs CBC & Chem 7: 07/13/21 07:13 07/13/21 07:13 Labs: Abnormal Lab Results - Last 24 Hours (Table) 07/12/21 07/12/21 07/13/21 Range/Units 16:11 20:07 07:10 WBC (4.50-10.00) X 10*3/uL Immature Gran # (0.00-0.04) X 10*3/uL Neutrophils # (1.80-7.70) X 10*3/uL Eosinophils # (0.04-0.35) X 10*3/uL D-Dimer (<0.60) mg/L FEU Carbon Dioxide (20.0-27.5) mmol/L BUN/Creatinine Ratio (12.00-20.00) Ratio Glucose (70-110) mg/dL POC Glucose (mg/dL) 270 H 270 H 125 H (75-99) mg/dL Lactate Dehydrogenase (120-246) U/L C-Reactive Protein (0.00-0.80) mg/dL Total Protein (6.2-8.2) g/dL Albumin (3.8-4.9) g/dL Albumin/Globulin Ratio (1.60-3.17) g/dL 07/13/21 07/13/21 07/13/21 Range/Units 07:13 07:13 07:13 WBC 13.63 H (4.50-10.00) X 10*3/uL Immature Gran # 0.08 H (0.00-0.04) X 10*3/uL Neutrophils # 11.91 H (1.80-7.70) X 10*3/uL Eosinophils # 0 L (0.04-0.35) X 10*3/uL D-Dimer 0.86 H (<0.60) mg/L FEU Carbon Dioxide 18.8 L (20.0-27.5) mmol/L BUN/Creatinine Ratio 26.97 H (12.00-20.00) Ratio Glucose 138 H (70-110) mg/dL POC Glucose (mg/dL) (75-99) mg/dL Lactate Dehydrogenase 430 H (120-246) U/L C-Reactive Protein 1.50 H (0.00-0.80) mg/dL Total Protein 5.6 L (6.2-8.2) g/dL Albumin 3.1 L (3.8-4.9) g/dL Albumin/Globulin Ratio 1.24 L (1.60-3.17) g/dL 07/13/21 Range/Units 11:34 WBC (4.50-10.00) X 10*3/uL Immature Gran # (0.00-0.04) X 10*3/uL Neutrophils # (1.80-7.70) X 10*3/uL Eosinophils # (0.04-0.35) X 10*3/uL D-Dimer (<0.60) mg/L FEU Carbon Dioxide (20.0-27.5) mmol/L BUN/Creatinine Ratio (12.00-20.00) Ratio Glucose (70-110) mg/dL POC Glucose (mg/dL) 255 H (75-99) mg/dL Lactate Dehydrogenase (120-246) U/L C-Reactive Protein (0.00-0.80) mg/dL Total Protein (6.2-8.2) g/dL Albumin (3.8-4.9) g/dL Albumin/Globulin Ratio (1.60-3.17) g/dL Assessment and Plan Assessment: 1 Acute hypoxemic respiratory failure secondary to coronavirus associated pneumonia. Outside the window for Remdesivir. 2 Elevated inflammatory markers, secondary to coronavirus infection. 3 No evidence of pulmonary embolism on CT angiogram. 4 History of hypothyroidism. 5 History of gastroesophageal reflux disease. 6 History of diabetes mellitus. 7 History of hypertension. 8 History of diverticular disease. 9 Prior history of bariatric surgery for obesity. 10 History of prior tobacco use. Plan: The patient was seen and evaluated today Currently stable from the pulmonary standpoint On 15 L, titrate as tolerated Continue Decadron, Lovenox, vitamin supplements We will continue to follow I, the cosigning physician, performed a history & physical examination of the patient. Lungs sounds with faint crackles in the posterior. Maintaining good O2 saturations in the 90s on 15 L/m per nasal cannula. I discussed the assessment and plan of care with my nurse practitioner, Tosin Espana. I attest to the above note as dictated by her.
[2021-07-13 16:39] LABS: Glucose,Whole Blood 239 mg/dL (75-99)
--- NOTE | 2021-07-13 16:39 | P.PN ---
Subjective This is a pleasant 65 years old male with past medical history of diabetes mellitus, hypertension, GERD, hypothyroidism. Presents with respiratory symptoms secondary to call with infection and acute hypoxic respiratory failure Patient is lying in bed and breathing quietly however he still on 15 L/m of oxygen S pain. No diarrhea and he has decent appetite. Labs reviewed showing improving down d-dimer at 0.8. Trending down LDH at 4:30 and CRP at 1.5. He has leukocytosis of 13.6 K while he is on dexamethasone. Also he is on normal saline at 75 mL/h, multiple vitamins and he is on home dose of metformin 500 mg as well as Protonix and Lovenox repeat chest x-ray today showing bilateral pneumonia with no change Objective - Vital Signs Vital signs: Vital Signs Temp 97.4 F L 07/13/21 09:07 Pulse 68 07/13/21 09:07 Resp 19 07/13/21 09:07 BP 119/69 07/13/21 09:07 Pulse Ox 92 L 07/13/21 09:07 Intake & Output 07/12/21 07/13/21 07/13/21 18:59 06:59 18:59 Intake Total 300 600 Output Total 1000 Balance -1000 300 600 Intake: Intake, IV Titration 600 Amount Sodium Chloride 0.9% 1, 600 000 ml @ 75 mls/hr IV . [id number] [facility] Rx#:[id number] Oral 300 Output: Urine 1000 Other: Voiding Method Urinal # Voids 2 - Exam GENERAL: The patient is alert and oriented x3, not in any acute distress. Well developed, well nourished. HEENT: Pupils are round and equally reacting to light. EOMI. No scleral icterus. No conjunctival pallor. Normocephalic, atraumatic. No pharyngeal erythema. No thyromegaly. CARDIOVASCULAR: S1 and S2 present. No murmurs, rubs, or gallops. PULMONARY: Chest is clear to auscultation, no wheezing or crackles. ABDOMEN: Soft, nontender, nondistended, normoactive bowel sounds. No palpable organomegaly. MUSCULOSKELETAL: No joint swelling or deformity. EXTREMITIES: No cyanosis, clubbing, or pedal edema. NEUROLOGICAL: Gross neurological examination did not reveal any focal deficits. SKIN: No rashes. no petechiae. - Labs CBC & Chem 7: 07/13/21 07:13 07/13/21 07:13 Labs: Abnormal Lab Results - Last 24 Hours (Table) 07/12/21 07/12/21 07/13/21 Range/Units 16:11 20:07 07:10 WBC (4.50-10.00) X 10*3/uL Immature Gran # (0.00-0.04) X 10*3/uL Neutrophils # (1.80-7.70) X 10*3/uL Eosinophils # (0.04-0.35) X 10*3/uL D-Dimer (<0.60) mg/L FEU Carbon Dioxide (20.0-27.5) mmol/L BUN/Creatinine Ratio (12.00-20.00) Ratio Glucose (70-110) mg/dL POC Glucose (mg/dL) 270 H 270 H 125 H (75-99) mg/dL Lactate Dehydrogenase (120-246) U/L C-Reactive Protein (0.00-0.80) mg/dL Total Protein (6.2-8.2) g/dL Albumin (3.8-4.9) g/dL Albumin/Globulin Ratio (1.60-3.17) g/dL 07/13/21 07/13/21 07/13/21 Range/Units 07:13 07:13 07:13 WBC 13.63 H (4.50-10.00) X 10*3/uL Immature Gran # 0.08 H (0.00-0.04) X 10*3/uL Neutrophils # 11.91 H (1.80-7.70) X 10*3/uL Eosinophils # 0 L (0.04-0.35) X 10*3/uL D-Dimer 0.86 H (<0.60) mg/L FEU Carbon Dioxide 18.8 L (20.0-27.5) mmol/L BUN/Creatinine Ratio 26.97 H (12.00-20.00) Ratio Glucose 138 H (70-110) mg/dL POC Glucose (mg/dL) (75-99) mg/dL Lactate Dehydrogenase 430 H (120-246) U/L C-Reactive Protein 1.50 H (0.00-0.80) mg/dL Total Protein 5.6 L (6.2-8.2) g/dL Albumin 3.1 L (3.8-4.9) g/dL Albumin/Globulin Ratio 1.24 L (1.60-3.17) g/dL 07/13/21 Range/Units 11:34 WBC (4.50-10.00) X 10*3/uL Immature Gran # (0.00-0.04) X 10*3/uL Neutrophils # (1.80-7.70) X 10*3/uL Eosinophils # (0.04-0.35) X 10*3/uL D-Dimer (<0.60) mg/L FEU Carbon Dioxide (20.0-27.5) mmol/L BUN/Creatinine Ratio (12.00-20.00) Ratio Glucose (70-110) mg/dL POC Glucose (mg/dL) 255 H (75-99) mg/dL Lactate Dehydrogenase (120-246) U/L C-Reactive Protein (0.00-0.80) mg/dL Total Protein (6.2-8.2) g/dL Albumin (3.8-4.9) g/dL Albumin/Globulin Ratio (1.60-3.17) g/dL Assessment and Plan Assessment: Bilateral Covid pneumonia Acute hypoxic respiratory failure Increased inflammatory markers Plan: This is a pleasant 65 years old male who presents with bilateral covid pneumonia Continue with dexamethasone Continue with vitamin C, vitamin D and zinc Pulmonary consult Labs and medication were reviewed.. Continue same treatment. Continue with symptomatic treatment. Resume home medication. Monitor lytes and vitals. DVT and GI prophylaxis. Further recommendationsas per clinical course of the patient DVT prophylaxis: Subcutaneous heparin GI Prophylaxis: Pepcid PT/OT: Pending Prognosis is guarded
--- NOTE | 2021-07-13 18:50 | PN ---
PROGRESS NOTE DATE OF SERVICE: 07/13/2021 REASON FOR FOLLOWUP: COVID-19 pneumonia. INTERVAL HISTORY: The patient is afebrile. The patient is still complaining of shortness of breath on minimal exertion. The patient denies having any chest pain. He did have a cough and bringing up some sputum. No purulence. No nausea, no vomiting. No abdominal pain or diarrhea. PHYSICAL EXAMINATION: Blood pressure 123/74 with a pulse of 63, temperature 97.3. He is 90% on 15 L high- flow oxygen. General description is a middle-aged male lying in bed in no distress. Respiratory system: Unlabored breathing. Coarse breath sounds bilaterally. No wheeze. Heart S1, S2. Regular rate and rhythm. Abdomen soft, no tenderness. LABS: White count 13.63. D-dimer is 0.86, creatinine 0.9. DIAGNOSTIC IMPRESSION AND PLAN: Patient with acute respiratory failure secondary to COVID-19 pneumonia. Chest x-ray did not show any significant change. Respiratory status remains critical. Patient to continue dexamethasone, Lovenox, zinc and ascorbic acid along with respiratory support. Monitor clinical course closely. MMODL / IJN: [id number] /
[2021-07-13] MEDS: DULoxetine HCL 20 MG CAPSULE.DR PO SCH (20:39)
[2021-07-13] MEDS: ENOXAPARIN 40 MG/0.4 ML SYRINGE SQ SCH (20:39)
[2021-07-13 20:44] LABS: Glucose,Whole Blood 308 mg/dL (75-99)
[2021-07-14] MEDS: LEVOTHYROXINE 100 MCG TAB PO SCH (06:01)
[2021-07-14 06:59] LABS: Glucose,Whole Blood 118 mg/dL (75-99)
[2021-07-14] MEDS: INSULIN ASPART (NovoLOG) 100 UNIT/ML VIAL SQ SCH ×4 (07:18→21:57)
[2021-07-14] MEDS: MULTIVITAMINS, THERA 1 EACH TAB PO SCH ×2 (07:43→21:58)
[2021-07-14] MEDS: MECLIZINE 12.5 MG TAB PO SCH ×3 (07:43→22:41)
[2021-07-14] MEDS: buPROPion 75 MG TAB PO SCH (07:43)
[2021-07-14] MEDS: CHOLECALCIFEROL 25 MCG (1000 IU) TABLET PO SCH (07:43)
[2021-07-14] MEDS: LORATADINE 10 MG TAB PO SCH (07:43)
[2021-07-14] MEDS: DEXAMETHASONE SOD PHOSPHATE 10 MG/ML 1 ML VIAL IVP SCH (07:43)
[2021-07-14] MEDS: ZINC SULFATE 220 MG CAP PO SCH (07:43)
[2021-07-14] MEDS: GABAPENTIN 400 MG CAP PO SCH ×3 (07:43→21:56)
[2021-07-14] MEDS: ASCORBIC ACID 500 MG TAB PO SCH (07:44)
[2021-07-14] MEDS: PANTOPRAZOLE 40 MG TABLET PO SCH (07:44)
[2021-07-14] MEDS: metFORMIN 500 MG TAB PO SCH (07:44)
[2021-07-14] MEDS: lisinopriL 10 MG TAB PO SCH (07:44)
[2021-07-14] MEDS: FLUTICASONE 50MCG/SPRAY NASAL 16GM EA NOSTRIL SCH (07:44)
[2021-07-14] MEDS: FERROUS SULFATE 325 MG TAB PO SCH (07:44)
[2021-07-14 11:14] LABS: Glucose,Whole Blood 161 mg/dL (75-99)
--- NOTE | 2021-07-14 13:53 | P.PN ---
Subjective Progress Note Date: 07/14/21 Principal diagnosis: Dyspnea, cough, hypoxia On 07/14/2021 patient seen in follow-up on medical surgical floor, is currently in 15 L of oxygen with a pulse ox of 96%, and the nurse states that she was going to start weaning his oxygen but she does not have a flowmeter right now but will allow her slow titration. We'll inquire with the respiratory therapy for different flowmeter. Otherwise patient is breathing comfortably, no acute distress, no fever or chills, vital signs have been stable. Yesterday's chest x-ray continues to show bilateral multifocal and confluent opacities without significant change compared to prior exam. Current medications include IV Decadron 6 blood gram daily, Lovenox 40 mg daily, multivitamins, yesterday's labs have been reviewed, showing white blood cell count of 13.6, improving d- dimer which was down to 0.86, electrolytes and renal profile were unremarkable, and LDH was down to 430, and CRP was also improving and was down to 1.5, pro calcitonin level was negative at 0.08. Objective - Vital Signs Vital signs: Vital Signs Temp 98.0 F 07/14/21 09:03 Pulse 71 07/14/21 09:03 Resp 17 07/14/21 09:03 BP 117/76 07/14/21 09:03 Pulse Ox 96 07/14/21 09:03 Intake & Output 07/13/21 07/14/21 07/14/21 18:59 06:59 18:59 Intake Total 600 500 20 Output Total 1125 Balance 600 -625 20 Intake: Intake, IV Titration 600 20 Amount Sodium Chloride 0.9% 1, 600 20 000 ml @ 75 mls/hr IV . [id number] [facility] Rx#:[id number] Oral 500 Output: Urine 1125 Other: Voiding Method Urinal # Voids 2 # Bowel Movements 0 - Exam GENERAL EXAM: Alert, very pleasant, 65-year-old, white male, currently on 15 L of oxygen with a pulse ox of 93% comfortable in no apparent distress. HEAD: Normocephalic/atraumatic. EYES: Normal reaction of pupils, equal size. Conjunctiva pink, sclera white. NOSE: Clear with pink turbinates. THROAT: No erythema or exudates. NECK: No masses, no JVD, no thyroid enlargement, no adenopathy. CHEST: No chest wall deformity. Symmetrical expansion. LUNGS: Equal air entry with basilar crackles CVS: Regular rate and rhythm, normal S1 and S2, no gallops, no murmurs, no rubs ABDOMEN: Soft, nontender. No hepatosplenomegaly, normal bowel sounds, no guarding or rigidity. EXTREMITIES: No clubbing, no edema, no cyanosis, 2+ pulses and upper and lower extremities. MUSCULOSKELETAL: Muscle strength and tone normal. SPINE: No scoliosis or deformity SKIN: No rashes CENTRAL NERVOUS SYSTEM: Alert and oriented -3. No focal deficits, tone is normal in all 4 extremities. PSYCHIATRIC: Alert and oriented -3. Appropriate affect. Intact judgment and insight. - Labs CBC & Chem 7: 07/13/21 07:13 07/13/21 07:13 Labs: Abnormal Lab Results - Last 24 Hours (Table) 07/13/21 07/13/21 07/14/21 Range/Units 16:36 20:34 06:57 POC Glucose (mg/dL) 239 H 308 H 118 H (75-99) mg/dL 07/14/21 Range/Units 11:12 POC Glucose (mg/dL) 161 H (75-99) mg/dL Assessment and Plan Plan: Assessment: #1. Acute hypoxic respiratory failure secondary to COVID-19 associated pneumonia, patient presented to the emergency department on 07/10/2021, and his initial onset of symptoms was 06/30/2021, patient was outside the window for Remdesivir, he is not vaccinated against COVID-19. Currently he is on 15 L of oxygen, he remains on Decadron, Lovenox some multivitamins, #2. Increased inflammatory markers related to the above, improving #3. Slightly elevated d-dimer, without CT evidence of pulmonary embolism #4. History of hypothyroidism #5. History of GERD #6. History of diabetes mellitus type 2 #7. Hypertension #8. History of diverticular disease #9. History of bariatric surgery for obesity #10. Prior history of tobacco use Plan: Oxygen flowmeter will be switched to a different flowmeter to be able to wean FiO2 No worsening dyspnea, wean FiO2 to keep O2 sats ration is at or above 90% Inflammatory markers are improving His cough is improving Continue Decadron, Lovenox and vitamins Obtain lower extremity Dopplers We'll continue to follow I performed a history & physical examination of the patient and discussed their management with my nurse practitioner, Uma Bess. I reviewed the nurse practitioner's note and agree with the documented findings and plan of care. Mae ng sounds are positive for diffuse crackles throughout the lung gil. The findings and the impression was discussed with the patient. I attest to the documentation by the nurse practitioner. Time with Patient: Less than 30
--- NOTE | 2021-07-14 16:16 | US ---
EXAMINATION TYPE: US venous doppler duplex LE DATE OF EXAM: 07/14/2021 3:37 PM COMPARISON: NONE CLINICAL HISTORY: elevated d-dimer. Exam done portable on covid patient SIDE PERFORMED: Bilateral TECHNIQUE: The lower extremity deep venous system is examined utilizing real time linear array sonog ben with graded compression, doppler sonography and color-flow sonography. VESSELS IMAGED: Common Femoral Vein Deep Femoral Vein Greater Saphenous Vein * Femoral Vein Popliteal Vein Small Saphenous Vein * Proximal Calf Veins (* superficial vessels) Right Leg: Appears negative for DVT Left Leg: Appears negative for DVT IMPRESSION: No evidence of deep vein thrombosis in both legs.
[2021-07-14 16:56] LABS: Glucose,Whole Blood 299 mg/dL (75-99)
[2021-07-14 20:10] LABS: Glucose,Whole Blood 224 mg/dL (75-99)
--- NOTE | 2021-07-14 20:34 | P.PN ---
Subjective This is a pleasant 65 years old male with past medical history of diabetes mellitus, hypertension, GERD, hypothyroidism. Presents with respiratory symptoms secondary to call with infection and acute hypoxic respiratory failure Patient is lying in bed and breathing quietly however he still on 15 L/m of oxygen S pain. No diarrhea and he has decent appetite. Labs reviewed showing improving down d-dimer at 0.8. Trending down LDH at 4:30 and CRP at 1.5. He has leukocytosis of 13.6 K while he is on dexamethasone. Also he is on normal saline at 75 mL/h, multiple vitamins and he is on home dose of metformin 500 mg as well as Protonix and Lovenox repeat chest x-ray today showing bilateral pneumonia with no change 07/14/2021 Patient awake and alert, still have some tachypnea at rest were his pain in his bed most of the time. No worsening dyspnea. No significant caput. No chest pain. Hemodynamically stable. His oxygen requirements dropped from 15 down to 13 L/m today. No labs from today. Her meds on dexamethasone, vitamin C, D and zinc Doppler of the lower extremity is negative for DVT He is eating 100% of his diet. His IV fluids were discontinued without Objective - Vital Signs Vital signs: Vital Signs Temp 98.0 F 07/14/21 09:03 Pulse 71 07/14/21 09:03 Resp 17 07/14/21 09:03 BP 117/76 07/14/21 09:03 Pulse Ox 96 07/14/21 09:03 Intake & Output 07/13/21 07/14/21 07/14/21 18:59 06:59 18:59 Intake Total 600 500 20 Output Total 1125 Balance 600 -625 20 Intake: Intake, IV Titration 600 20 Amount Sodium Chloride 0.9% 1, 600 20 000 ml @ 75 mls/hr IV . [id number] [facility] Rx#:[id number] Oral 500 Output: Urine 1125 Other: Voiding Method Urinal # Voids 2 # Bowel Movements 0 - Exam GENERAL: The patient is alert and oriented x3, not in any acute distress. Well developed, well nourished. HEENT: Pupils are round and equally reacting to light. EOMI. No scleral icterus. No conjunctival pallor. Normocephalic, atraumatic. No pharyngeal erythema. No thyromegaly. CARDIOVASCULAR: S1 and S2 present. No murmurs, rubs, or gallops. PULMONARY: Chest is clear to auscultation, no wheezing or crackles. ABDOMEN: Soft, nontender, nondistended, normoactive bowel sounds. No palpable organomegaly. MUSCULOSKELETAL: No joint swelling or deformity. EXTREMITIES: No cyanosis, clubbing, or pedal edema. NEUROLOGICAL: Gross neurological examination did not reveal any focal deficits. SKIN: No rashes. no petechiae. - Labs CBC & Chem 7: 07/13/21 07:13 07/13/21 07:13 Labs: Abnormal Lab Results - Last 24 Hours (Table) 07/13/21 07/13/21 07/13/21 Range/Units 07:13 07:13 11:34 WBC 13.63 H (4.50-10.00) X 10*3/uL Immature Gran # 0.08 H (0.00-0.04) X 10*3/uL Neutrophils # 11.91 H (1.80-7.70) X 10*3/uL Eosinophils # 0 L (0.04-0.35) X 10*3/uL Carbon Dioxide 18.8 L (20.0-27.5) mmol/L BUN/Creatinine Ratio 26.97 H (12.00-20.00) Ratio Glucose 138 H (70-110) mg/dL POC Glucose (mg/dL) 255 H (75-99) mg/dL Lactate Dehydrogenase 430 H (120-246) U/L C-Reactive Protein 1.50 H (0.00-0.80) mg/dL Total Protein 5.6 L (6.2-8.2) g/dL Albumin 3.1 L (3.8-4.9) g/dL Albumin/Globulin Ratio 1.24 L (1.60-3.17) g/dL 07/13/21 07/13/21 07/14/21 Range/Units 16:36 20:34 06:57 WBC (4.50-10.00) X 10*3/uL Immature Gran # (0.00-0.04) X 10*3/uL Neutrophils # (1.80-7.70) X 10*3/uL Eosinophils # (0.04-0.35) X 10*3/uL Carbon Dioxide (20.0-27.5) mmol/L BUN/Creatinine Ratio (12.00-20.00) Ratio Glucose (70-110) mg/dL POC Glucose (mg/dL) 239 H 308 H 118 H (75-99) mg/dL Lactate Dehydrogenase (120-246) U/L C-Reactive Protein (0.00-0.80) mg/dL Total Protein (6.2-8.2) g/dL Albumin (3.8-4.9) g/dL Albumin/Globulin Ratio (1.60-3.17) g/dL Assessment and Plan Assessment: Bilateral Covid pneumonia Acute hypoxic respiratory failure Increased inflammatory markers Plan: This is a pleasant 65 years old male who presents with bilateral covid pneumonia Continue with dexamethasone Continue with vitamin C, vitamin D and zinc Pulmonary consult Labs and medication were reviewed.. Continue same treatment. Continue with sym ptomatic treatment. Resume home medication. Monitor lytes and vitals. DVT and GI prophylaxis. Further recommendationsas per clinical course of the patient DVT prophylaxis: Subcutaneous heparin GI Prophylaxis: Pepcid PT/OT: Pending Prognosis is guarded
[2021-07-14] MEDS: ENOXAPARIN 40 MG/0.4 ML SYRINGE SQ SCH (21:57)
[2021-07-14] MEDS: DULoxetine HCL 20 MG CAPSULE.DR PO SCH (22:41)
--- NOTE | 2021-07-15 05:33 | PN ---
PROGRESS NOTE DATE OF SERVICE: 07/14/2021 REASON FOR FOLLOWUP: COVID-19 pneumonia. INTERVAL HISTORY: The patient is afebrile and breathing slightly comfortably. He is down to 13 L high- flow nasal exam. The patient denies any chest pain. Did have a cough with sputum production. No purulence. No nausea, no vomiting. No abdominal pain. No diarrhea. PHYSICAL EXAMINATION: Blood pressure 131/73 with a pulse of 65, temperature of 98.5. He is 95% on 13 L high flow oxygen. General description is a middle-aged male lying in bed in no distress. Respiratory system: Unlabored breathing, decreased intensity in breath sounds, with no wheeze. Heart S1, S2. Regular rate and rhythm. Abdomen soft, no tenderness. LABS: No new labs have been obtained today. DIAGNOSTIC IMPRESSION AND PLAN: This patient admitted to the hospital with acute respiratory failure secondary to COVID- 19 pneumonia in this patient whose condition remains to be critical. The patient did have minimal clinical improvement. Patient to continue dexamethasone, Lovenox, zinc and ascorbic acid along with respiratory support. Monitor clinical course closely. MMODL / IJN: [id number] /
[2021-07-15] MEDS: LEVOTHYROXINE 100 MCG TAB PO SCH (06:17)
[2021-07-15 07:12] LABS: Glucose,Whole Blood 116 mg/dL (75-99)
[2021-07-15] MEDS: INSULIN ASPART (NovoLOG) 100 UNIT/ML VIAL SQ SCH ×4 (07:59→20:30)
[2021-07-15] MEDS: FERROUS SULFATE 325 MG TAB PO SCH (08:08)
[2021-07-15] MEDS: MECLIZINE 12.5 MG TAB PO SCH ×4 (08:08→21:06)
[2021-07-15] MEDS: DEXAMETHASONE SOD PHOSPHATE 10 MG/ML 1 ML VIAL IVP SCH (08:08)
[2021-07-15] MEDS: lisinopriL 10 MG TAB PO SCH (08:08)
[2021-07-15] MEDS: MULTIVITAMINS, THERA 1 EACH TAB PO SCH ×2 (08:08→20:31)
[2021-07-15] MEDS: LORATADINE 10 MG TAB PO SCH (08:08)
[2021-07-15] MEDS: GABAPENTIN 400 MG CAP PO SCH ×4 (08:08→21:06)
[2021-07-15] MEDS: CHOLECALCIFEROL 25 MCG (1000 IU) TABLET PO SCH (08:08)
[2021-07-15] MEDS: ZINC SULFATE 220 MG CAP PO SCH (08:08)
[2021-07-15] MEDS: ASCORBIC ACID 500 MG TAB PO SCH (08:09)
[2021-07-15] MEDS: FLUTICASONE 50MCG/SPRAY NASAL 16GM EA NOSTRIL SCH (08:09)
[2021-07-15] MEDS: buPROPion 75 MG TAB PO SCH (08:09)
[2021-07-15] MEDS: metFORMIN 500 MG TAB PO SCH (08:09)
[2021-07-15] MEDS: PANTOPRAZOLE 40 MG TABLET PO SCH (08:09)
[2021-07-15 12:01] LABS: Glucose,Whole Blood 212 mg/dL (75-99)
--- NOTE | 2021-07-15 16:30 | P.PN ---
Subjective Progress Note Date: 07/15/21 Principal diagnosis: Dyspnea, cough, hypoxia On 07/14/2021 patient seen in follow-up on medical surgical floor, is currently in 15 L of oxygen with a pulse ox of 96%, and the nurse states that she was going to start weaning his oxygen but she does not have a flowmeter right now but will allow her slow titration. We'll inquire with the respiratory therapy for different flowmeter. Otherwise patient is breathing comfortably, no acute distress, no fever or chills, vital signs have been stable. Yesterday's chest x-ray continues to show bilateral multifocal and confluent opacities without significant change compared to prior exam. Current medications include IV Decadron 6 blood gram daily, Lovenox 40 mg daily, multivitamins, yesterday's labs have been reviewed, showing white blood cell count of 13.6, improving d- dimer which was down to 0.86, electrolytes and renal profile were unremarkable, and LDH was down to 430, and CRP was also improving and was down to 1.5, pro calcitonin level was negative at 0.08. On 07/15/2021 patient seen in follow-up on medical surgical floor. Breathing comfortably, resting comfortably in bed, on 13 L of oxygen his pulse ox was 96%, and subsequently FiO2 has been dropped down to 11 L, breathing remains stable. No acute events overnight, no worsening dyspnea, no cough, no chest pain, he did remains on Decadron 6 mg daily, he is on COVID-19 multi-vitamins, and he is on Lovenox 40 mg daily. Lower extremity Dopplers were completed showing no evidence of DVT. Today's labs have been reviewed. No nausea, no vomiting, or abdominal pain Objective - Vital Signs Vital signs: Vital Signs Temp 98.3 F 07/15/21 14:00 Pulse 78 07/15/21 14:00 Resp 20 07/15/21 14:00 BP 128/54 07/15/21 14:00 Pulse Ox 93 L 07/15/21 14:00 Intake & Output 07/14/21 07/15/21 07/15/21 18:59 06:59 18:59 Intake Total 20 Output Total 1100 Balance 20 -1100 Intake: Intake, IV Titration 20 Amount Sodium Chloride 0.9% 1, 20 000 ml @ 75 mls/hr IV . [id number] [facility] Rx#:[id number] Output: Urine 1100 Other: Voiding Method Urinal # Voids 1 2 # Bowel Movements 0 - Exam GENERAL EXAM: Alert, very pleasant, 65-year-old, white male, currently on 15 L of oxygen with a pulse ox of 93% comfortable in no apparent distress. HEAD: Normocephalic/atraumatic. EYES: Normal reaction of pupils, equal size. Conjunctiva pink, sclera white. NOSE: Clear with pink turbinates. THROAT: No erythema or exudates. NECK: No masses, no JVD, no thyroid enlargement, no adenopathy. CHEST: No chest wall deformity. Symmetrical expansion. LUNGS: Equal air entry with basilar crackles CVS: Regular rate and rhythm, normal S1 and S2, no gallops, no murmurs, no rubs ABDOMEN: Soft, nontender. No hepatosplenomegaly, normal bowel sounds, no guarding or rigidity. EXTREMITIES: No clubbing, no edema, no cyanosis, 2+ pulses and upper and lower extremities. MUSCULOSKELETAL: Muscle strength and tone normal. SPINE: No scoliosis or deformity SKIN: No rashes CENTRAL NERVOUS SYSTEM: Alert and oriented -3. No focal deficits, tone is normal in all 4 extremities. PSYCHIATRIC: Alert and oriented -3. Appropriate affect. Intact judgment and insight. - Labs CBC & Chem 7: 07/13/21 07:13 07/13/21 07:13 Labs: Abnormal Lab Results - Last 24 Hours (Table) 07/14/21 07/14/21 07/15/21 Range/Units 16:50 20:08 07:10 POC Glucose (mg/dL) 299 H 224 H 116 H (75-99) mg/dL 07/15/21 Range/Units 11:59 POC Glucose (mg/dL) 212 H (75-99) mg/dL Assessment and Plan Plan: Assessment: #1. Acute hypoxic respiratory failure secondary to COVID-19 associated pneumonia, patient presented to the emergency department on 07/10/2021, and his initial onset of symptoms was 06/30/2021, patient was outside the window for Remdesivir, he is not vaccinated against COVID-19. Currently he is on 15 L of oxygen, he remains on Decadron, Lovenox some multivitamins, #2. Increased inflammatory markers related to the above, improving #3. Slightly elevated d-dimer, without CT evidence of pulmonary embolism #4. History of hypothyroidism #5. History of GERD #6. History of diabetes mellitus type 2 #7. Hypertension #8. History of diverticular disease #9. History of bariatric surgery for obesity #10. Prior history of tobacco use Plan: No worsening dyspnea, wean FiO2 to keep O2 sats at or above 90% His cough is improving Continue Decadron, Lovenox and vitamins Lower extremity dopplers were negative We'll continue to follow I performed a history & physical examination of the patient and discussed their management with my nurse practitioner, Uma Bess. I reviewed the nurse practitioner's note and agree with the documented findings and plan of care. Lung sounds are positive for diffuse crackles throughout the lung gil. The findings and the impression was discussed with the patient. I attest to the documentation by the nurse practitioner. Time with Patient: Less than 30
[2021-07-15 17:02] LABS: Glucose,Whole Blood 355 mg/dL (75-99)
[2021-07-15 20:28] LABS: Glucose,Whole Blood 273 mg/dL (75-99)
[2021-07-15] MEDS: DULoxetine HCL 20 MG CAPSULE.DR PO SCH (20:31)
[2021-07-15] MEDS: ENOXAPARIN 40 MG/0.4 ML SYRINGE SQ SCH (20:31)
--- NOTE | 2021-07-15 20:40 | P.PN ---
Subjective This is a pleasant 65 years old male with past medical history of diabetes mellitus, hypertension, GERD, hypothyroidism. Presents with respiratory symptoms secondary to call with infection and acute hypoxic respiratory failure Patient is lying in bed and breathing quietly however he still on 15 L/m of oxygen S pain. No diarrhea and he has decent appetite. Labs reviewed showing improving down d-dimer at 0.8. Trending down LDH at 4:30 and CRP at 1.5. He has leukocytosis of 13.6 K while he is on dexamethasone. Also he is on normal saline at 75 mL/h, multiple vitamins and he is on home dose of metformin 500 mg as well as Protonix and Lovenox repeat chest x-ray today showing bilateral pneumonia with no change 07/14/2021 Patient awake and alert, still have some tachypnea at rest were his pain in his bed most of the time. No worsening dyspnea. No significant caput. No chest pain. Hemodynamically stable. His oxygen requirements dropped from 15 down to 13 L/m today. No labs from today. Her meds on dexamethasone, vitamin C, D and zinc Doppler of the lower extremity is negative for DVT He is eating 100% of his diet. His IV fluids were discontinued without 07/15/2021 His culprit infection is improving and he required less oxygen and today went down to 11 L/m compared to 15 L/m 2 days ago. He has minimal respiratory symptoms. No diarrhea and good appetite. His glucose is elevated and her required 20 units of extra NovoLog today. He is Currently on metformin home dose of 500 mg because of this we are going to increase his Levemir to 10 units at bedside and continue with insulin sliding scale. Ultrasound of the leg is negative for DVT. He recommends on dexamethasone and multiple vitamins. IV fluids were stopped Objective - Vital Signs Vital signs: Vital Signs Temp 98.3 F 07/15/21 10:00 Pulse 60 07/15/21 10:00 Resp 19 07/15/21 10:00 BP 119/65 07/15/21 10:00 Pulse Ox 96 07/15/21 10:00 Intake & Output 07/14/21 07/15/21 07/15/21 18:59 06:59 18:59 Intake Total 20 Output Total 1100 Balance 20 -1100 Intake: Intake, IV Titration 20 Amount Sodium Chloride 0.9% 1, 20 000 ml @ 75 mls/hr IV . [id number] [facility] Rx#:[id number] Output: Urine 1100 Other: Voiding Method Urinal # Voids 1 2 # Bowel Movements 0 - Exam GENERAL: The patient is alert and oriented x3, not in any acute distress. Well developed, well nourished. HEENT: Pupils are round and equally reacting to light. EOMI. No scleral icterus. No conjunctival pallor. Normocephalic, atraumatic. No pharyngeal erythema. No thyromegaly. CARDIOVASCULAR: S1 and S2 present. No murmurs, rubs, or gallops. PULMONARY: Chest is clear to auscultation, no wheezing or crackles. ABDOMEN: Soft, nontender, nondistended, normoactive bowel sounds. No palpable organomegaly. MUSCULOSKELETAL: No joint swelling or deformity. EXTREMITIES: No cyanosis, clubbing, or pedal edema. NEUROLOGICAL: Gross neurological examination did not reveal any focal deficits. SKIN: No rashes. no petechiae. - Labs CBC & Chem 7: 07/13/21 07:13 07/13/21 07:13 Labs: Abnormal Lab Results - Last 24 Hours (Table) 07/14/21 07/14/21 07/15/21 Range/Units 16:50 20:08 07:10 POC Glucose (mg/dL) 299 H 224 H 116 H (75-99) mg/dL 07/15/21 Range/Units 11:59 POC Glucose (mg/dL) 212 H (75-99) mg/dL Assessment and Plan Assessment: Bilateral Covid pneumonia Acute hypoxic respiratory failure Increased inflammatory markers Plan: This is a pleasant 65 years old male who presents with bilateral covid pneumonia Continue with dexamethasone Continue with vitamin C, vitamin D and zinc Pulmonary consult Continue with metformin and Levemir Labs and medication were reviewed.. Continue same treatment. Continue with symptomatic treatment. Resume home medication. Monitor lytes and vitals. DVT and GI prophylaxis. Further recommendations as per clinical course of the patient DVT prophylaxis: Subcutaneous heparin GI Prophylaxis: Pepcid PT/OT: Pending Prognosis is guarded
[2021-07-15] MEDS: INSULIN DETEMIR (LEVEMIR) 100 UNIT/ML SYR SQ SCH (21:06)
--- NOTE | 2021-07-15 22:46 | PN ---
PROGRESS NOTE DATE OF SERVICE: 07/15/2021. REASON FOR FOLLOWUP: COVID-19 pneumonia. INTERVAL HISTORY: Patient is afebrile. The patient is currently breathing slightly comfortably. He is down to 11 L nasal cannula. The patient denies any chest pain. No worsening cough or sputum production. No abdominal pain. No diarrhea. PHYSICAL EXAMINATION: Blood pressure 130/75 with a pulse of 78, temperature 97.9. He is 94% on 11 L nasal cannula. General description is a middle-aged male lying in bed in no distress. Respiratory system: Unlabored breathing, coarse breath sounds bilaterally with no wheeze. Heart S1, S2. Regular rate and rhythm. Abdomen soft, no tenderness. LABS: No new labs have been obtained today. DIAGNOSTIC IMPRESSION/PLAN: Patient with acute respiratory failure secondary to Covid 19 pneumonia in this patient with minimal clinical improvement to continue Dexamethasone, Lovenox, zinc and ascorbic acid along with respiratory support. Monitor clinical course closely. MMODL / IJN: [id number] /
[2021-07-16] MEDS: LEVOTHYROXINE 100 MCG TAB PO SCH (05:58)
[2021-07-16 06:59] LABS: Glucose,Whole Blood 165 mg/dL (75-99)
[2021-07-16] MEDS: CHOLECALCIFEROL 25 MCG (1000 IU) TABLET PO SCH (07:25)
[2021-07-16] MEDS: PANTOPRAZOLE 40 MG TABLET PO SCH (07:25)
[2021-07-16] MEDS: MULTIVITAMINS, THERA 1 EACH TAB PO SCH ×2 (07:25→20:45)
[2021-07-16] MEDS: GABAPENTIN 400 MG CAP PO SCH ×3 (07:25→20:45)
[2021-07-16] MEDS: FERROUS SULFATE 325 MG TAB PO SCH (07:25)
[2021-07-16] MEDS: LORATADINE 10 MG TAB PO SCH (07:25)
[2021-07-16] MEDS: metFORMIN 500 MG TAB PO SCH (07:26)
[2021-07-16] MEDS: lisinopriL 10 MG TAB PO SCH (07:26)
[2021-07-16] MEDS: ZINC SULFATE 220 MG CAP PO SCH (07:26)
[2021-07-16] MEDS: ASCORBIC ACID 500 MG TAB PO SCH (07:26)
[2021-07-16] MEDS: buPROPion 75 MG TAB PO SCH (07:27)
[2021-07-16] MEDS: MECLIZINE 12.5 MG TAB PO SCH ×3 (07:27→20:45)
[2021-07-16] MEDS: DEXAMETHASONE SOD PHOSPHATE 10 MG/ML 1 ML VIAL IVP SCH (07:27)
[2021-07-16] MEDS: INSULIN ASPART (NovoLOG) 100 UNIT/ML VIAL SQ SCH ×4 (07:28→20:44)
[2021-07-16] MEDS: FLUTICASONE 50MCG/SPRAY NASAL 16GM EA NOSTRIL SCH (07:29)
[2021-07-16] MEDS ORDERED: SALINE NASAL GEL 14.1 GM TUBE NASAL PRN (08:48)
--- NOTE | 2021-07-16 10:41 | P.PN ---
Subjective This is a pleasant 65 years old male with past medical history of diabetes mellitus, hypertension, GERD, hypothyroidism. Presents with respiratory symptoms secondary to call with infection and acute hypoxic respiratory failure Patient is lying in bed and breathing quietly however he still on 15 L/m of oxygen S pain. No diarrhea and he has decent appetite. Labs reviewed showing improving down d-dimer at 0.8. Trending down LDH at 4:30 and CRP at 1.5. He has leukocytosis of 13.6 K while he is on dexamethasone. Also he is on normal saline at 75 mL/h, multiple vitamins and he is on home dose of metformin 500 mg as well as Protonix and Lovenox repeat chest x-ray today showing bilateral pneumonia with no change 07/14/2021 Patient awake and alert, still have some tachypnea at rest were his pain in his bed most of the time. No worsening dyspnea. No significant caput. No chest pain. Hemodynamically stable. His oxygen requirements dropped from 15 down to 13 L/m today. No labs from today. Her meds on dexamethasone, vitamin C, D and zinc Doppler of the lower extremity is negative for DVT He is eating 100% of his diet. His IV fluids were discontinued without 07/15/2021 His culprit infection is improving and he required less oxygen and today went down to 11 L/m compared to 15 L/m 2 days ago. He has minimal respiratory symptoms. No diarrhea and good appetite. His glucose is elevated and her required 20 units of extra NovoLog today. He is Currently on metformin home dose of 500 mg because of this we are going to increase his Levemir to 10 units at bedside and continue with insulin sliding scale. Ultrasound of the leg is negative for DVT. He recommends on dexamethasone and multiple vitamins. IV fluids were stopped 07/16/2021 pt respiratory status is improving, yesterday he was on 15 L/m of oxygen went down to 13 and then 11 L at evening but this morning is at 13 L/m which is a still improving but slowly. A states that he has good appetite, no significant coughing. Yesterday we added Levemir 10 units to his home regimen of metformin 500 mg and his glucose is better this morning. Patient does not have glucometer at home therefore we consulted outpatient case manager to provide one upon discharge. Dexamethasone, vitamin C, D and zinc. Objective - Vital Signs Vital signs: Vital Signs Temp 97.7 F 07/16/21 05:59 Pulse 58 L 07/16/21 07:15 Resp 18 07/16/21 05:59 BP 104/58 07/16/21 05:59 Pulse Ox 90 L 07/16/21 05:59 Intake & Output 07/15/21 07/16/21 07/16/21 18:59 06:59 18:59 Output Total 500 Balance -500 Output: Urine 500 Other: Voiding Method Urinal # Voids 2 - Exam GENERAL: The patient is alert and oriented x3, not in any acute distress. Well developed, well nourished. HEENT: Pupils are round and equally reacting to light. EOMI. No scleral icterus. No conjunctival pallor. Normocephalic, atraumatic. No pharyngeal erythema. No thyromegaly. CARDIOVASCULAR: S1 and S2 present. No murmurs, rubs, or gallops. PULMONARY: Chest is clear to auscultation, no wheezing or crackles. ABDOMEN: Soft, nontender, nondistended, normoactive bowel sounds. No palpable organomegaly. MUSCULOSKELETAL: No joint swelling or deformity. EXTREMITIES: No cyanosis, clubbing, or pedal edema. NEUROLOGICAL: Gross neurological examination did not reveal any focal deficits. SKIN: No rashes. no petechiae. - Labs CBC & Chem 7: 07/13/21 07:13 07/13/21 07:13 Labs: Abnormal Lab Results - Last 24 Hours (Table) 07/15/21 07/15/21 07/15/21 Range/Units 11:59 17:00 20:27 POC Glucose (mg/dL) 212 H 355 H 273 H (75-99) mg/dL 07/16/21 Range/Units 06:58 POC Glucose (mg/dL) 165 H (75-99) mg/dL Assessment and Plan Assessment: Bilateral Covid pneumonia Acute hypoxic respiratory failure Increased inflammatory markers Plan: This is a pleasant 65 years old male who presents with bilateral covid pneumonia Continue with dexamethasone Continue with vitamin C, vitamin D and zinc Pulmonary consult Continue with metformin and Levemir Labs and medication were reviewed.. Continue same treatment. Continue with symptomatic treatment. Resume home medication. Monitor lytes and vitals. DVT and GI prophylaxis. Further recommendations as per clinical course of the patient DVT prophylaxis: Subcutaneous heparin GI Prophylaxis: Pepcid PT/OT: Pending Prognosis is guarded
[2021-07-16 11:56] LABS: Glucose,Whole Blood 206 mg/dL (75-99)
[2021-07-16 13:13] VITALS: BMI 36.9
--- NOTE | 2021-07-16 15:46 | P.PN ---
Subjective Progress Note Date: 07/16/21 Principal diagnosis: Dyspnea, cough, hypoxia On 07/14/2021 patient seen in follow-up on medical surgical floor, is currently in 15 L of oxygen with a pulse ox of 96%, and the nurse states that she was going to start weaning his oxygen but she does not have a flowmeter right now but will allow her slow titration. We'll inquire with the respiratory therapy for different flowmeter. Otherwise patient is breathing comfortably, no acute distress, no fever or chills, vital signs have been stable. Yesterday's chest x-ray continues to show bilateral multifocal and confluent opacities without significant change compared to prior exam. Current medications include IV Decadron 6 blood gram daily, Lovenox 40 mg daily, multivitamins, yesterday's labs have been reviewed, showing white blood cell count of 13.6, improving d- dimer which was down to 0.86, electrolytes and renal profile were unremarkable, and LDH was down to 430, and CRP was also improving and was down to 1.5, pro calcitonin level was negative at 0.08. On 07/15/2021 patient seen in follow-up on medical surgical floor. Breathing comfortably, resting comfortably in bed, on 13 L of oxygen his pulse ox was 96%, and subsequently FiO2 has been dropped down to 11 L, breathing remains stable. No acute events overnight, no worsening dyspnea, no cough, no chest pain, he did remains on Decadron 6 mg daily, he is on COVID-19 multi-vitamins, and he is on Lovenox 40 mg daily. Lower extremity Dopplers were completed showing no evidence of DVT. Today's labs have been reviewed. No nausea, no vomiting, or abdominal pain On 07/16/2021 patient seen in follow-up on medical surgical floor. Patient is currently on 11 L of oxygen, his pulse ox is 91-92%, doesn't appear to be in any acute distress, afebrile, hemodynamically is stable, denies worsening dyspnea, no chest discomfort. He slowly improving. No nausea vomiting diarrhea, appetite is fair, no significant coughing. Remains on Decadron 6 mg daily, he is on multivitamins in the form of vitamin D, vitamin C, and zinc. Remains on Lovenox 40 mg. Today's labs are still pending. No acute events overnight. His inflammatory markers were improving the labs from a few days ago. Repeat d- dimer and inflammatory markers are still pending. Objective - Vital Signs Vital signs: Vital Signs Temp 98.0 F 07/16/21 14:00 Pulse 77 07/16/21 14:00 Resp 19 07/16/21 14:00 BP 107/58 07/16/21 14:00 Pulse Ox 92 L 07/16/21 14:00 Intake & Output 07/15/21 07/16/21 07/16/21 18:59 06:59 18:59 Output Total 500 Balance -500 Weight 145.15 kg Output: Urine 500 Other: Voiding Method Urinal # Voids 2 - Exam GENERAL EXAM: Alert, very pleasant, 65-year-old, white male, currently on 11 L of oxygen with a pulse ox of 93% comfortable in no apparent distress. HEAD: Normocephalic/atraumatic. EYES: Normal reaction of pupils, equal size. Conjunctiva pink, sclera white. NOSE: Clear with pink turbinates. THROAT: No erythema or exudates. NECK: No masses, no JVD, no thyroid enlargement, no adenopathy. CHEST: No chest wall deformity. Symmetrical expansion. LUNGS: Equal air entry with basilar crackles CVS: Regular rate and rhythm, normal S1 and S2, no gallops, no murmurs, no rubs ABDOMEN: Soft, nontender. No hepatosplenomegaly, normal bowel sounds, no guarding or rigidity. EXTREMITIES: No clubbing, no edema, no cyanosis, 2+ pulses and upper and lower extremities. MUSCULOSKELETAL: Muscle strength and tone normal. SPINE: No scoliosis or deformity SKIN: No rashes CENTRAL NERVOUS SYSTEM: Alert and oriented -3. No focal deficits, tone is normal in all 4 extremities. PSYCHIATRIC: Alert and oriented -3. Appropriate affect. Intact judgment and insight. - Labs CBC & Chem 7: 07/13/21 07:13 07/13/21 07:13 Labs: Abnormal Lab Results - Last 24 Hours (Table) 07/15/21 07/15/21 07/16/21 Range/Units 17:00 20:27 06:58 POC Glucose (mg/dL) 355 H 273 H 165 H (75-99) mg/dL 07/16/21 Range/Units 11:55 POC Glucose (mg/dL) 206 H (75-99) mg/dL Assessment and Plan Plan: Assessment: #1. Acute hypoxic respiratory failure secondary to COVID-19 associated pneu cathi, patient presented to the emergency department on 07/10/2021, and his initial onset of symptoms was 06/30/2021, patient was outside the window for Remdesivir, he is not vaccinated against COVID-19. Currently he is down to 11 L of oxygen, he remains on Decadron, Lovenox some multivitamins, #2. Increased inflammatory markers related to the above, improving #3. Slightly elevated d-dimer, without CT evidence of pulmonary embolism #4. History of hypothyroidism #5. History of GERD #6. History of diabetes mellitus type 2 #7. Hypertension #8. History of diverticular disease #9. History of bariatric surgery for obesity #10. Prior history of tobacco use Plan: Patient continues to slowly improve Continue weaning FiO2 to keep O2 sats at or above 90% Vital signs are stable His cough is improving Continue Decadron, Lovenox and vitamins Lower extremity dopplers were negative We'll continue to follow I performed a history & physical examination of the patient and discussed their management with my nurse practitioner, Uma Bess. I reviewed the nurse practitioner's note and agree with the documented findings and plan of care. Lung sounds are positive for diffuse crackles throughout the lung gil. The findings and the impression was discussed with the patient. I attest to the documentation by the nurse practitioner. Time with Patient: Less than 30
[2021-07-16 16:55] LABS: Glucose,Whole Blood 299 mg/dL (75-99)
[2021-07-16] MEDS ORDERED: SODIUM CHLORIDE 0.65% NASAL SPRAY 44 ML BTL NASAL PRN (17:25)
[2021-07-16 19:39] LABS: Glucose,Whole Blood 280 mg/dL (75-99)
--- NOTE | 2021-07-16 19:50 | PN ---
PROGRESS NOTE DATE OF SERVICE: 07/16/2021 REASON FOR FOLLOWUP VISIT: Covid-19 pneumonia. INTERVAL HISTORY: The patient is afebrile. Has been complaining of a plugged nose and unable to breathe through the nose. The patient denies having any chest pain. No worsening cough or sputum production. No abdominal pain and no diarrhea. PHYSICAL EXAMINATION: Blood pressure 114/73 with a pulse of 78, temperature 98.2. He is 94% on 11 L high- flow oxygen. General description is a middle-aged male lying in bed in no distress. Respiratory system: Unlabored breathing, decreased intensity of breath sounds, no wheeze. Heart S1, S2. Regular rate and rhythm. Abdomen soft, no tenderness. LABS: No new labs have been obtained today. DIAGNOSTIC IMPRESSION AND PLAN: Patient with acute Covid-19 pneumonia with minimal clinical improving. Patient to continue with Decadron, Lovenox, zinc and ascorbic acid along with respiratory support and monitor clinical course closely. MMODL / IJN: [id number] /
[2021-07-16] MEDS: INSULIN DETEMIR (LEVEMIR) 100 UNIT/ML SYR SQ SCH (20:44)
[2021-07-16] MEDS: ENOXAPARIN 40 MG/0.4 ML SYRINGE SQ SCH (20:45)
[2021-07-16] MEDS: DULoxetine HCL 20 MG CAPSULE.DR PO SCH (20:45)
[2021-07-17] MEDS: LEVOTHYROXINE 100 MCG TAB PO SCH (05:56)
[2021-07-17 06:57] LABS: Glucose,Whole Blood 113 mg/dL (75-99)
[2021-07-17] MEDS: INSULIN ASPART (NovoLOG) 100 UNIT/ML VIAL SQ SCH ×4 (07:01→20:08)
[2021-07-17] MEDS: FERROUS SULFATE 325 MG TAB PO SCH (07:09)
[2021-07-17] MEDS: MULTIVITAMINS, THERA 1 EACH TAB PO SCH ×2 (07:10→20:08)
[2021-07-17] MEDS: lisinopriL 10 MG TAB PO SCH (07:10)
[2021-07-17] MEDS: metFORMIN 500 MG TAB PO SCH (07:10)
[2021-07-17] MEDS: GABAPENTIN 400 MG CAP PO SCH ×3 (07:10→20:08)
[2021-07-17] MEDS: PANTOPRAZOLE 40 MG TABLET PO SCH (07:10)
[2021-07-17] MEDS: ZINC SULFATE 220 MG CAP PO SCH (07:11)
[2021-07-17] MEDS: LORATADINE 10 MG TAB PO SCH (07:11)
[2021-07-17] MEDS: ASCORBIC ACID 500 MG TAB PO SCH (07:11)
[2021-07-17] MEDS: CHOLECALCIFEROL 25 MCG (1000 IU) TABLET PO SCH (07:11)
[2021-07-17] MEDS: buPROPion 75 MG TAB PO SCH (07:12)
[2021-07-17] MEDS: DEXAMETHASONE SOD PHOSPHATE 10 MG/ML 1 ML VIAL IVP SCH (07:12)
[2021-07-17] MEDS: MECLIZINE 12.5 MG TAB PO SCH ×3 (07:13→20:08)
[2021-07-17] MEDS: FLUTICASONE 50MCG/SPRAY NASAL 16GM EA NOSTRIL SCH (07:13)
--- NOTE | 2021-07-17 08:29 | XR ---
EXAMINATION TYPE: XR chest 1V portable DATE OF EXAM: 07/17/2021 COMPARISON: Chest x-ray 07/13/2021 HISTORY: Shortness of breath TECHNIQUE: Single frontal view of the chest is obtained. FINDINGS: Bilateral predominantly peripheral airspace disease is present within the lungs. There is no evident pneumothorax or pleural effusion. Cardiac mediastinal silhouette shows a similar appearanc e. There are overlying artifacts. Right hemidiaphragm is elevated. IMPRESSION: Correlate for Covid 19 pneumonia
[2021-07-17 10:43] LABS: Basophils # (A) 0.03 X 10*3/uL (0.00-0.10); Basophils % (A) 0.3 %; Eosinophils # (A) 0.16 X 10*3/uL (0.04-0.35); Eosinophils % (A) 1.6 %; HCT 43.2 % (39.6-50.0); Lymphocytes # (A) 1.25 X 10*3/uL (0.90-5.00); Lymphocytes % (A) 12.4 %; MCH 27.7 pg (27.0-32.0); MCHC 32.4 g/dL (32.0-37.0); MCV 85.4 fL (80.0-97.0); Mean Platelet Volume 9.9 fL (9.5-12.2); Monocytes # (A) 0.61 X 10*3/uL (0.20-1.00); Neutrophils # (A) 7.83 X 10*3/uL (1.80-7.70); Neutrophils % (A) 77.6 %; Platelet Count 261 X 10*3/uL (140-440); RBC 5.06 X 10*6/uL (4.40-5.60); RDW 12.4 % (11.5-14.5); WBC 10.09 X 10*3/uL (4.50-10.00)
[2021-07-17 10:57] LABS: African American GFR (CKD) 112.8 (60.0-200.0); Albumin/Globulin Ratio 1.1 (1.60-3.17); Anion Gap 10.3 mmol/L (10.00-18.00); BUN/Creat Ratio 32.28 Ratio (12.00-20.00); Blood Urea Nitrogen 24.4 mg/dL (9.0-27.0); C Reactive Protein 7.1 mg/dL (0.00-0.80); Calcium 9.1 mg/dL (8.7-10.3); Carbon Dioxide 25.7 mmol/L (20.0-27.5); Globulin 2.7 g/dL (1.6-3.3); Non-African American GFR(CKD) 97.3 (60.0-200.0); Potassium 4.6 mmol/L (3.5-5.5); Total Bilirubin 0.3 mg/dL (0.30-1.20); Total Protein 5.7 g/dL (6.2-8.2)
[2021-07-17 11:26] LABS: Glucose,Whole Blood 313 mg/dL (75-99)
--- NOTE | 2021-07-17 12:42 | P.PN ---
Subjective This is a pleasant 65 years old male with past medical history of diabetes mellitus, hypertension, GERD, hypothyroidism. Presents with respiratory symptoms secondary to call with infection and acute hypoxic respiratory failure Patient is lying in bed and breathing quietly however he still on 15 L/m of oxygen S pain. No diarrhea and he has decent appetite. Labs reviewed showing improving down d-dimer at 0.8. Trending down LDH at 4:30 and CRP at 1.5. He has leukocytosis of 13.6 K while he is on dexamethasone. Also he is on normal saline at 75 mL/h, multiple vitamins and he is on home dose of metformin 500 mg as well as Protonix and Lovenox repeat chest x-ray today showing bilateral pneumonia with no change 07/14/2021 Patient awake and alert, still have some tachypnea at rest were his pain in his bed most of the time. No worsening dyspnea. No significant caput. No chest pain. Hemodynamically stable. His oxygen requirements dropped from 15 down to 13 L/m today. No labs from today. Her meds on dexamethasone, vitamin C, D and zinc Doppler of the lower extremity is negative for DVT He is eating 100% of his diet. His IV fluids were discontinued without 07/15/2021 His culprit infection is improving and he required less oxygen and today went down to 11 L/m compared to 15 L/m 2 days ago. He has minimal respiratory symptoms. No diarrhea and good appetite. His glucose is elevated and her required 20 units of extra NovoLog today. He is Currently on metformin home dose of 500 mg because of this we are going to increase his Levemir to 10 units at bedside and continue with insulin sliding scale. Ultrasound of the leg is negative for DVT. He recommends on dexamethasone and multiple vitamins. IV fluids were stopped 07/16/2021 pt respiratory status is improving, yesterday he was on 15 L/m of oxygen went down to 13 and then 11 L at evening but this morning is at 13 L/m which is a still improving but slowly. A states that he has good appetite, no significant coughing. Yesterday we added Levemir 10 units to his home regimen of metformin 500 mg and his glucose is better this morning. Patient does not have glucometer at home therefore we consulted keycase assembler to provide one upon discharge. Dexamethasone, vitamin C, D and zinc. 07/17/2021 Patient awake and alert sitting up in bed, not respiratory distress, his oxygen requirements improving down to 10-11 L/m. His d-dimer is 2.9, LDH is 295 and CRP 7.1. WBC close to normal at 10.0. Chest x-ray showed persistent bilateral: Pneumonia. He remains on dexamethasone, multiple vitamins IV fluid was discontinued. Levemir increased to 15 L at bedtime Objective - Vital Signs Vital signs: Vital Signs Temp 97.8 F 07/17/21 09:14 Pulse 71 07/17/21 09:14 Resp 17 07/17/21 09:14 BP 106/63 07/17/21 09:14 Pulse Ox 90 L 07/17/21 09:14 Intake & Output 07/16/21 07/17/21 07/17/21 18:59 06:59 18:59 Intake Total 240 Output Total 750 Balance -750 240 Weight 145.15 kg Intake: Oral 240 Output: Urine 750 Other: Voiding Method Urinal Urinal Urinal - Exam GENERAL: The patient is alert and oriented x3, not in any acute distress. Well developed, well nourished. HEENT: Pupils are round and equally reacting to light. EOMI. No scleral icterus. No conjunctival pallor. Normocephalic, atraumatic. No pharyngeal erythema. No thyromegaly. CARDIOVASCULAR: S1 and S2 present. No murmurs, rubs, or gallops. PULMONARY: Chest is clear to auscultation, no wheezing or crackles. ABDOMEN: Soft, nontender, nondistended, normoactive bowel sounds. No palpable organomegaly. MUSCULOSKELETAL: No joint swelling or deformity. EXTREMITIES: No cyanosis, clubbing, or pedal edema. NEUROLOGICAL: Gross neurological examination did not reveal any focal deficits. SKIN: No rashes. no petechiae. - Labs CBC & Chem 7: 07/17/21 06:39 07/17/21 06:39 Labs: Abnormal Lab Results - Last 24 Hours (Table) 07/16/21 07/16/21 07/16/21 Range/Units 11:55 16:50 19:38 WBC (4.50-10.00) X 10*3/uL Immature Gran # (0.00-0.04) X 10*3/uL Neutrophils # (1.80-7.70) X 10*3/uL D-Dimer (<0.60) mg/L FEU POC Glucose (mg/dL) 206 H 299 H 280 H (75-99) mg/dL 07/17/21 07/17/21 07/17/21 Range/Units 06:39 06:39 06:53 WBC 10.09 H (4.50-10.00) X 10*3/uL Immature Gran # 0.21 H (0.00-0.04) X 10*3/uL Neutrophils # 7.83 H (1.80-7.70) X 10*3/uL D-Dimer 2.90 H (<0.60) mg/L FEU POC Glucose (mg/dL) 113 H (75-99) mg/dL Assessment and Plan Assessment: Bilateral Covid pneumonia Acute hypoxic respiratory failure Increased inflammatory markers Plan: This is a pleasant 65 years old male who presents with bilateral covid pneumonia Continue with dexamethasone Continue with vitamin C, vitamin D and zinc Pulmonary consult Continue with metformin and Levemir Labs and medication were reviewed.. Continue same treatment. Continue with symptomatic treatment. Resume home medication. Monitor lytes and vitals. DVT and GI prophylaxis. Further recommendations as per clinical course of the patient DVT prophylaxis: Subcutaneous heparin GI Prophylaxis: Pepcid PT/OT: Pending Prognosis is guarded
[2021-07-17 16:26] LABS: Glucose,Whole Blood 313 mg/dL (75-99)
--- NOTE | 2021-07-17 17:55 | P.PN ---
Subjective Progress Note Date: 07/17/21 Principal diagnosis: Dyspnea, cough, hypoxia On 07/14/2021 patient seen in follow-up on medical surgical floor, is currently in 15 L of oxygen with a pulse ox of 96%, and the nurse states that she was going to start weaning his oxygen but she does not have a flowmeter right now but will allow her slow titration. We'll inquire with the respiratory therapy for different flowmeter. Otherwise patient is breathing comfortably, no acute distress, no fever or chills, vital signs have been stable. Yesterday's chest x-ray continues to show bilateral multifocal and confluent opacities without significant change compared to prior exam. Current medications include IV Decadron 6 blood gram daily, Lovenox 40 mg daily, multivitamins, yesterday's labs have been reviewed, showing white blood cell count of 13.6, improving d- dimer which was down to 0.86, electrolytes and renal profile were unremarkable, and LDH was down to 430, and CRP was also improving and was down to 1.5, pro calcitonin level was negative at 0.08. On 07/15/2021 patient seen in follow-up on medical surgical floor. Breathing comfortably, resting comfortably in bed, on 13 L of oxygen his pulse ox was 96%, and subsequently FiO2 has been dropped down to 11 L, breathing remains stable. No acute events overnight, no worsening dyspnea, no cough, no chest pain, he did remains on Decadron 6 mg daily, he is on COVID-19 multi-vitamins, and he is on Lovenox 40 mg daily. Lower extremity Dopplers were completed showing no evidence of DVT. Today's labs have been reviewed. No nausea, no vomiting, or abdominal pain On 07/16/2021 patient seen in follow-up on medical surgical floor. Patient is currently on 11 L of oxygen, his pulse ox is 91-92%, doesn't appear to be in any acute distress, afebrile, hemodynamically is stable, denies worsening dyspnea, no chest discomfort. He slowly improving. No nausea vomiting diarrhea, appetite is fair, no significant coughing. Remains on Decadron 6 mg daily, he is on multivitamins in the form of vitamin D, vitamin C, and zinc. Remains on Lovenox 40 mg. Today's labs are still pending. No acute events overnight. His inflammatory markers were improving the labs from a few days ago. Repeat d- dimer and inflammatory markers are still pending. On 07/17/2021 patient seen in follow-up on medical surgical floor. Is resting comfortably in bed, is currently down to 7 L of oxygen, breathing easier, he is awake and alert, sitting up in bed, today's labs have been reviewed, his d-dimer is 2.9, LDH is 295, serum potassium is 7.1. Chest x-ray showing persistent bilateral pneumonia. White blood cell count is improving and is down to 10.09, hemoglobin is 14, d-dimer is 2.2, electrolytes and renal profile were unremarkable. Objective - Vital Signs Vital signs: Vital Signs Temp 97.8 F 07/17/21 13:27 Pulse 64 07/17/21 13:27 Resp 18 07/17/21 13:27 BP 117/63 07/17/21 13:27 Pulse Ox 94 L 07/17/21 13:27 Intake & Output 07/16/21 07/17/21 07/17/21 18:59 06:59 18:59 Intake Total 240 Output Total 750 300 Balance -750 240 -300 Weight 145.15 kg Intake: Oral 240 Output: Urine 750 300 Other: Voiding Method Urinal Urinal Urinal - Exam GENERAL EXAM: Alert, very pleasant, 65-year-old, white male, currently on 7 L of oxygen with a pulse ox of 94% comfortable in no apparent distress. HEAD: Normocephalic/atraumatic. EYES: Normal reaction of pupils, equal size. Conjunctiva pink, sclera white. NOSE: Clear with pink turbinates. THROAT: No erythema or exudates. NECK: No masses, no JVD, no thyroid enlargement, no adenopathy. CHEST: No chest wall deformity. Symmetrical expansion. LUNGS: Equal air entry with basilar crackles CVS: Regular rate and rhythm, normal S1 and S2, no gallops, no murmurs, no rubs ABDOMEN: Soft, nontender. No hepatosplenomegaly, normal bowel sounds, no guarding or rigidity. EXTREMITIES: No clubbing, no edema, no cyanosis, 2+ pulses and upper and lower extremities. MUSCULOSKELETAL: Muscle strength and tone normal. SPINE: No scoliosis or deformity SKIN: No rashes CENTRAL NERVOUS SYSTEM: Alert and oriented -3. No focal deficits, tone is normal in all 4 extremities. PSYCHIATRIC: Alert and oriented -3. Appropriate affect. Intact judgment and insight. - Labs CBC & Chem 7: 07/17/21 06:39 07/17/21 06:39 Labs: Abnormal Lab Results - Last 24 Hours (Table) 07/16/21 07/17/21 07/17/21 Range/Units 19:38 06:39 06:39 WBC 10.09 H (4.50-10.00) X 10*3/uL Immature Gran # 0.21 H (0.00-0.04) X 10*3/uL Neutrophils # 7.83 H (1.80-7.70) X 10*3/uL D-Dimer 2.90 H (<0.60) mg/L FEU BUN/Creatinine Ratio (12.00-20.00) Ratio Glucose (70-110) mg/dL POC Glucose (mg/dL) 280 H (75-99) mg/dL Lactate Dehydrogenase (120-246) U/L C-Reactive Protein (0.00-0.80) mg/dL Total Protein (6.2-8.2) g/dL Albumin (3.8-4.9) g/dL Albumin/Globulin Ratio (1.60-3.17) g/dL 07/17/21 07/17/21 07/17/21 Range/Units 06:39 06:53 11:24 WBC (4.50-10.00) X 10*3/uL Immature Gran # (0.00-0.04) X 10*3/uL Neutrophils # (1.80-7.70) X 10*3/uL D-Dimer (<0.60) mg/L FEU BUN/Creatinine Ratio 32.28 H (12.00-20.00) Ratio Glucose 121 H (70-110) mg/dL POC Glucose (mg/dL) 113 H 313 H (75-99) mg/dL Lactate Dehydrogenase 295 H (120-246) U/L C-Reactive Protein 7.10 H (0.00-0.80) mg/dL Total Protein 5.7 L (6.2-8.2) g/dL Albumin 3.0 L (3.8-4.9) g/dL Albumin/Globulin Ratio 1.10 L (1.60-3.17) g/dL 07/17/21 Range/Units 16:25 WBC (4.50-10.00) X 10*3/uL Immature Gran # (0.00-0.04) X 10*3/uL Neutrophils # (1.80-7.70) X 10*3/uL D-Dimer (<0.60) mg/L FEU BUN/Creatinine Ratio (12.00-20.00) Ratio Glucose (70-110) mg/dL POC Glucose (mg/dL) 313 H (75-99) mg/dL Lactate Dehydrogenase (120-246) U/L C-Reactive Protein (0.00-0.80) mg/dL Total Protein (6.2-8.2) g/dL Albumin (3.8-4.9) g/dL Albumin/Globulin Ratio (1.60-3.17) g/dL Assessment and Plan Plan: Assessment: #1. Acute hypoxic respiratory failure secondary to COVID-19 associated pneumon ia, patient presented to the emergency department on 07/10/2021, and his initial onset of symptoms was 06/30/2021, patient was outside the window for Remdesivir, he is not vaccinated against COVID-19. Currently he is down to 11 L of oxygen, he remains on Decadron, Lovenox some multivitamins, #2. Increased inflammatory markers related to the above, improving #3. Slightly elevated d-dimer, without CT evidence of pulmonary embolism #4. History of hypothyroidism #5. History of GERD #6. History of diabetes mellitus type 2 #7. Hypertension #8. History of diverticular disease #9. History of bariatric surgery for obesity #10. Prior history of tobacco use Plan: Patient continues to slowly improve Continue weaning FiO2 to keep O2 sats at or above 90% Currently down 7 L Continue weaning FiO2 Continue current medical treatment Continue Decadron, Lovenox and vitamins Lower extremity dopplers were negative Patient is down to 5 L of supplemental oxygen remains stable may consider discharge home in the next 24-48 hours We'll continue to follow I performed a history & physical examination of the patient and discussed their management with my nurse practitioner, Uma Bess. I reviewed the nurse practitioner's note and agree with the documented findings and plan of care. Lung sounds are positive for diffuse crackles throughout the lung gil. The findings and the impression was discussed with the patient. I attest to the documentation by the nurse practitioner. Time with Patient: Less than 30
[2021-07-17 20:01] LABS: Glucose,Whole Blood 270 mg/dL (75-99)
[2021-07-17] MEDS: INSULIN DETEMIR (LEVEMIR) 100 UNIT/ML SYR SQ SCH (20:07)
[2021-07-17] MEDS: ENOXAPARIN 40 MG/0.4 ML SYRINGE SQ SCH (20:08)
[2021-07-17] MEDS: DULoxetine HCL 20 MG CAPSULE.DR PO SCH (20:08)
[2021-07-17] MEDS: ONDANSETRON 4 MG/2 ML VIAL IVP PRN (21:45)
--- NOTE | 2021-07-17 23:08 | PN ---
PROGRESS NOTE DATE OF SERVICE: 07/17/2021 REASON FOR FOLLOWUP: COVID-19 pneumonia. INTERVAL HISTORY: The patient is afebrile. The patient is breathing slightly comfortably. He is down to 7 L nasal cannula. The patient denies having any chest pain or worsening cough or sputum production. No abdominal pain or diarrhea. PHYSICAL EXAMINATION: Blood pressure 125/78 with a pulse of 63, temperature 98.1. He is 92% on 7 L nasal cannula. General description is a middle-aged male lying in bed in no distress. Respiratory system: Unlabored breathing, decreased intensity of breath sounds. No wheeze. Heart S1, S2. Regular rate and rhythm. Abdomen soft, no tenderness. LABS: Hemoglobin is 14, white count 10.09, creatinine 0.8. DIAGNOSTIC IMPRESSION AND PLAN: Patient with acute respiratory failure secondary to COVID-19 pneumonia in this patient with slow clinical improvement, as the patient is requiring less supplemental oxygen. Patient to continue Decadron, Lovenox, zinc and ascorbic acid along with respiratory support and monitor his clinical course closely. MMODL / IJN: [id number] /
[2021-07-18] MEDS: LEVOTHYROXINE 100 MCG TAB PO SCH (05:44)
[2021-07-18 07:29] LABS: Glucose,Whole Blood 119 mg/dL (75-99)
[2021-07-18] MEDS: INSULIN ASPART (NovoLOG) 100 UNIT/ML VIAL SQ SCH ×4 (09:26→20:56)
[2021-07-18] MEDS: metFORMIN 500 MG TAB PO SCH (10:38)
[2021-07-18] MEDS: CHOLECALCIFEROL 25 MCG (1000 IU) TABLET PO SCH (10:38)
[2021-07-18] MEDS: FERROUS SULFATE 325 MG TAB PO SCH (10:38)
[2021-07-18] MEDS: GABAPENTIN 400 MG CAP PO SCH ×3 (10:38→20:56)
[2021-07-18] MEDS: PANTOPRAZOLE 40 MG TABLET PO SCH (10:39)
[2021-07-18] MEDS: ZINC SULFATE 220 MG CAP PO SCH (10:39)
[2021-07-18] MEDS: LORATADINE 10 MG TAB PO SCH (10:39)
[2021-07-18] MEDS: MULTIVITAMINS, THERA 1 EACH TAB PO SCH ×2 (10:39→20:57)
[2021-07-18] MEDS: DEXAMETHASONE SOD PHOSPHATE 10 MG/ML 1 ML VIAL IVP SCH (10:39)
[2021-07-18] MEDS: ASCORBIC ACID 500 MG TAB PO SCH (10:39)
[2021-07-18] MEDS: lisinopriL 10 MG TAB PO SCH (10:39)
[2021-07-18] MEDS: buPROPion 75 MG TAB PO SCH (10:40)
[2021-07-18] MEDS: MECLIZINE 12.5 MG TAB PO SCH ×3 (10:40→21:19)
[2021-07-18 12:06] LABS: Glucose,Whole Blood 223 mg/dL (75-99)
[2021-07-18] MEDS: FLUTICASONE 50MCG/SPRAY NASAL 16GM EA NOSTRIL SCH (12:17)
--- NOTE | 2021-07-18 12:36 | P.PN ---
Subjective This is a pleasant 65 years old male with past medical history of diabetes mellitus, hypertension, GERD, hypothyroidism. Presents with respiratory symptoms secondary to call with infection and acute hypoxic respiratory failure Patient is lying in bed and breathing quietly however he still on 15 L/m of oxygen S pain. No diarrhea and he has decent appetite. Labs reviewed showing improving down d-dimer at 0.8. Trending down LDH at 4:30 and CRP at 1.5. He has leukocytosis of 13.6 K while he is on dexamethasone. Also he is on normal saline at 75 mL/h, multiple vitamins and he is on home dose of metformin 500 mg as well as Protonix and Lovenox repeat chest x-ray today showing bilateral pneumonia with no change 07/14/2021 Patient awake and alert, still have some tachypnea at rest were his pain in his bed most of the time. No worsening dyspnea. No significant caput. No chest pain. Hemodynamically stable. His oxygen requirements dropped from 15 down to 13 L/m today. No labs from today. Her meds on dexamethasone, vitamin C, D and zinc Doppler of the lower extremity is negative for DVT He is eating 100% of his diet. His IV fluids were discontinued without 07/15/2021 His culprit infection is improving and he required less oxygen and today went down to 11 L/m compared to 15 L/m 2 days ago. He has minimal respiratory symptoms. No diarrhea and good appetite. His glucose is elevated and her required 20 units of extra NovoLog today. He is Currently on metformin home dose of 500 mg because of this we are going to increase his Levemir to 10 units at bedside and continue with insulin sliding scale. Ultrasound of the leg is negative for DVT. He recommends on dexamethasone and multiple vitamins. IV fluids were stopped 07/16/2021 pt respiratory status is improving, yesterday he was on 15 L/m of oxygen went down to 13 and then 11 L at evening but this morning is at 13 L/m which is a still improving but slowly. A states that he has good appetite, no significant coughing. Yesterday we added Levemir 10 units to his home regimen of metformin 500 mg and his glucose is better this morning. Patient does not have glucometer at home therefore we consulted case managers to provide one upon discharge. Dexamethasone, vitamin C, D and zinc. 07/17/2021 Patient awake and alert sitting up in bed, not respiratory distress, his oxygen requirements improving down to 10-11 L/m. His d-dimer is 2.9, LDH is 295 and CRP 7.1. WBC close to normal at 10.0. Chest x-ray showed persistent bilateral: Pneumonia. He remains on dexamethasone, multiple vitamins IV fluid was discontinued. Levemir increased to 15 L at bedtime 07/18/2021 This is a pleasant 65 years old male who presents with bilateral COVID Pneumonia and hypoxia. He is been treated with dexamethasone, multiple vitamins including C, D and zinc. Also his been receiving hydration therapy which is stopped now. At home he was on metformin 500 mg for his diabetes. Which is continued and Levemir added while he is on steroids for better glucose control. Pulmonary service IS following the patient very closely. Patient showed interval improvement and his oxygen requirement improved from 15 L down to 5 L today with oxygen saturation of 91%. Rest of Vitas looks stable. Last lab showing d-dimer of 2.4, LDH is 295 and CRP is 7.1. Chest x-ray was showing bilateral Covid pneumonia. He was treated with dexamethasone, vitamin C, vitamin D and zinc. Patient field board and is asking when he can be discharged however he denies any suicidal or homicidal ideation. Objective - Vital Signs Vital signs: Vital Signs Temp 97.9 F 07/18/21 06:00 Pulse 65 07/18/21 06:00 Resp 17 07/18/21 06:00 BP 114/70 07/18/21 06:00 Pulse Ox 92 L 07/18/21 08:33 Intake & Output 07/17/21 07/18/21 07/18/21 18:59 06:59 18:59 Output Total 900 Balance -900 Output: Urine 900 Other: Voiding Method Urinal # Voids 3 - Exam GENERAL: The patient is alert and oriented x3, not in any acute distress. Well developed, well nourished. HEENT: Pupils are round and equally reacting to light. EOMI. No scleral icterus. No conjunctival pallor. Normocephalic, atraumatic. No pharyngeal erythema. No thyromegaly. CARDIOVASCULAR: S1 and S2 present. No murmurs, rubs, or gallops. PULMONARY: Chest is clear to auscultation, no wheezing or crackles. ABDOMEN: Soft, nontender, nondistended, normoactive bowel sounds. No palpable organomegaly. MUSCULOSKELETAL: No joint swelling or deformity. EXTREMITIES: No cyanosis, clubbing, or pedal edema. NEUROLOGICAL: Gross neurological examination did not reveal any focal deficits. SKIN: No rashes. no petechiae. - Labs CBC & Chem 7: 07/17/21 06:39 07/17/21 06:39 Labs: Abnormal Lab Results - Last 24 Hours (Table) 07/17/21 07/17/21 07/17/21 Range/Units 06:39 06:39 11:24 WBC 10.09 H (4.50-10.00) X 10*3/uL Immature Gran # 0.21 H (0.00-0.04) X 10*3/uL Neutrophils # 7.83 H (1.80-7.70) X 10*3/uL BUN/Creatinine Ratio 32.28 H (12.00-20.00) Ratio Glucose 121 H (70-110) mg/dL POC Glucose (mg/dL) 313 H (75-99) mg/dL Lactate Dehydrogenase 295 H (120-246) U/L C-Reactive Protein 7.10 H (0.00-0.80) mg/dL Total Protein 5.7 L (6.2-8.2) g/dL Albumin 3.0 L (3.8-4.9) g/dL Albumin/Globulin Ratio 1.10 L (1.60-3.17) g/dL 07/17/21 07/17/21 07/18/21 Range/Units 16:25 20:00 07:28 WBC (4.50-10.00) X 10*3/uL Immature Gran # (0.00-0.04) X 10*3/uL Neutrophils # (1.80-7.70) X 10*3/uL BUN/Creatinine Ratio (12.00-20.00) Ratio Glucose (70-110) mg/dL POC Glucose (mg/dL) 313 H 270 H 119 H (75-99) mg/dL Lactate Dehydrogenase (120-246) U/L C-Reactive Protein (0.00-0.80) mg/dL Total Protein (6.2-8.2) g/dL Albumin (3.8-4.9) g/dL Albumin/Globulin Ratio (1.60-3.17) g/dL Assessment and Plan Assessment: Bilateral Covid pneumonia Acute hypoxic respiratory failure Increased inflammatory markers Plan: This is a pleasant 65 years old male who presents with bilateral covid pneumonia Continue with dexamethasone Continue with vitamin C, vitamin D and zinc Pulmonary consult Continue with metformin and Levemir Labs and medication were reviewed.. Continue same treatment. Continue with symptomatic treatment. Resume home medication. Monitor lytes and vitals. DVT and GI prophylaxis. Further recommendations as per clinical course of the patient DVT prophylaxis: Subcutaneous heparin GI Prophylaxis: Pepcid
[2021-07-18 16:11] LABS: Glucose,Whole Blood 273 mg/dL (75-99)
--- NOTE | 2021-07-18 17:40 | P.PN ---
Subjective Progress Note Date: 07/18/21 Principal diagnosis: Dyspnea, cough, hypoxia On 07/14/2021 patient seen in follow-up on medical surgical floor, is currently in 15 L of oxygen with a pulse ox of 96%, and the nurse states that she was going to start weaning his oxygen but she does not have a flowmeter right now but will allow her slow titration. We'll inquire with the respiratory therapy for different flowmeter. Otherwise patient is breathing comfortably, no acute distress, no fever or chills, vital signs have been stable. Yesterday's chest x-ray continues to show bilateral multifocal and confluent opacities without significant change compared to prior exam. Current medications include IV Decadron 6 blood gram daily, Lovenox 40 mg daily, multivitamins, yesterday's labs have been reviewed, showing white blood cell count of 13.6, improving d- dimer which was down to 0.86, electrolytes and renal profile were unremarkable, and LDH was down to 430, and CRP was also improving and was down to 1.5, pro calcitonin level was negative at 0.08. On 07/15/2021 patient seen in follow-up on medical surgical floor. Breathing comfortably, resting comfortably in bed, on 13 L of oxygen his pulse ox was 96%, and subsequently FiO2 has been dropped down to 11 L, breathing remains stable. No acute events overnight, no worsening dyspnea, no cough, no chest pain, he did remains on Decadron 6 mg daily, he is on COVID-19 multi-vitamins, and he is on Lovenox 40 mg daily. Lower extremity Dopplers were completed showing no evidence of DVT. Today's labs have been reviewed. No nausea, no vomiting, or abdominal pain On 07/16/2021 patient seen in follow-up on medical surgical floor. Patient is currently on 11 L of oxygen, his pulse ox is 91-92%, doesn't appear to be in any acute distress, afebrile, hemodynamically is stable, denies worsening dyspnea, no chest discomfort. He slowly improving. No nausea vomiting diarrhea, appetite is fair, no significant coughing. Remains on Decadron 6 mg daily, he is on multivitamins in the form of vitamin D, vitamin C, and zinc. Remains on Lovenox 40 mg. Today's labs are still pending. No acute events overnight. His inflammatory markers were improving the labs from a few days ago. Repeat d- dimer and inflammatory markers are still pending. On 07/17/2021 patient seen in follow-up on medical surgical floor. Is resting comfortably in bed, is currently down to 7 L of oxygen, breathing easier, he is awake and alert, sitting up in bed, today's labs have been reviewed, his d-dimer is 2.9, LDH is 295, serum potassium is 7.1. Chest x-ray showing persistent bilateral pneumonia. White blood cell count is improving and is down to 10.09, hemoglobin is 14, d-dimer is 2.2, electrolytes and renal profile were unremarkable. On 07/18/2021 patient seen in follow-up on medical surgical floor. He is resting comfortably in bed, in no acute distress, no worsening cough, patient has been ambulating to the bathroom, tolerates activity well, he is currently on 5 L of oxygen. A positive chest discomfort, no worsening cough, his vitals have been stable, his been afebrile, he is tolerating oral intake. No new labs today, his last chest x-ray from yesterday showing bilateral peripheral airspace disease stable in appearance. Objective - Vital Signs Vital signs: Vital Signs Temp 98.7 F 07/18/21 14:00 Pulse 67 07/18/21 14:00 Resp 18 07/18/21 14:00 BP 106/68 07/18/21 14:00 Pulse Ox 95 07/18/21 14:00 Intake & Output 07/17/21 07/18/21 07/18/21 18:59 06:59 18:59 Output Total 900 Balance -900 Output: Urine 900 Other: Voiding Method Urinal # Voids 3 - Exam GENERAL EXAM: Alert, very pleasant, 65-year-old, white male, currently on 7 L of oxygen with a pulse ox of 94% comfortable in no apparent distress. HEAD: Normocephalic/atraumatic. EYES: Normal reaction of pupils, equal size. Conjunctiva pink, sclera white. NOSE: Clear with pink turbinates. THROAT: No erythema or exudates. NECK: No masses, no JVD, no thyroid enlargement, no adenopathy. CHEST: No chest wall deformity. Symmetrical expansion. LUNGS: Equal air entry with basilar crackles CVS: Regular rate and rhythm, normal S1 and S2, no gallops, no murmurs, no rubs ABDOMEN: Soft, nontender. No hepatosplenomegaly, normal bowel sounds, no guarding or rigidity. EXTREMITIES: No clubbing, no edema, no cyanosis, 2+ pulses and upper and lower extremities. MUSCULOSKELETAL: Muscle strength and tone normal. SPINE: No scoliosis or deformity SKIN: No rashes CENTRAL NERVOUS SYSTEM: Alert and oriented -3. No focal deficits, tone is normal in all 4 extremities. PSYCHIATRIC: Alert and oriented -3. Appropriate affect. Intact judgment and insight. - Labs CBC & Chem 7: 07/17/21 06:39 07/17/21 06:39 Labs: Abnormal Lab Results - Last 24 Hours (Table) 07/17/21 07/18/21 07/18/21 Range/Units 20:00 07:28 12:05 POC Glucose (mg/dL) 270 H 119 H 223 H (75-99) mg/dL 07/18/21 Range/Units 16:09 POC Glucose (mg/dL) 273 H (75-99) mg/dL Assessment and Plan Plan: Assessment: #1. Acute hypoxic respiratory failure secondary to COVID-19 associated pneumonia, patient presented to the emergency department on 07/10/2021, and his initial onset of symptoms was 06/30/2021, patient was outside the window for Remdesivir, he is not vaccinated against COVID-19. Currently he is down to 11 L of oxygen, he remains on Decadron, Lovenox some multivitamins, #2. Increased inflammatory markers related to the above, improving #3. Slightly elevated d-dimer, without CT evidence of pulmonary embolism #4. History of hypothyroidism #5. History of GERD #6. History of diabetes mellitus type 2 #7. Hypertension #8. History of diverticular disease #9. History of bariatric surgery for obesity #10. Prior history of tobacco use Plan: Continue weaning FiO2, Breathing has remained stable Patient is currently at 5 L Breathing comfortably, no complaints of worsening dyspnea or cough No acute events overnight Continue current medical treatment If remains stable may consider discharge home in the next 24 hours [facility] and will [facility] available for delivery tomorrow I performed a history & physical examination of the patient and discussed their management with my nurse practitioner, Uma Bess. I reviewed the nurse practitioner's note and agree with the documented findings and plan of care. Lung sounds are positive for diffuse crackles throughout the lung gil. The findings and the impression was discussed with the patient. I attest to the documentation by the nurse practitioner. Time with Patient: Less than 30
--- NOTE | 2021-07-18 19:15 | PN ---
PROGRESS NOTE DATE OF SERVICE: 07/18/2021 REASON FOR FOLLOWUP: COVID-19 pneumonia. INTERVAL HISTORY: The patient is afebrile. The patient is breathing more comfortably. He is currently down to 5 L nasal cannula. The patient denies any chest pain. No worsening cough or sputum production. No abdominal pain, no diarrhea. PHYSICAL EXAMINATION: Blood pressure 100/68 with a pulse of 67, temperature 98.2. He is 95% on 5 L nasal cannula. General description is a middle-aged male lying in bed in no distress. Respiratory system: Unlabored breathing, decreased intensity of breath sounds, no wheeze. Heart S1, S2. Regular rate and rhythm. Abdomen: Soft, no tenderness. LABS: No new labs have been obtained today. DIAGNOSTIC PATIENT: Patient with acute respiratory failure secondary to COVID-19 pneumonia. This patient has fair clinical improvement. The patient to continue dexamethasone, Lovenox, zinc and ascorbic acid. No evidence of any secondary bacterial pneumonia, hence, no need for systemic antibiotics. MMODL / IJN: [id number] /
[2021-07-18 20:15] LABS: Glucose,Whole Blood 253 mg/dL (75-99)
[2021-07-18] MEDS: ENOXAPARIN 40 MG/0.4 ML SYRINGE SQ SCH (20:56)
[2021-07-18] MEDS: INSULIN DETEMIR (LEVEMIR) 100 UNIT/ML SYR SQ SCH (20:56)
[2021-07-18] MEDS: DULoxetine HCL 20 MG CAPSULE.DR PO SCH (21:19)
[2021-07-19] MEDS: LEVOTHYROXINE 100 MCG TAB PO SCH (05:17)
[2021-07-19 07:12] LABS: Glucose,Whole Blood 228 mg/dL (75-99)
[2021-07-19] MEDS: metFORMIN 500 MG TAB PO SCH (08:27)
[2021-07-19] MEDS: INSULIN ASPART (NovoLOG) 100 UNIT/ML VIAL SQ SCH ×3 (08:27→16:34)
[2021-07-19] MEDS: MULTIVITAMINS, THERA 1 EACH TAB PO SCH (08:28)
[2021-07-19] MEDS: CHOLECALCIFEROL 25 MCG (1000 IU) TABLET PO SCH (08:28)
[2021-07-19] MEDS: GABAPENTIN 400 MG CAP PO SCH ×2 (08:28→15:53)
[2021-07-19] MEDS: PANTOPRAZOLE 40 MG TABLET PO SCH (08:28)
[2021-07-19] MEDS: DEXAMETHASONE SOD PHOSPHATE 10 MG/ML 1 ML VIAL IVP SCH (08:28)
[2021-07-19] MEDS: lisinopriL 10 MG TAB PO SCH (08:28)
[2021-07-19] MEDS: LORATADINE 10 MG TAB PO SCH (08:28)
[2021-07-19] MEDS: ZINC SULFATE 220 MG CAP PO SCH (08:28)
[2021-07-19] MEDS: FERROUS SULFATE 325 MG TAB PO SCH (08:28)
[2021-07-19] MEDS: ASCORBIC ACID 500 MG TAB PO SCH (08:28)
[2021-07-19] MEDS: buPROPion 75 MG TAB PO SCH (08:29)
[2021-07-19] MEDS: MECLIZINE 12.5 MG TAB PO SCH ×2 (08:30→16:13)
[2021-07-19] MEDS: FLUTICASONE 50MCG/SPRAY NASAL 16GM EA NOSTRIL SCH (08:30)
[2021-07-19 11:45] LABS: Glucose,Whole Blood 221 mg/dL (75-99)
--- NOTE | 2021-07-19 14:02 | P.PN ---
Subjective Progress Note Date: 07/19/21 Principal diagnosis: CoVID pneumonia 65-year-old male, who presented to the emergency department, on July 10, and plenty of a number things including fever, chills, shortness of breath, cough, nausea, and general weakness, since June 30. The patient becomes very winded with any exercise or exertion, and notices that he starts to cough. The cough is mostly dry and harsh, and very painful. The patient is on vaccinated against coronavirus. His roommate, is also in the hospital currently, with coronavirus infection. The patient tested positive for coronavirus on July 10. The patient has a history of diabetes mellitus, diverticular disease, gastroesophageal reflux disease, hypertension, and hypothyroidism. The patient has also had previous bariatric surgery for obesity. The patient is a former smoker. Laboratory data includes a white count 6.8, hemoglobin 16.5, hematocrit 48.1, and a platelet count as 136,000. D-dimer was 1.27. Sodium 137, potassium 4.2, chlorides 104, CO2 20, anion gap 13, BUN 25, and creatinine 1.1. Glucose is 208. Pro-calcitonin level was 0.26. C-reactive protein 7.6. LDH 1378. Urine is negative. Chest x-ray shows diffuse patchy infiltrates, and computed tomography scan though negative for pulmonary embolism, showed significant bilateral groundglass opacities consistent with coronavirus pneumonia. The patient is seen today 07/12/2021 and follow-up on the regular medical floor. He is currently resting comfortably in bed. Later this left side. Awake and alert in no acute distress. He is maintaining O2 saturations in the 90s on 3 L/m per nasal cannula. White count 12.5. Hemoglobin 14.9. Lymphocytes 0.8. Sodium 138. Potassium 4.9. Creatinine 0.8. Local to 48. AST 32. AST 18. He's been initiated on Decadron, Lovenox, vitamin supplements. The patient is seen today 07/13/2021 in follow-up on the regular medical floor. He is currently sitting up in a chair at the bedside. Awake and alert in no ac [place] distress. He is now requiring 15 L high flow nasal cannula to maintain O2 saturations at 92%. He is dyspneic with minimal exertion. Normal saline at 75 ML's per hour. Chest x-ray continues to show bilateral multifocal patchy opacities greater in the periphery consistent with COVID-19 pneumonia. No significant change from previous. White count 13.6. Hemoglobin 13.8. Lymphocytes 0.95. D-dimer 0.86. Sodium 139. Potassium 4.7. Creatinine 0.9. Glucose 138. LDH 430. C-reactive protein 1.5. He is continued on Decadron, Lovenox, vitamin supplements. The patient is seen today 07/19/2021 in follow-up on the regular medical floor. He is currently sitting up in bed. Awake and alert in no acute distress. He is down to 4 L high flow nasal cannula to maintain O2 saturations in the 90s. His been afebrile. Hemodynamically stable. Blood sugar 221. He is continued on Decadron, Lovenox, vitamin supplements. Objective - Vital Signs Vital signs: Vital Signs Temp 98.1 F 07/19/21 10:00 Pulse 64 07/19/21 10:00 Resp 17 07/19/21 10:00 BP 109/63 07/19/21 10:00 Pulse Ox 93 L 07/19/21 10:00 Intake & Output 07/18/21 07/19/21 07/19/21 18:59 06:59 18:59 Intake Total 600 Balance 600 Intake: Oral 600 Other: # Voids 4 2 1 - Exam GENERAL EXAM: Alert, pleasant 65-year-old gentleman on 4 L high flow nasal cannula, comfortable in no apparent distress. HEAD: Normocephalic. EYES: Normal reaction of pupils, equal size. NOSE: Clear with pink turbinates. THROAT: No erythema or exudates. NECK: No masses, no JVD. CHEST: No chest wall deformity. LUNGS: Equal air entry with faint crackles in the posterior bases. CVS: S1 and S2 normal with no audible murmur, regular rhythm. ABDOMEN: No hepatosplenomegaly, normal bowel sounds, no guarding or rigidity. SPINE: No scoliosis or deformity SKIN: No rashes CENTRAL NERVOUS SYSTEM: No focal deficits, tone is normal in all 4 extremities. EXTREMITIES: There is no peripheral edema. No clubbing, no cyanosis. Peripheral pulses are intact. - Labs CBC & Chem 7: 07/17/21 06:39 07/17/21 06:39 Labs: Abnormal Lab Results - Last 24 Hours (Table) 07/18/21 07/18/21 07/19/21 Range/Units 16:09 20:10 07:11 POC Glucose (mg/dL) 273 H 253 H 228 H (75-99) mg/dL 07/19/21 Range/Units 11:43 POC Glucose (mg/dL) 221 H (75-99) mg/dL Assessment and Plan Assessment: 1 Acute hypoxemic respiratory failure secondary to coronavirus associated pneumonia. Outside the window for Remdesivir. 2 Elevated inflammatory markers, secondary to coronavirus infection. 3 No evidence of pulmonary embolism on CT angiogram. 4 History of hypothyroidism. 5 History of gastroesophageal reflux disease. 6 History of diabetes mellitus. 7 History of hypertension. 8 History of diverticular disease. 9 Prior history of bariatric surgery for obesity. 10 History of prior tobacco use. Plan: The patient was seen and evaluated today Currently stable from the pulmonary standpoint On 4 L per minute per nasal cannula Could be discharged home with home oxygen Follow-up in our office in 3-4 weeks I, the cosigning physician, performed a history & physical examination of the patient. Lungs sounds with faint crackles in the posterior. Maintaining good O2 saturations in the 90s on 4 L/m per nasal cannula. I discussed the assessment and plan of care with my nurse practitioner, Tosin Espana. I attest to the above note as dictated by her.
[2021-07-19 14:53] VITALS: BP 121/76; PULSE 75; RESP 16; TEMP 98.4
[2021-07-19 16:32] LABS: Glucose,Whole Blood 342 mg/dL (75-99)
--- NOTE | 2021-07-19 17:56 | PN ---
PROGRESS NOTE DATE OF SERVICE: 07/19/2021 REASON FOR FOLLOWUP: COVID-19 pneumonia. INTERVAL HISTORY: The patient is afebrile. The patient is breathing more comfortably. The patient is currently down to 4 L nasal cannula. The patient denies any chest pain. No worsening cough or sputum production. No abdominal pain, no diarrhea. PHYSICAL EXAMINATION: Blood pressure 121/76, pulse 75, temperature 98.5. He is 91% on 4 L nasal cannula. General description is a middle-aged male lying in bed in no distress. Respiratory system: Unlabored breathing, decreased intensity of breath sounds, no wheeze. Heart S1, S2. Regular rate and rhythm. Abdomen soft, no tenderness. LABS: No new labs have been obtained today. DIAGNOSTIC IMPRESSION AND PLAN: Patient with acute COVID-19 pneumonia in this patient who seemed to show overall clinical improvement. Patient to continue with dexamethasone, ( ) zinc and ascorbic acid along with respiratory support and monitor clinical course closely. MMODL / IJN: [id number] /
--- NOTE | 2021-07-19 22:12 | P.DS ---
Providers Date of admission: 07/10/21 20:41 Attending physician: Dudley Danielson Consults: 07/10/21 19:56 Consult Physician Urgent Consulting Provider: Alfredito Ramirez Consult Reason/Comments: Covid pneumonia Do you want consulting provider notified?: Yes 07/11/21 12:54 Consult Physician Routine Consulting Provider: Yamil Gutierrez Consult Reason/Comments: covid Do you want consulting provider notified?: Yes Primary care physician: [facility] Hospital Course: Diagnoses: Bilateral Covid pneumonia Acute hypoxic respiratory failure Increased inflammatory markers Hospital course: This is a pleasant 65 years old male with past medical history of diabetes mellitus, hypertension, GERD, hypothyroidism. Presents with respiratory symptoms secondary to covid infection and acute hypoxic respiratory failure. Patient has been evaluated by pulmonary service, he was treated with dexamethasone, vitamin C, D and zinc. Also received Lovenox and Protonix. CTA of the chest was negative for pulmonary embolism but showing bilateral pulmonary infiltrates. Venous ultrasound of the leg was negative. He wishes to his oxygen requirement was 50 L/m gradually improved down to 5 L/m and 4 L/m today. A symptoms remains minimal and on the day of discharge he denies chest pain. No change in urine or bowel habits. No fever. Patient told me initially he was taken 500 mg of metformin twice daily however because of good hemoglobin A1c is Doctor lowered to once daily. prior to hospitalization. Upon discharge we will put him back on on 500 mg of metformin twice daily., Glucometer provided for him as well as home oxygen by vocational case manager. Inspection to monitor glucose closely is explained for the patient, see discharge instructions, patient verbalized understanding and acceptance. Patient was cleared for discharge by bench grinder. Problems and management plan were discussed with the patient and he verbalized understanding and acceptance Patient was found stable and can be discharged home however he needs follow-up as an outpatient. Patient was instructed to follow up with PCP in the [facility] within one week and patient agrees Patient was instructed to follow up with bench grinder in 2-3 weeks upon discharge and he agrees. Physical exam Gen: patient is a AAOx3, no distress CVS: S1-S2, RRR, no murmur Lungs: B/L CTA, no wheezing Abdomen: soft, no distention, no tenderness, positive bowel sounds Extremity: no leg edema or induration Time spent more than 35 minutes Patient Condition at Discharge: Good Plan - Discharge Summary Discharge Rx Participant: Yes New Discharge Prescriptions: New Meclizine [Antivert] 12.5 mg PO TID PRN #90 tab PRN Reason: Vertigo Zinc Sulfate [Orazinc] 220 mg PO DAILY #30 cap Cholecalciferol [Vitamin D3 (25 Mcg = 1000 Iu)] 100 mcg PO DAILY #120 tablet Dexamethasone [Decadron] 6 mg PO DAILY 2 Days #2 tablet Ascorbic Acid [Vitamin C] 1,000 mg PO DAILY #60 tab Continue Levothyroxine Sodium [Synthroid] 100 mcg PO DAILY Loratadine 10 mg PO DAILY Lisinopril [Zestril] 10 mg PO DAILY Dm/Acetaminophen/Doxylamine [Vicks Nyquil Liquicaps] 2 cap PO Q6H PRN PRN Reason: Cold Symptoms guaiFENesin [Mucinex] 600 mg PO BID buPROPion [Wellbutrin] 150 mg PO DAILY Gabapentin 800 mg PO TID DULoxetine HCL [Cymbalta] 20 mg PO HS Fluticasone Nasal Jackson [Flonase Nasal Jackson] 1 spr EA NOSTRIL DAILY Omeprazole 20 mg PO DAILY #30 cap Changed metFORMIN HCL [Glucophage] 500 mg PO BID 15 Days #30 tab Discontinued Ferrous Sulfate [Feosol] 325 mg PO DAILY Cholecalciferol [Vitamin D3 (25 Mcg = 1000 Iu)] 25 mcg PO DAILY Azithromycin [Zithromax Z-pack (6 tabs)] See Taper PO DAILY Multivitamins, Thera [Multivitamin (formulary)] 1 tab PO BID Tadalafil [Cialis] 5 mg PO DAILY PRN PRN Reason: E.D. Discharge Medication List Levothyroxine Sodium [Synthroid] 100 mcg PO DAILY 08/24/19 [History] Loratadine 10 mg PO DAILY 08/24/19 [History] Lisinopril [Zestril] 10 mg PO DAILY 08/25/19 [History] DULoxetine HCL [Cymbalta] 20 mg PO HS 07/10/21 [History] Dm/Acetaminophen/Doxylamine [Vicks Nyquil Liquicaps] 2 cap PO Q6H PRN 07/10/21 [History] Fluticasone Nasal Jackson [Flonase Nasal Jackson] 1 spr EA NOSTRIL DAILY 07/10/21 [History] Gabapentin 800 mg PO TID 07/10/21 [History] buPROPion [Wellbutrin] 150 mg PO DAILY 07/10/21 [History] guaiFENesin [Mucinex] 600 mg PO BID 07/10/21 [History] Ascorbic Acid [Vitamin C] 1,000 mg PO DAILY #60 tab 07/19/21 [Rx] Cholecalciferol [Vitamin D3 (25 Mcg = 1000 Iu)] 100 mcg PO DAILY #120 tablet 07/19/21 [Rx] Dexamethasone [Decadron] 6 mg PO DAILY 2 Days #2 tablet 07/19/21 [Rx] Meclizine [Antivert] 12.5 mg PO TID PRN #90 tab 07/19/21 [Rx] Omeprazole 20 mg PO DAILY #30 cap 07/19/21 [Rx] Zinc Sulfate [Orazinc] 220 mg PO DAILY #30 cap 07/19/21 [Rx] metFORMIN HCL [Glucophage] 500 mg PO BID 15 Days #30 tab 07/19/21 [Rx] Follow up Appointment(s)/Referral(s): Alfredito Ramirez DO [Doctor of Osteopathic Medicine] - 08/06/21 1:00 pm (With Tosin Espana) [facility] [NON-STAFF] - As Needed [facility]Clinic [Primary Care Provider] - 1-2 days (Please call to make appointment ) Patient Instructions/Handouts: Coronavirus Disease 2019 (COVID-19) Activity/Diet/Wound Care/Special Instructions: [facility]com[facility] care ordered through [facility]. Oxygen ordered through [facility]: #[phone] Heart healthy diet, low carbohydrate 1800 kcal per day Activity is restricted till you see your doctor we recommend to check your glucoses 4 times a day, before each meal and at bedtime, keep results in a log book and bring it to your doctor on your appointment date If your glucose less than 70 or more than 400, then call 911 on come to emergency room Discharge Disposition: HOME WITH HOME HEALTH SERVICES
== END 2021-07-19 17:48 | disposition home health service (06) | DRG 177 ==
LOC: EC 13:17 → 4SSUR 20:41
PROVIDERS: ADMIT Hospitalist; ATTEND Hospitalist
DX: U07.1 COVID-19 (principal); J12.82 Pneumonia due to coronavirus disease 2019; J96.01 Acute respiratory failure with hypoxia; N17.0 Acute kidney failure with tubular necrosis; E87.1 Hypo-osmolality and hyponatremia; Z68.37 Body mass index [BMI] 37.0-37.9, adult; K21.9 Gastro-esophageal reflux disease without esophagitis; I10 Essential (primary) hypertension; E86.0 Dehydration; E66.9 Obesity, unspecified; E11.9 Type 2 diabetes mellitus without complications; E03.9 Hypothyroidism, unspecified; D72.810 Lymphocytopenia; D69.6 Thrombocytopenia, unspecified; K57.90 Diverticulosis of intestine, part unspecified, without perforation or abscess without bleeding; M19.90 Unspecified osteoarthritis, unspecified site; R79.82 Elevated C-reactive protein (CRP); R79.89 Other specified abnormal findings of blood chemistry; Z79.01 Long term (current) use of anticoagulants; Z98.84 Bariatric surgery status; Z87.891 Personal history of nicotine dependence; Z79.899 Other long term (current) drug therapy; Z79.890 Hormone replacement therapy; Z79.84 Long term (current) use of oral hypoglycemic drugs; Z79.4 Long term (current) use of insulin
CPT/HCPCS: 36415; 71045; 71046; 71275; 80048; 80053; 81001; 82728; 83605; 83615; 83735; 84145; 85025; 85379; 85610; 85730; 86140; 87502; 87635; 93005; 93970; 94640; 94760; 96361; 96374; 99285

== ENCOUNTER 2021-07-20 22:49 | Emergency (ER) | payer OTHER ==
[2021-07-20 23:18] VITALS: TEMP 98.1
[2021-07-20 23:22] LABS: Glucose,Whole Blood 258 mg/dL (75-99)
[2021-07-20] MEDS ORDERED: SODIUM CHLORIDE 0.9% 1,000 ML IV ONE (23:36)
[2021-07-21 00:39] LABS: Basophils % (A) 0 %; Eosinophils # (A) 0.1 k/uL (0-0.7); Eosinophils % (A) 1 %; HCT 43.9 % (39.0-53.0); HGB 14.3 gm/dL (13.0-17.5); Lymphocytes # (A) 0.6 k/uL (1.0-4.8); Lymphocytes % (A) 6 %; MCH 29.2 pg (25.0-35.0); MCHC 32.6 g/dL (31.0-37.0); MCV 89.6 fL (80.0-100.0); Mean Platelet Volume 7.2; Monocytes # (A) 0.4 k/uL (0-1.0); Monocytes % (A) 3 %; Neutrophils % (A) 89 %; WBC 11.2 k/uL (3.8-10.6)
--- NOTE | 2021-07-21 00:39 | ED ---
Recheck HPI - General Chief Complaint: Recheck/Abnormal Lab/Rx Stated Complaint: Hyperglycemia Time Seen by Provider: 07/20/21 23:34 Source: patient Mode of arrival: EMS - History of Present Illness Initial Comments: 's patient is a 65-year-old man with history of diabetes who presents because he was advised to return to the hospital if his blood sugar was above 400. He checked the blood sugar and it was over 500. The patient relates he had been in the hospital for approximately 9 days related to covid pneumonia. The patient had gone home and had finished the last of his dexamethasone treatment today. The patient checked his blood sugar and it was elevated. Following that he took a dose of metformin and then phoned EMS. MD Complaint: abnormal lab -: hour(s) Initial Visit For: other Returns Today for: other Symptoms Since Prior Visit: no new symptoms Context: other Associated Symptoms: none Treatments Prior to Arrival: other - Related Data Home Medications Medication Instructions Recorded Confirmed Levothyroxine Sodium [Synthroid] 100 mcg PO DAILY 08/24/19 07/10/21 Loratadine 10 mg PO DAILY 08/24/19 07/10/21 Lisinopril [Zestril] 10 mg PO DAILY 08/25/19 07/10/21 DULoxetine HCL [Cymbalta] 20 mg PO HS 07/10/21 07/10/21 Dm/Acetaminophen/Doxylamine [Vicks 2 cap PO Q6H PRN 07/10/21 07/10/21 Nyquil Liquicaps] Fluticasone Nasal [place] [Flonase 1 spr EA NOSTRIL DAILY 07/10/21 07/10/21 Nasal [place]] Gabapentin 800 mg PO TID 07/10/21 07/10/21 buPROPion [Wellbutrin] 150 mg PO DAILY 07/10/21 07/10/21 guaiFENesin [Mucinex] 600 mg PO BID 07/10/21 07/10/21 Previous Rx's Medication Instructions Recorded Ascorbic Acid [Vitamin C] 1,000 mg PO DAILY #60 tab 07/19/21 Cholecalciferol [Vitamin D3 (25 100 mcg PO DAILY #120 tablet 07/19/21 Mcg = 1000 Iu)] Dexamethasone [Decadron] 6 mg PO DAILY 2 Days #2 tablet 07/19/21 Meclizine [Antivert] 12.5 mg PO TID PRN #90 tab 07/19/21 Omeprazole 20 mg PO DAILY #30 cap 07/19/21 Zinc Sulfate [Orazinc] 220 mg PO DAILY #30 cap 07/19/21 metFORMIN HCL [Glucophage] 500 mg PO BID 15 Days #30 tab 07/19/21 Allergies Allergy/AdvReac Type Severity Reaction Status Date / Time No Known Allergies Allergy Verified 07/10/21 16:49 Review of Systems ROS Statement: Those systems with pertinent positive or pertinent negative responses have been documented in the HPI. ROS Other: All systems not noted in ROS Statement are negative. Constitutional: Reports: weakness. Denies: fever, chills Respiratory: Reports: cough. Denies: dyspnea, wheezes, hemoptysis Cardiovascular: Reports: dyspnea on exertion. Denies: chest pain, palpitations, orthopnea, edema, syncope Endocrine: Reports: fatigue Gastrointestinal: Denies: abdominal pain, nausea, vomiting, diarrhea Genitourinary: Denies: dysuria, frequency, hematuria Musculoskeletal: Denies: back pain Skin: Denies: rash Neurological: Denies: headache, weakness Past Medical History Past Medical History: Diabetes Mellitus, GERD/Reflux, Hypertension, Thyroid Disorder Additional Past Medical History / Comment(s): DIVERTICULOSIS History of Any Multi-Drug Resistant Organisms: None Reported Past Surgical History: Appendectomy, Bariatric Surgery, Joint Replacement, Orthopedic Surgery Additional Past Surgical History / Comment(s): GATRIC SLEEVE. BILAT TKA. COLONOSCOPY. EYELID SX. RHINOPLASTY. Back Surgery 09/03/20 Past Anesthesia/Blood Transfusion Reactions: Motion Sickness Past Psychological History: No Psychological Hx Reported Smoking Status: Former smoker, Vaper Past Alcohol Use History: Rare Past Drug Use History: None Reported - Past Family History Mother Family Medical History: No Reported History Sister(s) Family Medical History: Cancer Father Family Medical History: Cancer General Exam General appearance: alert, in no apparent distress Head exam: Present: atraumatic, normocephalic Eye exam: Present: normal appearance. Absent: scleral icterus, conjunctival injection ENT exam: Present: mucous membranes dry Neck exam: Present: normal inspection Respiratory exam: Present: normal lung sounds bilaterally, rales (There are a few bilateral rales). Absent: respiratory distress, wheezes, rhonchi, stridor Cardiovascular Exam: Present: regular rate, normal rhythm, normal heart sounds. Absent: systolic murmur, diastolic murmur, rubs, gallop GI/Abdominal exam: Present: soft. Absent: distended, tenderness, guarding, rebound, rigid, mass Extremities exam: Present: normal inspection, normal capillary refill. Absent: pedal edema, calf tenderness Back exam: Present: normal inspection Neurological exam: Present: alert Skin exam: Present: warm, dry, intact, normal color. Absent: rash Course Vital Signs 07/20/21 23:04 Temperature 98.1 F Pulse Rate 88 Respiratory 18 Rate Blood Pressure 111/73 O2 Sat by Pulse 93 L Oximetry Medical Decision Making - Lab Data Result diagrams: 07/21/21 00:16 07/21/21 00:16 Lab Results 07/20/21 07/21/21 07/21/21 Range/Units 23:19 00:16 00:16 WBC 11.2 H (3.8-10.6) k/uL RBC 4.90 (4.30-5.90) m/uL Hgb 14.3 (13.0-17.5) gm/dL Hct 43.9 (39.0-53.0) % MCV 89.6 (80.0-100.0) fL MCH 29.2 (25.0-35.0) pg MCHC 32.6 (31.0-37.0) g/dL RDW 13.0 (11.5-15.5) % Plt Count 295 D (150-450) k/uL MPV 7.2 Neutrophils % 89 % Lymphocytes % 6 % Monocytes % 3 % Eosinophils % 1 % Basophils % 0 % Neutrophils # 10.0 H (1.3-7.7) k/uL Lymphocytes # 0.6 L (1.0-4.8) k/uL Monocytes # 0.4 (0-1.0) k/uL Eosinophils # 0.1 (0-0.7) k/uL Basophils # 0.0 (0-0.2) k/uL Sodium 133 L (137-145) mmol/L Potassium 5.5 H (3.5-5.1) mmol/L Chloride 104 (98-107) mmol/L Carbon Dioxide 23 (22-30) mmol/L Anion Gap 6 mmol/L BUN 28 H (9-20) mg/dL Creatinine 0.85 (0.66-1.25) mg/dL Est GFR (CKD-EPI)AfAm >90 (>60 ml/min/1.73 sqM) Est GFR (CKD-EPI)NonAf >90 (>60 ml/min/1.73 sqM) Glucose 288 H (74-99) mg/dL POC Glucose (mg/dL) 258 H (75-99) mg/dL POC Glu Intramural Director ID Nando Cade Calcium 9.0 (8.4-10.2) mg/dL Total Bilirubin 0.5 (0.2-1.3) mg/dL AST 28 (17-59) U/L ALT 29 (4-49) U/L Alkaline Phosphatase 68 (38-126) U/L Total Protein 6.1 L (6.3-8.2) g/dL Albumin 2.9 L (3.5-5.0) g/dL Acetone, Qual Negative (Negative) Disposition Clinical Impression: Hyperglycemia Disposition: HOME SELF-CARE Condition: Good Instructions (If sedation given, give patient instructions): Diabetic H yperglycemia (ED) Is patient prescribed a controlled substance at d/c from ED?: No Referrals: [facility] [Primary Care Provider] - 1-2 days
[2021-07-21 00:41] LABS: Platelet Count 295 k/uL (150-450)
[2021-07-21 00:51] LABS: ALT 29 U/L (4-49); AST 28 U/L (17-59); African American GFR (CKD) >90 (>60 ml/min/1.73 sqM); Albumin 2.9 g/dL (3.5-5.0); Alkaline Phosphatase 68 U/L (38-126); Anion Gap 6 mmol/L; Blood Urea Nitrogen 28 mg/dL (9-20); Carbon Dioxide 23 mmol/L (22-30); Chloride 104 mmol/L (98-107); Glucose 288 mg/dL (74-99); Non-African American GFR(CKD) >90 (>60 ml/min/1.73 sqM); Potassium 5.5 mmol/L (3.5-5.1); Sodium 133 mmol/L (137-145); Total Bilirubin 0.5 mg/dL (0.2-1.3); Total Protein 6.1 g/dL (6.3-8.2)
[2021-07-21 03:18] LABS: Glucose,Whole Blood 252 mg/dL (75-99)
[2021-07-21 03:21] VITALS: BP 118/75; PULSE 91; RESP 17
== END 2021-07-21 04:01 | disposition home or self-care (01) ==
LOC: EC 22:49
DX: E11.65 Type 2 diabetes mellitus with hyperglycemia (principal); I10 Essential (primary) hypertension; K21.9 Gastro-esophageal reflux disease without esophagitis; Z87.891 Personal history of nicotine dependence; Z79.84 Long term (current) use of oral hypoglycemic drugs; Z79.890 Hormone replacement therapy; Z79.899 Other long term (current) drug therapy
CPT/HCPCS: 36415; 80053; 82009; 85025; 96360; 99284

== ENCOUNTER 2021-07-22 17:40 | Inpatient (IN) | payer OTHER ==
[2021-07-22 19:00] LABS: Basophils % (A) 0 %; Eosinophils # (A) 0.1 k/uL (0-0.7); Eosinophils % (A) 1 %; HCT 43.3 % (39.0-53.0); HGB 14.1 gm/dL (13.0-17.5); Lymphocytes # (A) 1.9 k/uL (1.0-4.8); Lymphocytes % (A) 15 %; MCH 28.6 pg (25.0-35.0); MCHC 32.6 g/dL (31.0-37.0); MCV 87.8 fL (80.0-100.0); Monocytes # (A) 0.8 k/uL (0-1.0); Monocytes % (A) 6 %; Neutrophils # (A) 9.6 k/uL (1.3-7.7); Neutrophils % (A) 77 %; Platelet Count 247 k/uL (150-450); RBC 4.93 m/uL (4.30-5.90); RDW 12.6 % (11.5-15.5); WBC 12.6 k/uL (3.8-10.6)
[2021-07-22 19:14] LABS: ALT 23 U/L (4-49); AST 17 U/L (17-59); African American GFR (CKD) >90 (>60 ml/min/1.73 sqM); Albumin 2.9 g/dL (3.5-5.0); Alkaline Phosphatase 73 U/L (38-126); Anion Gap 6 mmol/L; Blood Urea Nitrogen 31 mg/dL (9-20); Calcium 9.6 mg/dL (8.4-10.2); Carbon Dioxide 23 mmol/L (22-30); Chloride 105 mmol/L (98-107); Glucose 168 mg/dL (74-99); Magnesium 1.6 mg/dL (1.6-2.3); Non-African American GFR(CKD) >90 (>60 ml/min/1.73 sqM); Potassium 4.4 mmol/L (3.5-5.1); Sodium 134 mmol/L (137-145); Total Bilirubin 0.4 mg/dL (0.2-1.3); Total Protein 6.1 g/dL (6.3-8.2)
[2021-07-22 19:22] LABS: Prothrombin Time 10.2 sec (9.0-12.0)
--- NOTE | 2021-07-22 19:54 | XR ---
EXAMINATION TYPE: XR chest 2V DATE OF EXAM: 07/22/2021 COMPARISON: 07/17/2021 HISTORY: Short of breath TECHNIQUE: 3 views FINDINGS: There is coarse pulmonary interstitial and airspace infiltrate. Heart size is normal. There is no pleural effusion. There are chest leads. IMPRESSION: Extensive infiltrates consistent with multifocal pneumonia and not significantly differen t than recent exam.
--- NOTE | 2021-07-22 20:56 | CT ---
EXAMINATION TYPE: CT chest angio for PE DATE OF EXAM: 07/22/2021 COMPARISON: 07/10/2021 HISTORY: SOB, recent covid CT DLP: 808.9 mGycm Automated exposure control for dose reduction was used. CONTRAST: Performed with IV Contrast, patient injected with 80cc mL of Isovue 370. There are Three-D postprocessed images. There is patchy interstitial and airspace consolidation in both lungs. There is no pleural effusion. There is no pericardial effusion. Heart size is normal. There are a few mediastinal and bronchial lym ph nodes up to 1 cm. Thoracic aorta is intact. There is no aneurysm or dissection. There are filling defects in the right lower lobe pulmonary artery and the posterior basal segment. The thoracic spine is intact. There is no compression fracture. Sternum is intact. IMPRESSION: There is right lower lobe pulmonary embolism which appears new compared to old exam. Extensive bilateral pulmonary infiltrates consistent with multifocal pneumonia and appears worse than last exam.
[2021-07-22] MEDS ORDERED: HEPARIN SODIUM 1,000 UN/ML (10ML VL) IV ONE (21:53)
[2021-07-22] MEDS ORDERED: HEPARIN SODIUM 1,000 UN/ML (10ML VL) IV PRN (21:53)
--- NOTE | 2021-07-22 21:57 | ED ---
SOB HPI - General Chief Complaint: Shortness of Breath Stated Complaint: covid+, SOB Source: patient, EMS Mode of arrival: EMS Limitations: no limitations - History of Present Illness Initial Comments: Patient is a 65-year-old male with past history of diabetes, hypertension, low thyroid who presents emergency Department with shortness of breath. Patient was hospitalized between the and for covert pneumonia. He was treated with Decadron. He was discharged home on Decadron. He was seen in the emergency department yesterday for hyperglycemia. Patient's oxygen saturations were stable therefore he was discharged home. He reports that he has been on 4 L of oxygen at home however has significant exertional dyspnea. States he is unable to get up and make his own food because he becomes too short of breath. He has been turning his oxygen up to 5 L without improvement. States that his pulse ox would drop to 70% when ambulatory. He has home care coming in 3 times a week however states this is not enough. He has not been eating or drinking. Denies any calf pain or swelling. Patient not on any anticoagulation. He denies chest pain. No other alleviating, precipitating or modifying factors - Related Data Home Medications Medication Instructions Recorded Confirmed Levothyroxine Sodium [Synthroid] 100 mcg PO DAILY 08/24/19 07/22/21 Loratadine 10 mg PO DAILY 08/24/19 07/22/21 Lisinopril [Zestril] 10 mg PO DAILY 08/25/19 07/22/21 DULoxetine HCL [Cymbalta] 20 mg PO HS 07/10/21 07/22/21 Fluticasone Nasal [place] [Flonase 1 spr EA NOSTRIL DAILY 07/10/21 07/22/21 Nasal [place]] Gabapentin 800 mg PO TID 07/10/21 07/22/21 buPROPion [Wellbutrin] 150 mg PO DAILY 07/10/21 07/22/21 guaiFENesin [Mucinex] 600 mg PO BID PRN 07/10/21 07/22/21 Meclizine [Antivert] 25 mg PO TID PRN 07/22/21 07/22/21 Previous Rx's Medication Instructions Recorded Ascorbic Acid [Vitamin C] 1,000 mg PO DAILY #60 tab 07/19/21 Cholecalciferol [Vitamin D3 (25 100 mcg PO DAILY #120 tablet 07/19/21 Mcg = 1000 Iu)] Omeprazole 20 mg PO DAILY #30 cap 07/19/21 Zinc Sulfate [Orazinc] 220 mg PO DAILY #30 cap 07/19/21 metFORMIN HCL [Glucophage] 500 mg PO BID 15 Days #30 tab 07/19/21 Allergies Allergy/AdvReac Type Severity Reaction Status Date / Time No Known Allergies Allergy Verified 07/22/21 22:44 Review of Systems ROS Statement: Those systems with pertinent positive or pertinent negative responses have been documented in the HPI. ROS Other: All systems not noted in ROS Statement are negative. Past Medical History Past Medical History: Diabetes Mellitus, GERD/Reflux, Hypertension, Thyroid Disorder Additional Past Medical History / Comment(s): DIVERTICULOSIS History of Any Multi-Drug Resistant Organisms: None Reported Past Surgical History: Appendectomy, Bariatric Surgery, Joint Replacement, Orthopedic Surgery Additional Past Surgical History / Comment(s): GATRIC SLEEVE. BILAT TKA. COLONOSCOPY. EYELID SX. RHINOPLASTY. Back Surgery 09/03/20 Past Anesthesia/Blood Transfusion Reactions: Motion Sickness Past Psychological History: No Psychological Hx Reported Smoking Status: Former smoker, Vaper Past Alcohol Use History: Rare Past Drug Use History: None Reported - Past Family History Mother Family Medical History: No Reported History Sister(s) Family Medical History: Cancer Father Family Medical History: Cancer General Exam Limitations: no limitations Course Vital Signs 07/22/21 18:04 Temperature 98.2 F Pulse Rate 78 Respiratory 25 H Rate Blood Pressure 133/72 O2 Sat by Pulse 98 Oximetry Medical Decision Making - Medical Decision Making Upon arrival patient is placed into room 10. He is saturating 93% on 4 L. IV is established and laboratory studies are conducted. Laboratory studies were reviewed and demonstrated a d-dimer of 6.06. During recent hospital physician for Covid his d-dimer was 2.9. He is sent over for a CT of his chest due to worsening d-dimer which demonstrates right lower lobe pulmonary embolism which is new. Additionally there is extensive bilateral pulmonary infiltrates cons istent with multifocal pneumonia. Due to the new found PE the patient is started on heparin drip. He has no contraindications to heparin. He recommended admission for which the patient did agree to. Spoke with Chery from [facility] who agreed to admit the patient. Pulm will be placed on consult - Lab Data Result diagrams: 07/22/21 18:40 07/22/21 18:40 Lab Results 07/22/21 07/22/21 07/22/21 Range/Units 18:40 18:40 18:40 WBC 12.6 H (3.8-10.6) k/uL RBC 4.93 (4.30-5.90) m/uL Hgb 14.1 (13.0-17.5) gm/dL Hct 43.3 (39.0-53.0) % MCV 87.8 (80.0-100.0) fL MCH 28.6 (25.0-35.0) pg MCHC 32.6 (31.0-37.0) g/dL RDW 12.6 (11.5-15.5) % Plt Count 247 (150-450) k/uL MPV 7.0 Neutrophils % 77 % Lymphocytes % 15 % Monocytes % 6 % Eosinophils % 1 % Basophils % 0 % Neutrophils # 9.6 H (1.3-7.7) k/uL Lymphocytes # 1.9 (1.0-4.8) k/uL Monocytes # 0.8 (0-1.0) k/uL Eosinophils # 0.1 (0-0.7) k/uL Basophils # 0.0 (0-0.2) k/uL PT 10.2 (9.0-12.0) sec INR 1.0 (<1.2) APTT 23.0 (22.0-30.0) sec D-Dimer 6.06 H (<0.60) mg/L FEU Sodium 134 L (137-145) mmol/L Potassium 4.4 (3.5-5.1) mmol/L Chloride 105 (98-107) mmol/L Carbon Dioxide 23 (22-30) mmol/L Anion Gap 6 mmol/L BUN 31 H (9-20) mg/dL Creatinine 0.77 (0.66-1.25) mg/dL Est GFR (CKD-EPI)AfAm >90 (>60 ml/min/1.73 sqM) Est GFR (CKD-EPI)NonAf >90 (>60 ml/min/1.73 sqM) Glucose 168 H (74-99) mg/dL Plasma Lactic Acid Brendan (0.7-2.0) mmol/L Calcium 9.6 (8.4-10.2) mg/dL Magnesium 1.6 (1.6-2.3) mg/dL Total Bilirubin 0.4 (0.2-1.3) mg/dL AST 17 (17-59) U/L ALT 23 (4-49) U/L Alkaline Phosphatase 73 (38-126) U/L Troponin I (0.000-0.034) ng/mL Total Protein 6.1 L (6.3-8.2) g/dL Albumin 2.9 L (3.5-5.0) g/dL 07/22/21 07/22/21 Range/Units 18:40 18:40 WBC (3.8-10.6) k/uL RBC (4.30-5.90) m/uL Hgb (13.0-17.5) gm/dL Hct (39.0-53.0) % MCV (80.0-100.0) fL MCH (25.0-35.0) pg MCHC (31.0-37.0) g/dL RDW (11.5-15.5) % Plt Count (150-450) k/uL MPV Neutrophils % % Lymphocytes % % Monocytes % % Eosinophils % % Basophils % % Neutrophils # (1.3-7.7) k/uL Lymphocytes # (1.0-4.8) k/uL Monocytes # (0-1.0) k/uL Eosinophils # (0-0.7) k/uL Basophils # (0-0.2) k/uL PT (9.0-12.0) sec INR (<1.2) APTT (22.0-30.0) sec D-Dimer (<0.60) mg/L FEU Sodium (137-145) mmol/L Potassium (3.5-5.1) mmol/L Chloride (98-107) mmol/L Carbon Dioxide (22-30) mmol/L Anion Gap mmol/L BUN (9-20) mg/dL Creatinine (0.66-1.25) mg/dL Est GFR (CKD-EPI)AfAm (>60 ml/min/1.73 sqM) Est GFR (CKD-EPI)NonAf (>60 ml/min/1.73 sqM) Glucose (74-99) mg/dL Plasma Lactic Acid Brendan 1.4 (0.7-2.0) mmol/L Calcium (8.4-10.2) mg/dL Magnesium (1.6-2.3) mg/dL Total Bilirubin (0.2-1.3) mg/dL AST (17-59) U/L ALT (4-49) U/L Alkaline Phosphatase (38-126) U/L Troponin I <0.012 (0.000-0.034) ng/mL Total Protein (6.3-8.2) g/dL Albumin (3.5-5.0) g/dL - EKG Data EKG Comments: EKG demonstrates a normal sinus rhythm with a ventricular rate of 80. [place] interval 154. QRS 90. QTC of 435. No acute ST segment elevations or depressions concerning for ischemic changes Disposition Clinical Impression: COVID-19, Pneumonia due to COVID-19 virus, Pulmonary emboli, Hypomagnesemia Disposition: ADMITTED IP TO THIS [facility] Condition: Serious Is patient prescribed a controlled substance at d/c from ED?: No Decision to Admit Reason: Admit from EC Decision Date: 07/22/21 Decision Time: 22:14
[2021-07-22] MEDS ORDERED: NALOXONE 0.4 MG/ML 1 ML VIAL IV PRN (22:14)
[2021-07-22] MEDS ORDERED: MAGNESIUM SULFATE-D5W PMX 1 GM in DEXTROSE/WATER 1 100ML.BAG IVPB ONE (22:16)
[2021-07-22] MEDS: HEPARIN SOD,PORK IN 0.45% NACL 25,000 UNIT in 0.45% NACL 1 250ML.BAG IV SCH (22:24)
[2021-07-23] MEDS ORDERED: MECLIZINE 25 MG TAB PO PRN (00:38)
[2021-07-23] MEDS ORDERED: guaiFENesin 600 MG TABLET.ER PO PRN (00:38)
[2021-07-23] MEDS: GABAPENTIN 400 MG CAP PO SCH ×4 (02:55→21:43)
[2021-07-23] MEDS: DULoxetine HCL 20 MG CAPSULE.DR PO SCH ×2 (02:55→23:17)
[2021-07-23 04:49] LABS: Basophils # (A) 0.1 k/uL (0-0.2); Basophils % (A) 1 %; Eosinophils # (A) 0.1 k/uL (0-0.7); Eosinophils % (A) 1 %; HCT 41.7 % (39.0-53.0); HGB 13.7 gm/dL (13.0-17.5); Lymphocytes # (A) 2.4 k/uL (1.0-4.8); Lymphocytes % (A) 23 %; MCH 28.9 pg (25.0-35.0); MCHC 32.9 g/dL (31.0-37.0); MCV 87.8 fL (80.0-100.0); Mean Platelet Volume 7.2; Monocytes # (A) 0.7 k/uL (0-1.0); Monocytes % (A) 6 %; Neutrophils % (A) 67 %; Platelet Count 234 k/uL (150-450); RBC 4.75 m/uL (4.30-5.90); RDW 12.6 % (11.5-15.5); WBC 10.5 k/uL (3.8-10.6)
[2021-07-23 05:05] LABS: African American GFR (CKD) >90 (>60 ml/min/1.73 sqM); Anion Gap 6 mmol/L; Blood Urea Nitrogen 31 mg/dL (9-20); Calcium 8.8 mg/dL (8.4-10.2); Carbon Dioxide 24 mmol/L (22-30); Chloride 103 mmol/L (98-107); Glucose 173 mg/dL (74-99); Non-African American GFR(CKD) >90 (>60 ml/min/1.73 sqM); Potassium 4.2 mmol/L (3.5-5.1); Sodium 133 mmol/L (137-145)
[2021-07-23 06:11] LABS: Glucose,Whole Blood 149 mg/dL (75-99)
[2021-07-23] MEDS: INSULIN ASPART (NovoLOG) 100 UNIT/ML VIAL SQ SCH ×4 (06:23→21:43)
[2021-07-23] MEDS: LEVOTHYROXINE 100 MCG TAB PO SCH (06:23)
[2021-07-23] MEDS ORDERED: GABAPENTIN 400 MG CAP PO SCH (09:00)
--- NOTE | 2021-07-23 09:25 | US ---
EXAMINATION TYPE: US venous doppler duplex LE DATE OF EXAM: 07/23/2021 7:35 AM COMPARISON: CLINICAL HISTORY: pe. Worsening Covid. PE. On IV heparin. SIDE PERFORMED: Bilateral TECHNIQUE: The lower extremity deep venous system is examined utilizing real time linear array sonog ben with graded compression, doppler sonography and color-flow sonography. VESSELS IMAGED: Common Femoral Vein Deep Femoral Vein Greater Saphenous Vein * Femoral Vein Popliteal Vein Small Saphenous Vein * Proximal Calf Veins (* superficial vessels) Right Leg: Negative for DVT Left Leg: Appears POSITIVE for occluding DVT in calf vein/duplicate distal popliteal vein. IMPRESSION: 1. Findings are positive for DVT left lower extremity distal popliteal and proximal calf veins.
[2021-07-23] MEDS: PANTOPRAZOLE 40 MG TABLET PO SCH (09:31)
[2021-07-23] MEDS: CHOLECALCIFEROL 25 MCG (1000 IU) TABLET PO SCH (09:31)
[2021-07-23] MEDS: buPROPion 75 MG TAB PO SCH (09:31)
[2021-07-23] MEDS: ASCORBIC ACID 500 MG TAB PO SCH (09:31)
[2021-07-23] MEDS: lisinopriL 10 MG TAB PO SCH (09:31)
[2021-07-23] MEDS: LORATADINE 10 MG TAB PO SCH (09:31)
[2021-07-23] MEDS: ZINC SULFATE 220 MG CAP PO SCH (09:31)
[2021-07-23] MEDS: FLUTICASONE 50MCG/SPRAY NASAL 16GM EA NOSTRIL SCH (09:31)
--- NOTE | 2021-07-23 10:54 | P.CNPUL ---
History of Present Illness Consult date: 07/23/21 Requesting physician: Dudley Danielson Reason for consult: dyspnea, abnormal CXR/CT Chief complaint: Shortness of breath History of present illness: This is a 65-year-old male patient with history of hypertension, diabetes Malachi, gastroesophageal reflux is, hypothyroidism, diverticular disease, previous bariatric surgery for morbid obesity, previous tobacco dependence. He had recently been infected with coronavirus and had developed acute hypoxemic respiratory failure secondary to COVID-19 pneumonia. He was discharged from here on home oxygen and Decadron. He presented back to the emergency room on 07/21/2021 for hyperglycemia. He presented again to the emergency room last evening 07/22/2021 with complaints of increasing shortness of breath. He was found to have an acute right lower lobe pulmonary embolism that was new compared to previous exam. He has continued extensive bilateral pulmonary infiltrates consistent with multifocal pneumonia. He is also found to have a DVT in the left lower extremity. He was initiated on a heparin drip. He is seen today in the emergency department. He is currently laying comfortably on the stretcher. Awake and alert in no acute distress. Still somewhat dyspneic on minimal exertion. Dyspneic with conversation. He is maintaining O2 saturations up to 99% on 5 L nasal cannula. Afebrile. Hemodynamically stable. Review of Systems REVIEW OF SYSTEMS: CONSTITUTIONAL: Denies any recent significant weight loss or weight gain. EYES: Denies change in vision. EARS, NOSE, MOUTH, THROAT: Denies headaches, denies sore throat. CARDIOVASCULAR: Denies chest pain, palpitations or syncopal episodes. RESPIRATORY: Positive for shortness of breath, cough, congestion no hemoptysis. GASTROINTESTINAL: Denies change in appetite, denies abdominal pain GENITOURINARY: Denies hematuria, denies infections. MUSKULOSKELETAL: Denies pain, denies swelling. INTEGUMENTARY: Denies rash, denies eczema. NEUROLOGICAL: Denies recent memory loss, no recent seizure activity. PSYCHIATRIC: Denies anxiety, denies depression. HEMATOLOGIC/LYMPHATIC: Denies anemia, denies enlarged lymph nodes. Past Medical History Past Medical History: Diabetes Mellitus, GERD/Reflux, Hypertension, Thyroid Disorder Additional Past Medical History / Comment(s): DIVERTICULOSIS History of Any Multi-Drug Resistant Organisms: None Reported Past Surgical History: Appendectomy, Bariatric Surgery, Joint Replacement, Orthopedic Surgery Additional Past Surgical History / Comment(s): GATRIC SLEEVE. BILAT TKA. COLONOSCOPY. EYELID SX. RHINOPLASTY. Back Surgery 09/03/20 Past Anesthesia/Blood Transfusion Reactions: Motion Sickness Past Psychological History: No Psychological Hx Reported Smoking Status: Former smoker, Vaper Past Alcohol Use History: Rare Additional Past Alcohol Use History / Comment(s): QUIT SMOKING CIGARETTES 1988-. Quit vaping Jul 2021 Past Drug Use History: None Reported - Past Family History Mother Family Medical History: No Reported History Sister(s) Family Medical History: Cancer Father Family Medical History: Cancer Medications and Allergies Home Medications Medication Instructions Recorded Confirmed Type Levothyroxine Sodium [Synthroid] 100 mcg PO DAILY 08/24/19 07/22/21 History Loratadine 10 mg PO DAILY 08/24/19 07/22/21 History Lisinopril [Zestril] 10 mg PO DAILY 08/25/19 07/22/21 History DULoxetine HCL [Cymbalta] 20 mg PO HS 07/10/21 07/22/21 History Fluticasone Nasal [place] [Flonase 1 spr EA NOSTRIL DAILY 07/10/21 07/22/21 History Nasal [place]] Gabapentin 800 mg PO TID 07/10/21 07/22/21 History buPROPion [Wellbutrin] 150 mg PO DAILY 07/10/21 07/22/21 History guaiFENesin [Mucinex] 600 mg PO BID PRN 07/10/21 07/22/21 History Ascorbic Acid [Vitamin C] 1,000 mg PO DAILY #60 tab 07/19/21 07/22/21 Rx Cholecalciferol [Vitamin D3 (25 100 mcg PO DAILY #120 tablet 07/19/21 07/22/21 Rx Mcg = 1000 Iu)] Omeprazole 20 mg PO DAILY #30 cap 07/19/21 07/22/21 Rx Zinc Sulfate [Orazinc] 220 mg PO DAILY #30 cap 07/19/21 07/22/21 Rx metFORMIN HCL [Glucophage] 500 mg PO BID 15 Days #30 tab 07/19/21 07/22/21 Rx Meclizine [Antivert] 25 mg PO TID PRN 07/22/21 07/22/21 History Allergies Allergy/AdvReac Type Severity Reaction Status Date / Time No Known Allergies Allergy Verified 07/22/21 22:44 Physical Exam Vitals: Vital Signs Temp Pulse Pulse Resp BP BP Pulse Ox 07/23/21 08:10 99 07/23/21 08:00 98.1 F 70 22 108/57 95 07/23/21 04:00 98.2 F 65 18 98/57 97 07/23/21 02:30 97.7 F 65 22 113/56 99 07/22/21 23:30 84 24 81/61 98 07/22/21 23:00 75 18 115/72 97 07/22/21 22:30 73 20 90/64 97 07/22/21 22:00 80 24 105/64 96 07/22/21 21:30 73 24 121/82 97 07/22/21 20:30 75 22 126/67 99 07/22/21 20:00 73 21 115/64 98 07/22/21 19:30 75 24 121/70 98 07/22/21 19:00 73 26 H 118/81 98 07/22/21 18:04 98.2 F 78 25 H 133/72 98 Intake and Output 07/22/21 07/23/21 07/23/21 22:59 06:59 14:59 Output Total 300 Balance -300 Output: Urine 300 Other: Weight 99.79 kg 99.79 kg GENERAL EXAM: Alert, 55-year-old gentleman, on 5 L nasal cannula, fairly comfortable in no apparent distress. HEAD: Normocephalic. EYES: Normal reaction of pupils, equal size. NOSE: Clear with pink turbinates. THROAT: No erythema or exudates. NECK: No masses, no JVD. CHEST: No chest wall deformity. LUNGS: Equal air entry with coarse bilateral crackles. CVS: S1 and S2 normal with no audible murmur, regular rhythm. ABDOMEN: No hepatosplenomegaly, normal bowel sounds, no guarding or rigidity. SPINE: No scoliosis or deformity SKIN: No rashes CENTRAL NERVOUS SYSTEM: No focal deficits, tone is normal in all 4 extremities. EXTREMITIES: There is no peripheral edema. No clubbing, no cyanosis. Peripheral pulses are intact. Results - Laboratory Findings CBC and BMP: 07/23/21 03:57 07/23/21 03:57 PT/INR, D-dimer PT 10.2 sec (9.0-12.0) 07/22/21 18:40 INR 1.0 (<1.2) 07/22/21 18:40 D-Dimer 6.06 mg/L FEU (<0.60) H 07/22/21 18:40 Abnormal lab findings: Abnormal Labs 07/22/21 07/22/21 07/22/21 18:40 18:40 18:40 WBC 12.6 H Neutrophils # 9.6 H APTT D-Dimer 6.06 H Sodium 134 L BUN 31 H Glucose 168 H POC Glucose (mg/dL) Total Protein 6.1 L Albumin 2.9 L 07/23/21 07/23/21 07/23/21 03:57 03:57 06:09 WBC Neutrophils # APTT 50.7 H D-Dimer Sodium 133 L BUN 31 H Glucose 173 H POC Glucose (mg/dL) 149 H Total Protein Albumin - Diagnostic Findings Chest x-ray: image reviewed CT scan - chest: image reviewed U/S of Legs: image reviewed Assessment and Plan Assessment: 1 Acute right lower lobe pulmonary embolism, left lower lobe DVT secondary to COVID-19 infection 2 Acute on chronic hypoxemic respiratory failure secondary to COVID-19 pneumonia, discharged from the hospital with home oxygen on 07/19/2021 3 Hypothyroidism 4 Gastroesophageal reflux disease 5 Diabetes mellitus 6 Hypertension 7 Diverticular disease 8 Morbid obesity with previous bariatric surgery 9 Previous tobacco dependence Plan: The patient was seen and evaluated Chest x-ray, CAT scan and Dopplers reviewed Continue on a heparin drip for now We'll transition to oral anticoagulant tomorrow Titrate down the FiO2 as tolerated The patient is worried he can't take care of himself at home alone We will consult social work, the patient follows with the [place] [facility] We will continue to follow and make further recommendations based on his clinical status I, the cosigning physician, performed a history & physical examination of the patient. Lungs sounds are coarse crackles bilaterally. Maintaining good O2 saturations in the 90s on 5 L/m per nasal cannula. I discussed the assessment and plan of care with my nurse practitioner, Tosin Espana. I attest to the above consultation as dictated by her. Time with Patient: Greater than 30
[2021-07-23 12:07] LABS: Glucose,Whole Blood 168 mg/dL (75-99)
[2021-07-23] MEDS: HEPARIN SOD,PORK IN 0.45% NACL 25,000 UNIT in 0.45% NACL 1 250ML.BAG IV SCH ×2 (12:16→23:18)
--- NOTE | 2021-07-23 12:34 | P.HPIM ---
History of Present Illness This is a pleasant 65 years old male with past medical history of Diabetes Mellitus, GERD, Hypertension, hypothyroidism, DIVERTICULOSIS Patient presents because of 10 days with dyspnea. She has, with pneumonia and she is currently at home on 4 L oxygen. Patient was in this facility from 07/10-07/19 for, with coughing 19 pneumonia and bilateral pulmonary infiltrates Same day he went home at night he started getting more short of breath which gradually get worse so decided to come to the emergency room. He notices that he is hypoxic in the 80s at home. Also patient feels generally weak but denies chest pain or leg pain or swelling. Occasional coughing. No GI or urinary symptoms Vitals stable, blood pressure is borderline CBC showed mild leukocytosis which is improved 12.5 down to 10.5, rest of CBC is unremarkable D-dimer is elevated 6.0 Sodium 133, rest of the BMP is unremarkable. Glucose is slightly elevated. Liver enzymes are unremarkable. Patient has negative troponin 3 with less than 0.012. EKG showing normal sinus rhythm at [address] with no significant [address]-T changes and QTC 435. CTA of the chest: Right lower lobe pulmonary embolism which appears new compared to old exam. Extensive bilateral pulmonary infiltrates consistent with multifocal pneumonia and appears worse than the last exam In the emergency room patient was started on heparin drip and pulmonary services consulted. Review of Systems CONSTITUTIONAL: No fever, no malaise, no fatigue. HEENT: No recent visual problems or hearing problems. Denied any sore throat. CARDIOVASCULAR: No orthopnea, PND, no palpitations, no syncope. PULMONARY: No chest wall tenderness , no hemoptysis. GASTROINTESTINAL: No diarrhea, no nausea, no vomiting, no abdominal pain. Normoactive bowel sounds. NEUROLOGICAL: No headaches, no weakness, no numbness. HEMATOLOGICAL: Denies any bleeding or petechiae. GENITOURINARY: Denies any burning micturition, frequency, or urgency. MUSCULOSKELETAL/RHEUMATOLOGICAL: Denies any joint pain, swelling, or any muscle pain. ENDOCRINE: Denies any polyuria or polydipsia. Past Medical History Past Medical History: Diabetes Mellitus, GERD/Reflux, Hypertension, Thyroid Disorder Additional Past Medical History / Comment(s): DIVERTICULOSIS History of Any Multi-Drug Resistant Organisms: None Reported Past Surgical History: Appendectomy, Bariatric Surgery, Joint Replacement, Orthopedic Surgery Additional Past Surgical History / Comment(s): GATRIC SLEEVE. BILAT TKA. COLONOSCOPY. EYELID SX. RHINOPLASTY. Back Surgery 09/03/20 Past Anesthesia/Blood Transfusion Reactions: Motion Sickness Past Psychological History: No Psychological Hx Reported Smoking Status: Former smoker, Vaper Past Alcohol Use History: Rare Additional Past Alcohol Use History / Comment(s): QUIT SMOKING CIGARETTES 1988-. Quit vaping Jul 2021 Past Drug Use History: None Reported - Past Family History Mother Family Medical History: No Reported History Sister(s) Family Medical History: Cancer Father Family Medical History: Cancer Medications and Allergies Home Medications Medication Instructions Recorded Confirmed Type Levothyroxine Sodium [Synthroid] 100 mcg PO DAILY 08/24/19 07/22/21 History Loratadine 10 mg PO DAILY 08/24/19 07/22/21 History Lisinopril [Zestril] 10 mg PO DAILY 08/25/19 07/22/21 History DULoxetine HCL [Cymbalta] 20 mg PO HS 07/10/21 07/22/21 History Fluticasone Nasal [place] [Flonase 1 spr EA NOSTRIL DAILY 07/10/21 07/22/21 History Nasal [place]] Gabapentin 800 mg PO TID 07/10/21 07/22/21 History buPROPion [Wellbutrin] 150 mg PO DAILY 07/10/21 07/22/21 History guaiFENesin [Mucinex] 600 mg PO BID PRN 07/10/21 07/22/21 History Ascorbic Acid [Vitamin C] 1,000 mg PO DAILY #60 tab 07/19/21 07/22/21 Rx Cholecalciferol [Vitamin D3 (25 100 mcg PO DAILY #120 tablet 07/19/21 07/22/21 Rx Mcg = 1000 Iu)] Omeprazole 20 mg PO DAILY #30 cap 07/19/21 07/22/21 Rx Zinc Sulfate [Orazinc] 220 mg PO DAILY #30 cap 07/19/21 07/22/21 Rx metFORMIN HCL [Glucophage] 500 mg PO BID 15 Days #30 tab 07/19/21 07/22/21 Rx Meclizine [Antivert] 25 mg PO TID PRN 07/22/21 07/22/21 History Allergies Allergy/AdvReac Type Severity Reaction Status Date / Time No Known Allergies Allergy Verified 07/22/21 22:44 Physical Exam Vitals: Vital Signs Temp Pulse Pulse Resp BP BP Pulse Ox 07/23/21 04:00 98.2 F 65 18 98/57 97 07/23/21 02:30 97.7 F 65 22 113/56 99 07/22/21 23:30 84 24 81/61 98 07/22/21 23:00 75 18 115/72 97 07/22/21 22:30 73 20 90/64 97 07/22/21 22:00 80 24 105/64 96 07/22/21 21:30 73 24 121/82 97 07/22/21 20:30 75 22 126/67 99 07/22/21 20:00 73 21 115/64 98 07/22/21 19:30 75 24 121/70 98 07/22/21 19:00 73 26 H 118/81 98 07/22/21 18:04 98.2 F 78 25 H 133/72 98 Intake and Output 07/22/21 07/22/21 07/23/21 14:59 22:59 06:59 Output Total 300 Balance -300 Output: Urine 300 Other: Weight 99.79 kg 99.79 kg GENERAL: The patient is alert and oriented x3, not in any acute distress. Well developed, well nourished. HEENT: Pupils are round and equally reacting to light. EOMI. No scleral icterus. No conjunctival pallor. Normocephalic, atraumatic. No pharyngeal erythema. No thyromegaly. CARDIOVASCULAR: S1 and S2 present. No murmurs, rubs, or gallops. -PULMONARY: Chest is clear to auscultation, no wheezing. Bilateral crackles. ABDOMEN: Soft, nontender, nondistended, normoactive bowel sounds. No palpable organomegaly. MUSCULOSKELETAL: No joint swelling or deformity. EXTREMITIES: No cyanosis, clubbing, or pedal edema. NEUROLOGICAL: Gross neurological examination did not reveal any focal deficits. SKIN: No rashes. No petechiae Results CBC & Chem 7: 07/23/21 03:57 07/23/21 03:57 Labs: Abnormal Lab Results - Last 24 Hours (Table) 07/22/21 07/22/21 07/22/21 Range/Units 18:40 18:40 18:40 WBC 12.6 H (3.8-10.6) k/uL Neutrophils # 9.6 H (1.3-7.7) k/uL APTT (22.0-30.0) sec D-Dimer 6.06 H (<0.60) mg/L FEU Sodium 134 L (137-145) mmol/L BUN 31 H (9-20) mg/dL Glucose 168 H (74-99) mg/dL POC Glucose (mg/dL) (75-99) mg/dL Total Protein 6.1 L (6.3-8.2) g/dL Albumin 2.9 L (3.5-5.0) g/dL 07/23/21 07/23/21 07/23/21 Range/Units 03:57 03:57 06:09 WBC (3.8-10.6) k/uL Neutrophils # (1.3-7.7) k/uL APTT 50.7 H (22.0-30.0) sec D-Dimer (<0.60) mg/L FEU Sodium 133 L (137-145) mmol/L BUN 31 H (9-20) mg/dL Glucose 173 H (74-99) mg/dL POC Glucose (mg/dL) 149 H (75-99) mg/dL Total Protein (6.3-8.2) g/dL Albumin (3.5-5.0) g/dL Thrombosis Risk Factor Assmnt - Choose All That Apply Any of the Below Risk Factors Present?: Yes Each Factor Represents 1 point: Obesity (BMI >25) Each Risk Factor Represents 2 Points: Age 61-74 years Other congenital or acquired thrombophilia - If yes, enter type in comment: No Thrombosis Risk Factor Assessment Total Risk Factor Score: 3 Thrombosis Risk Factor Assessment Level: Moderate Risk Assessment and Plan Assessment: Right lower lobe pulmonary embolism Bilateral Covid pneumonia Chronic hypoxic respiratory failure Increased inflammatory markers Diabetes mellitus Hypertension Hypothyroidism History of GERD History of diverticulosis Plan: This is a pleasant 65 years old male who presents with pulmonary embolism and bilateral covid pneumonia continue with heparin drip Continue with dexamethasone Continue with vitamin C, vitamin D and zinc Pulmonary consult Follow-up results for Doppler of the lower extremity Labs and medication were reviewed.. Continue same treatment. Continue with symptomatic treatment. Resume home medication. Monitor lytes and vitals. DVT and GI prophylaxis. Further recommendations depends on the clinical course of the patient DVT prophylaxis: heparin GI Prophylaxis: Pepcid PT/OT: Pending Prognosis is guarded
[2021-07-23 16:57] LABS: Glucose,Whole Blood 174 mg/dL (75-99)
[2021-07-23] MEDS ORDERED: DULoxetine HCL 20 MG CAPSULE.DR PO SCH (21:00)
[2021-07-23 21:09] LABS: Glucose,Whole Blood 167 mg/dL (75-99)
[2021-07-23] MEDS: MELATONIN 5 MG TABLET PO PRN (23:17)
[2021-07-24 06:01] LABS: Glucose,Whole Blood 146 mg/dL (75-99)
[2021-07-24] MEDS: INSULIN ASPART (NovoLOG) 100 UNIT/ML VIAL SQ SCH ×4 (06:38→22:09)
[2021-07-24] MEDS: LEVOTHYROXINE 100 MCG TAB PO SCH (06:38)
[2021-07-24] MEDS: CHOLECALCIFEROL 25 MCG (1000 IU) TABLET PO SCH (09:12)
[2021-07-24] MEDS: buPROPion 75 MG TAB PO SCH (09:12)
[2021-07-24] MEDS: LORATADINE 10 MG TAB PO SCH (09:12)
[2021-07-24] MEDS: lisinopriL 10 MG TAB PO SCH ×2 (09:12→19:38)
[2021-07-24] MEDS: ZINC SULFATE 220 MG CAP PO SCH (09:12)
[2021-07-24] MEDS: GABAPENTIN 400 MG CAP PO SCH ×3 (09:13→22:09)
[2021-07-24] MEDS: ASCORBIC ACID 500 MG TAB PO SCH (09:13)
[2021-07-24] MEDS: PANTOPRAZOLE 40 MG TABLET PO SCH (09:13)
[2021-07-24] MEDS: FLUTICASONE 50MCG/SPRAY NASAL 16GM EA NOSTRIL SCH (10:37)
[2021-07-24 11:45] LABS: Glucose,Whole Blood 204 mg/dL (75-99)
--- NOTE | 2021-07-24 13:39 | P.PN ---
Subjective Patient is admitted for pulmonary embolism. Patient is medically stable at this time. Patient the recent Covid 19 infection patient was discharged on 5 L infarction patient is only requiring 3 L at this time. Patient is on IV heparin which will be transitioned to Eliquis patient probably can be discharged with the is comparing of significant generalized weakness and there is known at home to take care of him. Patient will be discharged tomorrow. Constitutional: Denied any fatigue denied any fever. Cardio vascular: denied any chest pain, palpitations Gastrointestinal denied any nausea vomiting Pulmonary: Denied any shortness of breath cough Neurologic denied any new focal deficits All inpatient medications were reviewed and appropriate changes in these medications as dictated in the interval history and assessment and plan. PHYSICAL EXAMINATION: GENERAL: The patient is alert and oriented x3, not in any acute distress. Well developed, well nourished. HEENT: Pupils are round and equally reacting to light. EOMI. No scleral icterus. No conjunctival pallor. Normocephalic, atraumatic. No pharyngeal erythema. No thyromegaly. CARDIOVASCULAR: S1 and S2 present. No murmurs, rubs, or gallops. PULMONARY: Chest is clear to auscultation, no wheezing or crackles. ABDOMEN: Soft, nontender, nondistended, normoactive bowel sounds. No palpable organomegaly. MUSCULOSKELETAL: No joint swelling or deformity. EXTREMITIES: No cyanosis, clubbing, or pedal edema. NEUROLOGICAL: Gross neurological examination did not reveal any focal deficits. SKIN: No rashes. Assessment and Plan Assessment: Right lower lobe pulmonary embolism patient will be switched to Eliquis discontinue IV heparin patient will be discharged tomorrow patient doesn't have any right ventricle strain Bilateral Covid pneumonia, continue with the Decadron improving patient is only on 3 L of oxygen at this time as opposed to 5 L he was discharged on continue with Covid vitamins Diabetes mellitus Hypertension Hypothyroidism -Gastroesophageal reflux disease Objective - Vital Signs Vital signs: Vital Signs Temp 98.7 F 07/24/21 08:00 Pulse 80 07/24/21 12:00 Resp 16 07/24/21 12:00 BP 95/50 07/24/21 12:00 Pulse Ox 93 L 07/24/21 12:00 Intake & Output 07/23/21 07/24/21 07/24/21 18:59 06:59 18:59 Intake Total 249.073 556.431 360 Output Total 800 575 700 Balance -550.927 -18.569 -340 Intake: Intake, IV Titration 249.073 316.431 Amount Heparin Sod,Pork in 0.45% 249.073 316.431 NaCl 25,000 unit In 0.45 % NaCl 1 250ml.bag @ 18 UNITS/KG/HR 17.962 mls/hr IV .[id number] [facility] Rx#: [id number] Oral 240 360 Output: Urine 800 575 700 Other: Voiding Method Toilet Urinal # Voids 2 - Labs CBC & Chem 7: 07/23/21 03:57 07/23/21 03:57 Labs: Abnormal Lab Results - Last 24 Hours (Table) 07/23/21 07/23/21 07/24/21 Range/Units 16:55 21:07 04:21 APTT 41.5 H (22.0-30.0) sec POC Glucose (mg/dL) 174 H 167 H (75-99) mg/dL 07/24/21 07/24/21 07/24/21 Range/Units 05:56 11:20 11:34 APTT 47.5 H (22.0-30.0) sec POC Glucose (mg/dL) 146 H 204 H (75-99) mg/dL
[2021-07-24] MEDS: APIXABAN 5 MG TAB PO SCH ×2 (14:01→22:09)
[2021-07-24 16:42] LABS: Glucose,Whole Blood 117 mg/dL (75-99)
--- NOTE | 2021-07-24 17:21 | P.PN ---
Subjective Progress Note Date: 07/24/21 Principal diagnosis: Shortness of breath This is a 65-year-old male patient with history of hypertension, diabetes mellitus, gastroesophageal reflux is, hypothyroidism, diverticular disease, previous bariatric surgery for morbid obesity, previous tobacco dependence. He had recently been infected with coronavirus and had developed acute hypoxemic respiratory failure secondary to COVID-19 pneumonia. He was discharged from here on home oxygen and Decadron. He presented back to the emergency room on 07/21/2021 for hyperglycemia. He presented again to the emergency room last evening 07/22/2021 with complaints of increasing shortness of breath. He was found to have an acute right lower lobe pulmonary embolism that was new compared to previous exam. He has continued extensive bilateral pulmonary infiltrates consistent with multifocal pneumonia. He is also found to have a DVT in the left lower extremity. He was initiated on a heparin drip. He is seen today in the emergency department. He is currently laying comfortably on the stretcher. Awake and alert in no acute distress. Still somewhat dyspneic on minimal exertion. Dyspneic with conversation. He is maintaining O2 saturations up to 99% on 5 L nasal cannula. Afebrile. Hemodynamically stable. On 07/24/2021 patient seen in follow-up on selective care unit, patient is currently down to 3 L of oxygen, pulse ox is 93%, he does have exertional dyspnea, but appears to be in no acute respiratory distress, complaints of chest discomfort, no complaints of worsening cough. He states that he is concerned about going home to soon, because he has not been fully functional yet, and having difficulty preparing his meals at home. His had no fever or chills, hemodynamically has been stable. Patient is currently on Eliquis for newly diagnosed DVT in his left leg and right lower lobe pulmonary embolism nose during this admission. No new labs today. His troponins were negative 2 at less than 0.012, proBNP was normal at 189, hemodynamically has been stable, no complaints of chest pain, no hemoptysis Objective - Vital Signs Vital signs: Vital Signs Temp 98.1 F 07/24/21 16:00 Pulse 80 07/24/21 16:00 Resp 18 07/24/21 16:00 BP 108/65 07/24/21 16:00 Pulse Ox 93 L 07/24/21 16:00 Intake & Output 07/23/21 07/24/21 07/24/21 18:59 06:59 18:59 Intake Total 249.073 556.431 960 Output Total 521 949 7981 Balance -550.927 -18.569 -390 Intake: Intake, IV Titration 249.073 316.431 Amount Heparin Sod,Pork in 0.45% 249.073 316.431 NaCl 25,000 unit In 0.45 % NaCl 1 250ml.bag @ 18 UNITS/KG/HR 17.962 mls/hr IV .[id number] [facility] Rx#: [id number] Oral 240 960 Output: Urine 335 152 0041 Other: Voiding Method Toilet Urinal # Voids 2 - Exam GENERAL EXAM: Alert, very pleasant, 65-year-old white male, on 3 L of oxygen with pulse ox of 93% comfortable in no apparent distress. HEAD: Normocephalic/atraumatic. EYES: Normal reaction of pupils, equal size. Conjunctiva pink, sclera white. NOSE: Clear with pink turbinates. THROAT: No erythema or exudates. NECK: No masses, no JVD, no thyroid enlargement, no adenopathy. CHEST: No chest wall deformity. Symmetrical expansion. LUNGS: Equal air entry with no crackles, wheeze, rhonchi or dullness. CVS: Regular rate and rhythm, normal S1 and S2, no gallops, no murmurs, no rubs ABDOMEN: Soft, nontender. No hepatosplenomegaly, normal bowel sounds, no guarding or rigidity. EXTREMITIES: No clubbing, no edema, no cyanosis, 2+ pulses and upper and lower extremities. MUSCULOSKELETAL: Muscle strength and tone normal. SPINE: No scoliosis or deformity SKIN: No rashes CENTRAL NERVOUS SYSTEM: Alert and oriented -3. No focal deficits, tone is normal in all 4 extremities. PSYCHIATRIC: Alert and oriented -3. Appropriate affect. Intact judgment and insight. - Labs CBC & Chem 7: 07/23/21 03:57 07/23/21 03:57 Labs: Abnormal Lab Results - Last 24 Hours (Table) 07/23/21 07/24/21 07/24/21 Range/Units 21:07 04:21 05:56 APTT 41.5 H (22.0-30.0) sec POC Glucose (mg/dL) 167 H 146 H (75-99) mg/dL 07/24/21 07/24/21 07/24/21 Range/Units 11:20 11:34 16:40 APTT 47.5 H (22.0-30.0) sec POC Glucose (mg/dL) 204 H 117 H (75-99) mg/dL Assessment and Plan Plan: Assessment: #1. Acute right lower lobe pulmonary embolism and left lower leg DVT secondary to recent COVID-19 infection with pneumonia. Patient was started on Eliquis #2. Acute on chronic hypoxic respiratory failure secondary to COVID-19 pneumonia, discharged home from the hospital on 07/19/2021, currently improving, patient is down to 3 L of oxygen #3. Hypothyroidism #4. GERD/reflux #5. Diabetes mellitus type 2 #6. Hypertension #7. Diverticular disease #8. Morbid obesity with previous bariatric surgery #9. Previous history of tobacco dependence Plan: Continue current medical treatment Patient has been started on Eliquis Hemodynamically stable Oxygenation is improved, patient is down to 3 L of supplemental oxygen Still has exertional dyspnea, but no acute distress, encouraged the patient to sit up in the chair Patient can be considered for discharge home tomorrow Social work to evaluate whether he qualifies for any assistance at home with visiting nurses or any other assistance to help him with his ADLs Encouraged the patient to sit up in the chair, and ambulate I performed a history & physical examination of the patient and discussed their management with my nurse practitioner, Uma Bess. I reviewed the nurse practitioner's note and agree with the documented findings and plan of care. Lung sounds are positive for clear breath sounds throughout the lung gil. The findings and the impression was discussed with the patient. I attest to the documentation by the nurse practitioner. Time with Patient: Less than 30
[2021-07-24 19:54] LABS: Glucose,Whole Blood 163 mg/dL (75-99)
[2021-07-24] MEDS: DULoxetine HCL 20 MG CAPSULE.DR PO SCH (22:09)
[2021-07-24] MEDS: MELATONIN 5 MG TABLET PO PRN (23:06)
[2021-07-25] MEDS: LEVOTHYROXINE 100 MCG TAB PO SCH (06:33)
[2021-07-25] MEDS: INSULIN ASPART (NovoLOG) 100 UNIT/ML VIAL SQ SCH ×2 (06:33→12:17)
[2021-07-25] MEDS: PANTOPRAZOLE 40 MG TABLET PO SCH (09:35)
[2021-07-25] MEDS: LORATADINE 10 MG TAB PO SCH (09:36)
[2021-07-25] MEDS: ASCORBIC ACID 500 MG TAB PO SCH (09:36)
[2021-07-25] MEDS: APIXABAN 5 MG TAB PO SCH (09:36)
[2021-07-25] MEDS: GABAPENTIN 400 MG CAP PO SCH ×2 (09:36→15:46)
[2021-07-25] MEDS: CHOLECALCIFEROL 25 MCG (1000 IU) TABLET PO SCH (09:36)
[2021-07-25] MEDS: ZINC SULFATE 220 MG CAP PO SCH (09:36)
[2021-07-25] MEDS: buPROPion 75 MG TAB PO SCH (09:36)
[2021-07-25] MEDS: FLUTICASONE 50MCG/SPRAY NASAL 16GM EA NOSTRIL SCH (09:37)
[2021-07-25 09:49] LABS: Glucose,Whole Blood 259 mg/dL (75-99)
[2021-07-25 10:39] LABS: African American GFR (CKD) >90 (>60 ml/min/1.73 sqM); Anion Gap 6 mmol/L; Blood Urea Nitrogen 24 mg/dL (9-20); Calcium 9.3 mg/dL (8.4-10.2); Carbon Dioxide 24 mmol/L (22-30); Chloride 103 mmol/L (98-107); Glucose 181 mg/dL (74-99); Non-African American GFR(CKD) >90 (>60 ml/min/1.73 sqM); Potassium 4.9 mmol/L (3.5-5.1); Sodium 133 mmol/L (137-145)
--- NOTE | 2021-07-25 11:08 | P.PN ---
Subjective Progress Note Date: 07/25/21 Principal diagnosis: Recent Coumadin infection, pulmonary embolism This is a 65-year-old male patient with history of hypertension, diabetes mellitus, gastroesophageal reflux is, hypothyroidism, diverticular disease, previous bariatric surgery for morbid obesity, previous tobacco dependence. He had recently been infected with coronavirus and had developed acute hypoxemic respiratory failure secondary to COVID-19 pneumonia. He was discharged from here on home oxygen and Decadron. He presented back to the emergency room on 07/21/2021 for hyperglycemia. He presented again to the emergency room last evening 07/22/2021 with complaints of increasing shortness of breath. He was found to have an acute right lower lobe pulmonary embolism that was new compared to previous exam. He has continued extensive bilateral pulmonary infiltrates consistent with multifocal pneumonia. He is also found to have a DVT in the left lower extremity. He was initiated on a heparin drip. He is seen today in the emergency department. He is currently laying comfortably on the stretcher. Awake and alert in no acute distress. Still somewhat dyspneic on minimal exertion. Dyspneic with conversation. He is maintaining O2 saturations up to 99% on 5 L nasal cannula. Afebrile. Hemodynamically stable. On 07/24/2021 patient seen in follow-up on selective care unit, patient is currently down to 3 L of oxygen, pulse ox is 93%, he does have exertional dyspnea, but appears to be in no acute respiratory distress, complaints of chest discomfort, no complaints of worsening cough. He states that he is concerned about going home to soon, because he has not been fully functional yet, and having difficulty preparing his meals at home. His had no fever or chills, hemodynamically has been stable. Patient is currently on Eliquis for newly diagnosed DVT in his left leg and right lower lobe pulmonary embolism nose during this admission. No new labs today. His troponins were negative 2 at less than 0.012, proBNP was normal at 189, hemodynamically has been stable, no complaints of chest pain, no hemoptysis The patient is seen today 07/25/2021 in follow-up on the selective care unit. He is currently laying flat in bed. Awake and alert in no acute distress. He is maintaining O2 saturations in the 90s on 3 L/m per nasal cannula. No worsening shortness of breath, cough or congestion. He's been afebrile. Hemodynamically stable. Sodium 133. Potassium 4.9. Creatinine 0.84. Glucose 181. He is continued on anticoagulation the form of Eliquis. Remains on vitamin supplements. Objective - Vital Signs Vital signs: Vital Signs Temp 97.9 F 07/25/21 04:00 Pulse 68 07/25/21 04:00 Resp 18 07/25/21 04:00 BP 93/54 07/25/21 04:00 Pulse Ox 93 L 07/25/21 08:32 Intake & Output 07/24/21 07/25/21 07/25/21 18:59 06:59 18:59 Intake Total 960 890 480 Output Total 1350 1575 350 Balance -390 -685 130 Intake: Oral 960 890 480 Output: Urine 1350 1575 350 Other: Voiding Method Toilet Urinal # Voids 3 - Exam GENERAL EXAM: Alert, 65-year-old male patient, on 3 L of oxygen with pulse ox of 93% comfortable in no apparent distress. HEAD: Normocephalic/atraumatic. EYES: Normal reaction of pupils, equal size. Conjunctiva pink, sclera white. NOSE: Clear with pink turbinates. THROAT: No erythema or exudates. NECK: No masses, no JVD, no thyroid enlargement, no adenopathy. CHEST: No chest wall deformity. Symmetrical expansion. LUNGS: Equal air entry with no crackles, wheeze, rhonchi or dullness. CVS: Regular rate and rhythm, normal S1 and S2, no gallops, no murmurs, no rubs ABDOMEN: Soft, nontender. No hepatosplenomegaly, normal bowel sounds, no guarding or rigidity. EXTREMITIES: No clubbing, no edema, no cyanosis, 2+ pulses and upper and lower extremities. MUSCULOSKELETAL: Muscle strength and tone normal. SPINE: No scoliosis or deformity SKIN: No rashes CENTRAL NERVOUS SYSTEM: No focal deficits, tone is normal in all 4 extremities. PSYCHIATRIC: Alert and oriented -3. Appropriate affect. Intact judgment and insight. - Labs CBC & Chem 7: 07/23/21 03:57 07/25/21 09:47 Labs: Abnormal Lab Results - Last 24 Hours (Table) 07/24/21 07/24/21 07/24/21 Range/Units 11:20 11:34 16:40 APTT 47.5 H (22.0-30.0) sec Sodium (137-145) mmol/L BUN (9-20) mg/dL Glucose (74-99) mg/dL POC Glucose (mg/dL) 204 H 117 H (75-99) mg/dL 07/24/21 07/25/21 07/25/21 Range/Units 19:53 06:06 09:47 APTT (22.0-30.0) sec Sodium 133 L (137-145) mmol/L BUN 24 H (9-20) mg/dL Glucose 181 H (74-99) mg/dL POC Glucose (mg/dL) 163 H 259 H (75-99) mg/dL Assessment and Plan Assessment: 1 Acute right lower lobe pulmonary embolism, left lower lobe DVT secondary to COVID-19 infection. Initiated on Eliquis 2 Acute on chronic hypoxemic respiratory failure secondary to COVID-19 pneumonia, discharged from the hospital with home oxygen on 07/19/2021 3 Hypothyroidism 4 Gastroesophageal reflux disease 5 Diabetes mellitus 6 Hypertension 7 Diverticular disease 8 Morbid obesity with previous bariatric surgery 9 Previous tobacco dependence Plan: The patient was seen and evaluated Stable from the pulmonary standpoint Continue Eliquis, home oxygen if needed Discharge planning per medicine We will see as needed I, the cosigning physician, performed a history & physical examination of the patient. Lungs sounds are coarse crackles bilaterally. Maintaining O2 saturations in the 90s on 3 L/m per nasal cannula. I discussed the assessment and plan of care with my nurse practitioner, Tosin Espana. I attest to the above note as dictated by her.
[2021-07-25 11:58] LABS: Glucose,Whole Blood 224 mg/dL (75-99)
[2021-07-25 12:40] VITALS: BP 110/71; PULSE 78; RESP 16; TEMP 97.2
[2021-07-25 16:52] LABS: Glucose,Whole Blood 113 mg/dL (75-99)
--- NOTE | 2021-07-26 17:54 | P.DS ---
Providers Date of admission: 07/22/21 22:14 Attending physician: Dudley Danielson Consults: 07/22/21 22:15 Consult Physician Urgent Consulting Provider: Ene Newsome Consult Reason/Comments: acute/chronic resp failure, worsening covid pna, acute pe Do you want consulting provider notified?: Yes Primary care physician: [facility] Course: Final Diagnosis Right lower lobe pulmonary embolism, no evidence for right heart strain DC on eliquis DVT left lower extremity Elevated Ddimer secondary to above Bilateral Covid pneumonia, improving was DC'd on 5L previous admission down to 3L oxygen Leukocytosis secondary to above Hyponatremia secondary to poor oral intake Diabetes mellitus Hypertension Hypothyroidism Gastroesophageal reflux disease Discharge Disposition Patient stable for discharge from medical and pulmonary services. He does not qualify for discharge to rehab as he is able to ambulate well. He'll be discharged on home oxygen that was very similar prior to admission. Hospital course Patient medicine Hospital from home with shortness of breath. He was hospitalized previously from July 10 to the for Covid pneumonia and treated with Decadron and was discharged home on Decadron as well as oxygen on 4-5 L nasal cannula. He has been able to get up and also to make his own food and he has become short of breath and turning oxygen up to 5 L without improvement. He says also his pulse ox has dropped into the 70s and ambulatory he has home care coming in 3 times a week and he states that it is not enough he has not been eating or drinking well and due to this he was found to be hyponatremic on admission. Patient is not an anticoagulation denies chest pain. He has a past medical history significant for diabetes, hypertension, hypothyroidism. D-dimer on admission was found to be 6.06, white count 12.6, sodium 134, BUN 31, creatinine 0.77, glucose 160s, troponins negative 2, BNP 189, liver enzymes unremarkable. CT angiography completed shows extensive bila teral pulmonary voltage consistent with multifocal pneumonia with right lower lobe pulmonary embolism which appears new compared to old exam. There is no evidence of aneurysm or dissection and no evidence of right heart strain. Venous Doppler shows right leg negative for DVT in left leg appears positive for occluding DVT in the Vein to distal popliteal vein. However there is minimal edema, positive pulses bilateral dorsalis pedis pulses and popliteal. Patient is remained afebrile, heart rate 70, blood pressure 110/70 193 and 95%. 07/26/2021 Patient stable for discharge from pulmonary medical services. He was discharged home on oral eliquis for acute DVT and PE and he was able to weaned down to 3L Nasal cannula. Labs today show sodium 133 to stable, potassium 4.9, BUN 24, creatinine 2.4, blood sugar 113, calcium 9.3. We'll repeat labs in 2-3 days. Patient denies any chest pain, he does have shortness of breath with exertion, he denies any leg pain. He denies nausea vomiting diarrhea. Feels okay and will return home on oxygen. Please see medication reconciliation for list of current medications. Thank you for allowing us to participate in the care of this patient. Patient Condition at Discharge: Fair Plan - Discharge Summary Discharge Rx Participant: Yes New Discharge Prescriptions: New Apixaban [Eliquis Starter Pack (for VTE)] 5 - 10 mg PO DIRECTED 30 Days #1 each Melatonin 5 mg PO HS PRN tablet PRN Reason: Insomnia Continue Levothyroxine Sodium [Synthroid] 100 mcg PO DAILY Loratadine 10 mg PO DAILY Zinc Sulfate [Orazinc] 220 mg PO DAILY #30 cap Cholecalciferol [Vitamin D3 (25 Mcg = 1000 Iu)] 100 mcg PO DAILY #120 tablet guaiFENesin [Mucinex] 600 mg PO BID PRN PRN Reason: Cough buPROPion [Wellbutrin] 150 mg PO DAILY Gabapentin 800 mg PO TID DULoxetine HCL [Cymbalta] 20 mg PO HS Fluticasone Nasal [place] [Flonase Nasal [place]] 1 spr EA NOSTRIL DAILY Ascorbic Acid [Vitamin C] 1,000 mg PO DAILY #60 tab metFORMIN HCL [Glucophage] 500 mg PO BID 15 Days #30 tab Omeprazole 20 mg PO DAILY #30 cap Meclizine [Antivert] 25 mg PO TID PRN PRN Reason: Vertigo Discontinued Lisinopril [Zestril] 10 mg PO DAILY Discharge Medication List Levothyroxine Sodium [Synthroid] 100 mcg PO DAILY 08/24/19 [History] Loratadine 10 mg PO DAILY 08/24/19 [History] DULoxetine HCL [Cymbalta] 20 mg PO HS 07/10/21 [History] Fluticasone Nasal [place] [Flonase Nasal [place]] 1 spr EA NOSTRIL DAILY 07/10/21 [History] Gabapentin 800 mg PO TID 07/10/21 [History] buPROPion [Wellbutrin] 150 mg PO DAILY 07/10/21 [History] guaiFENesin [Mucinex] 600 mg PO BID PRN 07/10/21 [History] Ascorbic Acid [Vitamin C] 1,000 mg PO DAILY #60 tab 07/19/21 [Rx] Cholecalciferol [Vitamin D3 (25 Mcg = 1000 Iu)] 100 mcg PO DAILY #120 tablet 07/19/21 [Rx] Omeprazole 20 mg PO DAILY #30 cap 07/19/21 [Rx] Zinc Sulfate [Orazinc] 220 mg PO DAILY #30 cap 07/19/21 [Rx] metFORMIN HCL [Glucophage] 500 mg PO BID 15 Days #30 tab 07/19/21 [Rx] Meclizine [Antivert] 25 mg PO TID PRN 07/22/21 [History] Apixaban [Eliquis Starter Pack (for VTE)] 5 - 10 mg PO DIRECTED 30 Days #1 each 07/25/21 [Rx] Melatonin 5 mg PO HS PRN tablet 07/25/21 [Rx] Follow up Appointment(s)/Referral(s): Residential Home,Health [NON-STAFF] - [facility],Clinic [Primary Care Provider] - 1-2 days Ambulatory/Diagnostic Orders: Basic Metabolic Panel [LAB.AMB] Time Frame: 3 Days, Location: None Selected Patient Instructions/Handouts: Pulmonary Embolism (DC), Deep Vein Thrombosis (DC) Discharge Disposition: TRANSFER TO SNF/ECF
== END 2021-07-25 17:48 | disposition home health service (06) | DRG 177 ==
LOC: EC 17:40 → 3SCARD 22:14
PROVIDERS: ADMIT Hospitalist; ATTEND Hospitalist
DX: U07.1 COVID-19 (principal); I26.99 Other pulmonary embolism without acute cor pulmonale; J96.21 Acute and chronic respiratory failure with hypoxia; J12.82 Pneumonia due to coronavirus disease 2019; E87.1 Hypo-osmolality and hyponatremia; I82.432 Acute embolism and thrombosis of left popliteal vein; I82.462 Acute embolism and thrombosis of left calf muscular vein; E11.65 Type 2 diabetes mellitus with hyperglycemia; E66.01 Morbid (severe) obesity due to excess calories; E83.42 Hypomagnesemia; I10 Essential (primary) hypertension; E03.9 Hypothyroidism, unspecified; K21.9 Gastro-esophageal reflux disease without esophagitis; K57.90 Diverticulosis of intestine, part unspecified, without perforation or abscess without bleeding; Z68.29 Body mass index [BMI] 29.0-29.9, adult; Z79.84 Long term (current) use of oral hypoglycemic drugs; Z79.890 Hormone replacement therapy; Z79.899 Other long term (current) drug therapy; Z98.84 Bariatric surgery status; Z87.891 Personal history of nicotine dependence; Z90.49 Acquired absence of other specified parts of digestive tract; Z87.19 Personal history of other diseases of the digestive system; Z96.653 Presence of artificial knee joint, bilateral; Z87.39 Personal history of other diseases of the musculoskeletal system and connective tissue; Z87.09 Personal history of other diseases of the respiratory system; Z98.890 Other specified postprocedural states; Z80.9 Family history of malignant neoplasm, unspecified
CPT/HCPCS: 36415; 71046; 71275; 80048; 80053; 83605; 83735; 83880; 84484; 85025; 85379; 85610; 85730; 93005; 93970; 94760; 99285

== ENCOUNTER 2021-07-28 18:06 | Inpatient (IN) | payer OTHER ==
--- NOTE | 2021-07-28 18:14 | ED ---
General Adult HPI - General Chief complaint: Shortness of Breath Stated complaint: HU[place] Time Seen by Provider: 07/28/21 18:08 Source: patient Mode of arrival: EMS Limitations: no limitations - History of Present Illness Initial comments: Patient presents to the ED by ambulance for evaluation. Patient was recently discharged from the hospital after being admitted for Covid pneumonia and pulmonary embolism. Patient states that he was discharged home on supplemental oxygen therapy, as well as Eliquis anticoagulation therapy. Patient states that he has returned to the ED because he has been unable to care for himself at home. Patient states that he "begged not to be discharged home" when he was discharged home from the hospital 3 days ago. Patient states that he has been getting very lightheaded when attempting to ambulate at home, and he also states that his oxygen saturation drops with ambulation at home. Patient admits to continued dyspnea and cough. Patient denies having any pain, trauma or injury, fever or chills, headache, focal numbness/weakness/neuro deficit, chest pain, palpitations, syncope, abdominal pain, nausea/vomiting/diarrhea, bloody or melanotic stool, dysuria or urinary symptoms, leg or calf swelling or pain, or any other symptoms or complaints. - Related Data Home Medications Medication Instructions Recorded Confirmed Levothyroxine Sodium [Synthroid] 100 mcg PO DAILY 08/24/19 07/22/21 Loratadine 10 mg PO DAILY 08/24/19 07/22/21 DULoxetine HCL [Cymbalta] 20 mg PO HS 07/10/21 07/22/21 Fluticasone Nasal [place] [Flonase 1 spr EA NOSTRIL DAILY 07/10/21 07/22/21 Nasal [place]] Gabapentin 800 mg PO TID 07/10/21 07/22/21 buPROPion [Wellbutrin] 150 mg PO DAILY 07/10/21 07/22/21 guaiFENesin [Mucinex] 600 mg PO BID PRN 07/10/21 07/22/21 Meclizine [Antivert] 25 mg PO TID PRN 07/22/21 07/22/21 Previous Rx's Medication Instructions Recorded Ascorbic Acid [Vitamin C] 1,000 mg PO DAILY #60 tab 07/19/21 Cholecalciferol [Vitamin D3 (25 100 mcg PO DAILY #120 tablet 07/19/21 Mcg = 1000 Iu)] Omeprazole 20 mg PO DAILY #30 cap 07/19/21 Zinc Sulfate [Orazinc] 220 mg PO DAILY #30 cap 07/19/21 metFORMIN HCL [Glucophage] 500 mg PO BID 15 Days #30 tab 07/19/21 Apixaban [Eliquis Starter Pack 5 - 10 mg PO DIRECTED 30 Days 07/25/21 (for VTE)] #1 each Melatonin 5 mg PO HS PRN tablet 07/25/21 Allergies Allergy/AdvReac Type Severity Reaction Status Date / Time No Known Allergies Allergy Verified 07/22/21 22:44 Review of Systems ROS Statement: Those systems with pertinent positive or pertinent negative responses have been documented in the HPI. ROS Other: All systems not noted in ROS Statement are negative. Past Medical History Past Medical History: Diabetes Mellitus, GERD/Reflux, Hypertension, Thyroid Disorder Additional Past Medical History / Comment(s): DIVERTICULOSIS History of Any Multi-Drug Resistant Organisms: None Reported Past Surgical History: Appendectomy, Bariatric Surgery, Joint Replacement, Orthopedic Surgery Additional Past Surgical History / Comment(s): GATRIC SLEEVE. BILAT TKA. COLONOSCOPY. EYELID SX. RHINOPLASTY. Back Surgery 09/03/20 Past Anesthesia/Blood Transfusion Reactions: Motion Sickness Past Psychological History: No Psychological Hx Reported Smoking Status: Former smoker, Vaper Past Alcohol Use History: Rare Past Drug Use History: None Reported - Past Family History Mother Family Medical History: No Reported History Sister(s) Family Medical History: Cancer Father Family Medical History: Cancer General Exam Limitations: no limitations General appearance: alert, in no apparent distress Head exam: Present: atraumatic, normocephalic Eye exam: Present: normal appearance, EOMI ENT exam: Present: mucous membranes moist Neck exam: Present: other (Trachea is in midline) Respiratory exam: Present: normal lung sounds bilaterally. Absent: respiratory distress, wheezes, rales, rhonchi, stridor Cardiovascular Exam: Present: regular rate, normal rhythm, normal heart sounds, other (Normal radial pulses bilaterally) GI/Abdominal exam: Present: soft. Absent: distended, tenderness, guarding Extremities exam: Absent: tenderness, pedal edema, calf tenderness Neurological exam: Present: alert, oriented X3, CN II-XII intact. Absent: motor sensory deficit Psychiatric exam: Present: normal affect, normal mood Skin exam: Present: warm, dry, intact, normal color Course Vital Signs 07/28/21 07/28/21 07/28/21 18:09 18:52 19:54 Temperature 98.1 F Pulse Rate 103 H 82 Respiratory 24 16 Rate Blood Pressure 108/71 93/50 O2 Sat by Pulse 96 94 L Oximetry - Reevaluation(s) Reevaluation #1: 07/28/21 20:24 Patient denies development of any new symptoms while in the ED. patient remains alert and breathing comfortable. Patient is aware of his test results, and he agrees with hospital admission at this time. Patient states that he does not feel that he can care for himself at home in his current condition. 07/28/21 20:27 Case, H&P and test results were discussed with WEATHER OBSERVER Lorri Parson. She accepts admission on behalf of herself and Dr. Bowser. She agrees with pulmonology consultation. She has no further recommendations at this time. Medical Decision Making - Medical Decision Making Patient has returned to the ED stating that he is unable to care for himself at home. Patient was recently discharged home from the hospital after being diagnosed with Covid pneumonia and pulmonary embolism. Patient has been breathing comfortably in the ED. Will admit the patient to the hospital for further evaluation and eventual placement given that the patient states that he is unable to care for himself at home. WEATHER OBSERVER Lorri Parson has accepted hospital admission. - Lab Data Result diagrams: 07/28/21 19:04 07/28/21 19:04 Lab Results 07/28/21 07/28/21 07/28/21 Range/Units 19:04 19:04 19:04 WBC 7.4 (3.8-10.6) k/uL RBC 4.60 (4.30-5.90) m/uL Hgb 13.4 (13.0-17.5) gm/dL Hct 40.8 (39.0-53.0) % MCV 88.7 (80.0-100.0) fL MCH 29.0 (25.0-35.0) pg MCHC 32.8 (31.0-37.0) g/dL RDW 12.9 (11.5-15.5) % Plt Count 225 (150-450) k/uL MPV 7.1 Neutrophils % 63 % Lymphocytes % 24 % Monocytes % 7 % Eosinophils % 3 % Basophils % 1 % Neutrophils # 4.6 (1.3-7.7) k/uL Lymphocytes # 1.8 (1.0-4.8) k/uL Monocytes # 0.5 (0-1.0) k/uL Eosinophils # 0.3 (0-0.7) k/uL Basophils # 0.1 (0-0.2) k/uL PT 10.1 (9.0-12.0) sec INR 0.9 (<1.2) APTT 26.1 (22.0-30.0) sec Sodium 137 (137-145) mmol/L Potassium 4.8 (3.5-5.1) mmol/L Chloride 106 (98-107) mmol/L Carbon Dioxide 24 (22-30) mmol/L Anion Gap 7 mmol/L BUN 25 H (9-20) mg/dL Creatinine 0.99 (0.66-1.25) mg/dL Est GFR (CKD-EPI)AfAm >90 (>60 ml/min/1.73 sqM) Est GFR (CKD-EPI)NonAf 81 (>60 ml/min/1.73 sqM) Glucose 200 H (74-99) mg/dL Plasma Lactic Acid Brendan (0.7-2.0) mmol/L Calcium 8.8 (8.4-10.2) mg/dL Magnesium 1.8 (1.6-2.3) mg/dL Total Bilirubin 0.3 (0.2-1.3) mg/dL AST 18 (17-59) U/L ALT 27 (4-49) U/L Alkaline Phosphatase 83 (38-126) U/L Troponin I (0.000-0.034) ng/mL NT-Pro-B Natriuret Pep pg/mL Total Protein 6.1 L (6.3-8.2) g/dL Albumin 3.0 L (3.5-5.0) g/dL 07/28/21 07/28/21 07/28/21 Range/Units 19:04 19:04 19:04 WBC (3.8-10.6) k/uL RBC (4.30-5.90) m/uL Hgb (13.0-17.5) gm/dL Hct (39.0-53.0) % MCV (80.0-100.0) fL MCH (25.0-35.0) pg MCHC (31.0-37.0) g/dL RDW (11.5-15.5) % Plt Count (150-450) k/uL MPV Neutrophils % % Lymphocytes % % Monocytes % % Eosinophils % % Basophils % % Neutrophils # (1.3-7.7) k/uL Lymphocytes # (1.0-4.8) k/uL Monocytes # (0-1.0) k/uL Eosinophils # (0-0.7) k/uL Basophils # (0-0.2) k/uL PT (9.0-12.0) sec INR (<1.2) APTT (22.0-30.0) sec Sodium (137-145) mmol/L Potassium (3.5-5.1) mmol/L Chloride (98-107) mmol/L Carbon Dioxide (22-30) mmol/L Anion Gap mmol/L BUN (9-20) mg/dL Creatinine (0.66-1.25) mg/dL Est GFR (CKD-EPI)AfAm (>60 ml/min/1.73 sqM) Est GFR (CKD-EPI)NonAf (>60 ml/min/1.73 sqM) Glucose (74-99) mg/dL Plasma Lactic Acid Brendan 2.0 (0.7-2.0) mmol/L Calcium (8.4-10.2) mg/dL Magnesium (1.6-2.3) mg/dL Total Bilirubin (0.2-1.3) mg/dL AST (17-59) U/L ALT (4-49) U/L Alkaline Phosphatase (38-126) U/L Troponin I <0.012 (0.000-0.034) ng/mL NT-Pro-B Natriuret Pep 63 pg/mL Total Protein (6.3-8.2) g/dL Albumin (3.5-5.0) g/dL - Radiology Data Chest x-ray: Extensive pulmonary infiltrates without change compared to last exam. Disposition Clinical Impression: Dyspnea, Lightheadedness, Unable to care for self, Pneumonia due to COVID-19 virus Disposition: ADMITTED IP TO THIS HOSP Condition: Stable Is patient prescribed a controlled substance at d/c from ED?: No Referrals: [facility],Clinic [Primary Care Provider] - 1-2 days Time of Disposition: 20:31
[2021-07-28 19:26] LABS: Basophils # (A) 0.1 k/uL (0-0.2); Basophils % (A) 1 %; Eosinophils # (A) 0.3 k/uL (0-0.7); Eosinophils % (A) 3 %; HCT 40.8 % (39.0-53.0); HGB 13.4 gm/dL (13.0-17.5); Lymphocytes # (A) 1.8 k/uL (1.0-4.8); Lymphocytes % (A) 24 %; MCHC 32.8 g/dL (31.0-37.0); MCV 88.7 fL (80.0-100.0); Mean Platelet Volume 7.1; Monocytes # (A) 0.5 k/uL (0-1.0); Monocytes % (A) 7 %; Neutrophils # (A) 4.6 k/uL (1.3-7.7); Neutrophils % (A) 63 %; Platelet Count 225 k/uL (150-450); RDW 12.9 % (11.5-15.5); WBC 7.4 k/uL (3.8-10.6)
[2021-07-28 19:35] LABS: INR 0.9 (<1.2); Partial Thromboplastin Time 26.1 sec (22.0-30.0); Prothrombin Time 10.1 sec (9.0-12.0)
--- NOTE | 2021-07-28 19:48 | XR ---
EXAMINATION TYPE: XR chest 1V portable DATE OF EXAM: 07/28/2021 COMPARISON: 07/22/2021 HISTORY: Cough and short of breath TECHNIQUE: FINDINGS: There is coarse interstitial and airspace infiltrates throughout the lungs. Heart size is n ormal. There are chest leads. IMPRESSION: Extensive pulmonary infiltrates without change compared to last exam
[2021-07-28 20:09] LABS: ALT 27 U/L (4-49); AST 18 U/L (17-59); African American GFR (CKD) >90 (>60 ml/min/1.73 sqM); Alkaline Phosphatase 83 U/L (38-126); Anion Gap 7 mmol/L; Blood Urea Nitrogen 25 mg/dL (9-20); Calcium 8.8 mg/dL (8.4-10.2); Carbon Dioxide 24 mmol/L (22-30); Chloride 106 mmol/L (98-107); Glucose 200 mg/dL (74-99); Magnesium 1.8 mg/dL (1.6-2.3); Non-African American GFR(CKD) 81 (>60 ml/min/1.73 sqM); Potassium 4.8 mmol/L (3.5-5.1); Sodium 137 mmol/L (137-145); Total Bilirubin 0.3 mg/dL (0.2-1.3); Total Protein 6.1 g/dL (6.3-8.2)
[2021-07-28] MEDS ORDERED: NALOXONE 0.4 MG/ML 1 ML VIAL IV PRN (20:31)
[2021-07-28 22:13] LABS: Glucose,Whole Blood 172 mg/dL (75-99)
[2021-07-28] MEDS ORDERED: DULoxetine HCL 20 MG CAPSULE.DR PO SCH (23:30)
[2021-07-28] MEDS ORDERED: MECLIZINE 25 MG TAB PO PRN (23:30)
[2021-07-28] MEDS ORDERED: MELATONIN 5 MG TABLET PO PRN (23:30)
[2021-07-28] MEDS ORDERED: guaiFENesin 600 MG TABLET.ER PO PRN (23:30)
[2021-07-29] MEDS: NON FORMULARY DRUG (Apixaban [Eliquis Starter Pack (For Vte)] 5 MG Packet) PO SCH ×2 (00:26→08:43)
[2021-07-29] MEDS: GABAPENTIN 400 MG CAP PO SCH ×2 (00:27→08:42)
[2021-07-29] MEDS: ASCORBIC ACID 500 MG TAB PO SCH ×2 (00:28→08:42)
[2021-07-29] MEDS: CHOLECALCIFEROL 25 MCG (1000 IU) TABLET PO SCH ×2 (00:28→08:41)
[2021-07-29] MEDS: metFORMIN 500 MG TAB PO SCH ×2 (00:29→08:42)
[2021-07-29] MEDS: PANTOPRAZOLE 40 MG TABLET PO SCH ×2 (00:29→08:42)
[2021-07-29] MEDS: buPROPion 75 MG TAB PO SCH ×2 (00:29→09:26)
[2021-07-29] MEDS: ZINC SULFATE 220 MG CAP PO SCH ×2 (00:32→08:42)
[2021-07-29] MEDS ORDERED: LEVOTHYROXINE 100 MCG TAB PO SCH (06:30)
[2021-07-29 07:45] LABS: Glucose,Whole Blood 148 mg/dL (75-99)
[2021-07-29] MEDS: INSULIN ASPART (NovoLOG) 100 UNIT/ML VIAL SQ SCH ×2 (08:41→12:56)
[2021-07-29] MEDS ORDERED: FLUTICASONE 50MCG/SPRAY NASAL 16GM EA NOSTRIL SCH (09:00)
[2021-07-29] MEDS ORDERED: LORATADINE 10 MG TAB PO SCH (09:00)
[2021-07-29 09:20] LABS: Basophils # (A) 0.04 X 10*3/uL (0.00-0.10); Basophils % (A) 0.6 %; Eosinophils # (A) 0.28 X 10*3/uL (0.04-0.35); Eosinophils % (A) 4.5 %; HGB 12.3 g/dL (13.0-17.0); Lymphocytes # (A) 1.92 X 10*3/uL (0.90-5.00); Lymphocytes % (A) 30.6 %; MCH 28.1 pg (27.0-32.0); MCHC 31.5 g/dL (32.0-37.0); MCV 89.2 fL (80.0-97.0); Mean Platelet Volume 9.2 fL (9.5-12.2); Monocytes # (A) 0.75 X 10*3/uL (0.20-1.00); Monocytes % (A) 11.9 %; Neutrophils # (A) 3.24 X 10*3/uL (1.80-7.70); Neutrophils % (A) 51.6 %; Platelet Count 202 X 10*3/uL (140-440); RBC 4.37 X 10*6/uL (4.40-5.60); RDW 13.1 % (11.5-14.5); WBC 6.28 X 10*3/uL (4.50-10.00)
[2021-07-29 09:31] VITALS: BP 111/70; PULSE 68; RESP 18; TEMP 97.6
[2021-07-29 09:54] LABS: Albumin 3.1 g/dL (3.8-4.9); Albumin/Globulin Ratio 1.11 (1.60-3.17); Anion Gap 9.4 mmol/L (10.00-18.00); BUN/Creat Ratio 22.11 Ratio (12.00-20.00); Blood Urea Nitrogen 19.9 mg/dL (9.0-27.0); Calcium 8.8 mg/dL (8.7-10.3); Carbon Dioxide 25.6 mmol/L (20.0-27.5); Globulin 2.8 g/dL (1.6-3.3); Non-African American GFR(CKD) 90.6 (60.0-200.0); Potassium 4.6 mmol/L (3.5-5.5); Total Bilirubin 0.3 mg/dL (0.30-1.20); Total Protein 5.9 g/dL (6.2-8.2)
[2021-07-29 11:28] LABS: Glucose,Whole Blood 150 mg/dL (75-99)
--- NOTE | 2021-07-29 12:28 | P.HPIM ---
History of Present Illness Patient was recently treated for: COVID-19 pneumonia for which patient was discharged on oxygen patient was discharged on 5 L during his last hospitalization he was only requiring 3 L patient was later admitted again found to have pulmonary embolism after which patient was discharged on Eliquis. Patient was evaluated during last auscultation with physical therapy and occupational therapy patient did not qualify for subacute rehabitation patient was subsequently discharged home with home physical therapy. Patient homecare nurse told him to go to the hospital ever as he was bit dizzy while he was trying to cook, patient says he will eat healthy cooking and his regular activities. Patient says he has 2 sons with were 2 leading and cannot stay with them older son is 18 years old and lives far away from him in [place] and patient doesn't have many family members that can help him. Although unfortunately homecare will not provide the services he is expecting. ALB a social work will discuss his case with the social media senior associate here in the hospital after which patient will be discharged nothing much else can be offered from medical perspective and will not benefit from any further hospitalization. REVIEW OF SYSTEMS: CONSTITUTIONAL: No fever, no malaise, no fatigue. HEENT: No recent visual problems or hearing problems. Denied any sore throat. CARDIOVASCULAR: No chest pain, orthopnea, PND, no palpitations, no syncope. PULMONARY: No shortness of breath, no cough, no hemoptysis. GASTROINTESTINAL: No diarrhea, no nausea, no vomiting, no abdominal pain. NEUROLOGICAL: No headaches, no weakness, no numbness. HEMATOLOGICAL: Denies any bleeding or petechiae. GENITOURINARY: Denies any burning micturition, frequency, or urgency. MUSCULOSKELETAL/RHEUMATOLOGICAL: Denies any joint pain, swelling, or any muscle pain. ENDOCRINE: Denies any polyuria or polydipsia. The rest of the 14-point review of systems is negative. PHYSICAL EXAMINATION: GENERAL: The patient is alert and oriented x3, not in any acute distress. Well developed, well nourished. HEENT: Pupils are round and equally reacting to light. EOMI. No scleral icterus. No conjunctival pallor. Normocephalic, atraumatic. No pharyngeal erythema. No thyromegaly. CARDIOVASCULAR: S1 and S2 present. No murmurs, rubs, or gallops. PULMONARY: Chest is clear to auscultation, no wheezing or crackles. ABDOMEN: Soft, nontender, nondistended, normoactive bowel sounds. No palpable organomegaly. MUSCULOSKELETAL: No joint swelling or deformity. EXTREMITIES: No cyanosis, clubbing, or pedal edema. NEUROLOGICAL: Gross neurological examination did not reveal any focal deficits. SKIN: No rashes. Assessment and plan -Generalized weakness: Patient can ablate by himself and did not qualify for subacute rehabilitation patient will be discharged home again with home care patient will not benefit from any further hospitalization and nothing much else can be offered as an inpatient here. Social work evaluated the patient patient will be discharged today. -Recent COVID-19 pneumonia for which patient is on oxygen which will be continued and can be tapered even more than 4 L patient is saturating well on 4 L follow-up with pulmonology as an outpatient -Depression -Recent fever which are patient is on anti-correlation which she will continue -Hypertension -Hypothyroidism For above-mentioned chronic medical problems patient will be resumed on home medications patient will be discharged today Past Medical History Past Medical History: Diabetes Mellitus, GERD/Reflux, Hypertension, Thyroid Disorder Additional Past Medical History / Comment(s): DIVERTICULOSIS History of Any Multi-Drug Resistant Organisms: None Reported Past Surgical History: Appendectomy, Bariatric Surgery, Joint Replacement, Orthopedic Surgery Additional Past Surgical History / Comment(s): GATRIC SLEEVE. BILAT TKA. COLONOSCOPY. EYELID SX. RHINOPLASTY. Back Surgery 09/03/20 Past Anesthesia/Blood Transfusion Reactions: Motion Sickness Past Psychological History: No Psychological Hx Reported Smoking Status: Former smoker Past Alcohol Use History: Rare Additional Past Alcohol Use History / Comment(s): QUIT SMOKING CIGARETTES 1988-. Quit vaping Jul 2021 Past Drug Use History: None Reported - Past Family History Mother Family Medical History: No Reported History Sister(s) Family Medical History: Cancer Father Family Medical History: Cancer Medications and Allergies Home Medications Medication Instructions Recorded Confirmed Type Levothyroxine Sodium [Synthroid] 100 mcg PO DAILY 08/24/19 07/28/21 History Loratadine 10 mg PO DAILY 08/24/19 07/28/21 History DULoxetine HCL [Cymbalta] 20 mg PO HS 07/10/21 07/28/21 History Fluticasone Nasal [place] [Flonase 1 spr EA NOSTRIL DAILY 07/10/21 07/28/21 History Nasal [place]] Gabapentin 800 mg PO TID 07/10/21 07/28/21 History buPROPion [Wellbutrin] 150 mg PO DAILY 07/10/21 07/28/21 History guaiFENesin [Mucinex] 600 mg PO BID PRN 07/10/21 07/28/21 History Ascorbic Acid [Vitamin C] 1,000 mg PO DAILY #60 tab 07/19/21 07/28/21 Rx Cholecalciferol [Vitamin D3 (25 100 mcg PO DAILY #120 tablet 07/19/21 07/28/21 Rx Mcg = 1000 Iu)] Omeprazole 20 mg PO DAILY #30 cap 07/19/21 07/28/21 Rx Zinc Sulfate [Orazinc] 220 mg PO DAILY #30 cap 07/19/21 07/28/21 Rx metFORMIN HCL [Glucophage] 500 mg PO BID 15 Days #30 tab 07/19/21 07/28/21 Rx Meclizine [Antivert] 25 mg PO TID PRN 07/22/21 07/28/21 History Melatonin 5 mg PO HS PRN tablet 07/25/21 07/28/21 Rx Apixaban [Eliquis Starter Pack See Taper PO DIRECTED 07/28/21 07/28/21 History (for VTE)] Allergies Allergy/AdvReac Type Severity Reaction Status Date / Time No Known Allergies Allergy Verified 07/22/21 22:44 Physical Exam Vitals: Vital Signs Temp Pulse Pulse Resp BP BP Pulse Ox 07/29/21 09:07 97.6 F 68 18 111/70 96 07/29/21 06:00 97.7 F 67 16 110/70 97 07/29/21 02:00 98.2 F 67 17 118/69 97 07/28/21 22:18 97.1 F L 76 18 106/66 96 07/28/21 20:57 97.7 F 77 16 104/71 98 07/28/21 19:54 82 16 93/50 94 L 07/28/21 18:52 24 07/28/21 18:09 98.1 F 103 H 108/71 96 Intake and Output 07/28/21 07/29/21 07/29/21 22:59 06:59 14:59 Output Total 300 Balance -300 Output: Urine 300 Other: Weight 139.706 kg Results CBC & Chem 7: 07/29/21 05:08 07/29/21 05:08 Labs: Abnormal Lab Results - Last 24 Hours (Table) 07/28/21 07/28/21 07/29/21 Range/Units 19:04 22:11 05:08 RBC 4.37 L (4.40-5.60) X 10*6/uL Hgb 12.3 L (13.0-17.0) g/dL Hct 39.0 L (39.6-50.0) % MCHC 31.5 L (32.0-37.0) g/dL MPV 9.2 L (9.5-12.2) fL Immature Gran # 0.05 H (0.00-0.04) X 10*3/uL Anion Gap (10.00-18.00) mmol/L BUN 25 H (9-20) mg/dL BUN/Creatinine Ratio (12.00-20.00) Ratio Glucose 200 H (74-99) mg/dL POC Glucose (mg/dL) 172 H (75-99) mg/dL AST (14-35) U/L Total Protein 6.1 L (6.3-8.2) g/dL Albumin 3.0 L (3.5-5.0) g/dL Albumin/Globulin Ratio (1.60-3.17) g/dL 07/29/21 07/29/21 07/29/21 Range/Units 05:08 07:39 11:26 RBC (4.40-5.60) X 10*6/uL Hgb (13.0-17.0) g/dL Hct (39.6-50.0) % MCHC (32.0-37.0) g/dL MPV (9.5-12.2) fL Immature Gran # (0.00-0.04) X 10*3/uL Anion Gap 9.40 L (10.00-18.00) mmol/L BUN (9-20) mg/dL BUN/Creatinine Ratio 22.11 H (12.00-20.00) Ratio Glucose 140 H (74-99) mg/dL POC Glucose (mg/dL) 148 H 150 H (75-99) mg/dL AST 12 L (14-35) U/L Total Protein 5.9 L (6.3-8.2) g/dL Albumin 3.1 L (3.5-5.0) g/dL Albumin/Globulin Ratio 1.11 L (1.60-3.17) g/dL Thrombosis Risk Factor Assmnt - Choose All That Apply Any of the Below Risk Factors Present?: Yes Each Factor Represents 1 point: Obesity (BMI >25) Each Risk Factor Represents 2 Points: Age 61-74 years Each Risk Factor Represents 3 Points: History of DVT/PE Thrombosis Risk Factor Assessment Total Risk Factor Score: 6 Thrombosis Risk Factor Assessment Level: High Risk
--- NOTE | 2021-07-29 12:29 | P.DS ---
Providers Date of admission: 07/28/21 20:31 Attending physician: Maribel Bowser Consults: 07/28/21 20:31 Consult Physician Urgent Consulting Provider: Ene Newsome Reason/Comments: Covid pneumonia, pulmonary embolism Do you want consulting provider notified?: Yes Primary care physician: [facility] Course: Refer to history of present illness for further details Patient Condition at Discharge: Stable Plan - Discharge Summary Discharge Rx Participant: No New Discharge Prescriptions: Continue Levothyroxine Sodium [Synthroid] 100 mcg PO DAILY Loratadine 10 mg PO DAILY Zinc Sulfate [Orazinc] 220 mg PO DAILY #30 cap Cholecalciferol [Vitamin D3 (25 Mcg = 1000 Iu)] 100 mcg PO DAILY #120 tablet Melatonin 5 mg PO HS PRN tablet PRN Reason: Insomnia Apixaban [Eliquis Starter Pack (for VTE)] See Taper PO DIRECTED guaiFENesin [Mucinex] 600 mg PO BID PRN PRN Reason: Cough buPROPion [Wellbutrin] 150 mg PO DAILY Gabapentin 800 mg PO TID DULoxetine HCL [Cymbalta] 20 mg PO HS Fluticasone Nasal [place] [Flonase Nasal [place]] 1 spr EA NOSTRIL DAILY Ascorbic Acid [Vitamin C] 1,000 mg PO DAILY #60 tab metFORMIN HCL [Glucophage] 500 mg PO BID 15 Days #30 tab Omeprazole 20 mg PO DAILY #30 cap Meclizine [Antivert] 25 mg PO TID PRN PRN Reason: Vertigo Discharge Medication List Levothyroxine Sodium [Synthroid] 100 mcg PO DAILY 08/24/19 [History] Loratadine 10 mg PO DAILY 08/24/19 [History] DULoxetine HCL [Cymbalta] 20 mg PO HS 07/10/21 [History] Fluticasone Nasal [place] [Flonase Nasal [place]] 1 spr EA NOSTRIL DAILY 07/10/21 [History] Gabapentin 800 mg PO TID 07/10/21 [History] buPROPion [Wellbutrin] 150 mg PO DAILY 07/10/21 [History] guaiFENesin [Mucinex] 600 mg PO BID PRN 07/10/21 [History] Ascorbic Acid [Vitamin C] 1,000 mg PO DAILY #60 tab 07/19/21 [Rx] Cholecalciferol [Vitamin D3 (25 Mcg = 1000 Iu)] 100 mcg PO DAILY #120 tablet 07/19/21 [Rx] Omeprazole 20 mg PO DAILY #30 cap 07/19/21 [Rx] Zinc Sulfate [Orazinc] 220 mg PO DAILY #30 cap 07/19/21 [Rx] metFORMIN HCL [Glucophage] 500 mg PO BID 15 Days #30 tab 07/19/21 [Rx] Meclizine [Antivert] 25 mg PO TID PRN 07/22/21 [History] Melatonin 5 mg PO HS PRN tablet 07/25/21 [Rx] Apixaban [Eliquis Starter Pack (for VTE)] See Taper PO DIRECTED 07/28/21 [History] Follow up Appointment(s)/Referral(s): [facility],Clinic [Primary Care Provider] - 3 Days (patient to call and appointment after D/C) Discharge Disposition: HOME WITH HOME HEALTH SERVICES
== END 2021-07-29 15:28 | disposition home health service (06) | DRG 948 ==
LOC: EC 18:06 → 4SSUR 20:31
PROVIDERS: ADMIT Internal Medicine; ATTEND Internal Medicine
DX: R53.1 Weakness (principal); R06.02 Shortness of breath; E03.9 Hypothyroidism, unspecified; Z86.16 Personal history of COVID-19; E11.9 Type 2 diabetes mellitus without complications; I10 Essential (primary) hypertension; F32.A Depression, unspecified; K57.90 Diverticulosis of intestine, part unspecified, without perforation or abscess without bleeding; K21.9 Gastro-esophageal reflux disease without esophagitis; Z79.84 Long term (current) use of oral hypoglycemic drugs; Z79.890 Hormone replacement therapy; Z79.899 Other long term (current) drug therapy; Z86.711 Personal history of pulmonary embolism; Z87.891 Personal history of nicotine dependence; Z99.81 Dependence on supplemental oxygen; Z98.84 Bariatric surgery status
CPT/HCPCS: 36415; 71045; 80053; 83605; 83735; 83880; 84484; 85025; 85610; 85730; 99285

== ENCOUNTER → 2022-01-08 | Outpatient (CLI) | payer OTHER ==
--- NOTE | 2022-01-09 06:28 | CT ---
EXAMINATION TYPE: CT angio chest DATE OF EXAM: 01/08/2022 COMPARISON: Prior CTA chest July 22, 2021 HISTORY: h/o PE, f/u CT DLP: 1849.7 mGycm. Automated Exposure Control for Dose Reduction was Utilized. CONTRAST: CTA scan of the thorax is performed with IV Contrast, patient injected with 100 mL of Isovue 370, pul monary embolism protocol. MIP Images are created on CT scanner and reviewed. FINDINGS: Exam is suboptimal as patient unable to hold breath. Repeat attempt was performed. LUNGS: There are bilateral multifocal areas of groundglass opacity throughout the upper and lower rocio gs with additional areas of linear opacity in the lower lungs greatest in the periphery. No consolida tions are evident on current study. Findings improved from prior. No pleural effusion or pneumothorax is identified. Tracheobronchial tree is patent. MEDIASTINUM: There is poor opacification of the pulmonary arteries despite repeated attempts, no larg e central pulmonary embolism is present. Smaller peripheral segmental and subsegmental PE cannot be e xcluded. Prominent main pulmonary artery at 2.9 cm raising concern for underlying pulmonary artery hy pertension. There are no greater than 1 cm hilar or mediastinal lymph nodes. No cardiomegaly or per icardial effusion is seen. Somewhat small size thyroid gland redemonstrated. No thoracic aortic aneur ysm or dissection. OTHER: Surgical changes from gastric sleeve procedure are redemonstrated. Current exam shows partiall y exophytic low dense round lesion measuring 6.4 cm transversely laterally left kidney felt to reflec t exophytic thin-walled cyst, Hounsfield units average near 5. Bilateral gynecomastia is present. IMPRESSION: Suboptimal study without central pulmonary embolism. Persistent but improved bilateral mu ltifocal groundglass opacities greatest in the periphery could reflect edema and/or infiltrates with some areas of scarring in the lower lungs thought present.
== END | disposition home or self-care (01) ==
LOC: RADCTMAIN 15:44
PROVIDERS: ATTEND Internal Medicine Critical Care Medicine
DX: R91.8 Other nonspecific abnormal finding of lung field (principal)
CPT/HCPCS: 82565; 84520; 71275; 36415; Q9967

== ENCOUNTER → 2022-01-27 | Outpatient (CLI) | payer OTHER ==
--- NOTE | 2022-01-27 21:37 | MR ---
EXAMINATION TYPE: MR cervical spine wo con DATE OF EXAM: 01/27/2022 INDICATION: Patient age:Male; 66 years old; Reason for study: M54.12 RADICULOPATHY, CERVICAL REGION; PHH. Neck stiffness, radiculopathy. COMPARISON: None. TECHNIQUE: Multi planar, multi sequence imaging was performed utilizing: T1-weighted, T2-weighted, im aging of the cervical spine. No Gadolinium was given. FINDINGS: Alignment: The cervical vertebral bodies have preserved heights. Alignment is within normal limits gi lexii patient positioning. Bones: Bone signal is within normal limits. Multilevel degenerative disc disease is noted and most p ronounced at the C5-C6 vertebral levels. Cord: The spinal cord is unremarkable with regards to their signal intensity and morphology. Discs: Intervertebral disc signal is maintained. C2-C3: No significant disc pathology. The spinal canal is patent. No neural foraminal stenosis. C3-C4: A disc osteophyte complex is present which minimally narrows the ventral subarachnoid space. Bilateral facet and uncovertebral joint arthropathy are present with mild left neural foraminal sten osis. The right neural foramen is patent. C4-C5: A disc osteophyte complex is present with mild spinal canal stenosis. Bilateral facet and unc overtebral joint arthropathy are present with mild right neural foraminal stenosis. The left neural f oramen is patent. C5-C6: No significant disc pathology. The spinal canal is patent. No neural foraminal stenosis. C6-C7: No significant disc pathology. The spinal canal is patent. No neural foraminal stenosis. C7-T1: No significant disc pathology. The spinal canal is patent. No neural foraminal stenosis. IMPRESSION: 1. No evidence for disc herniation or significant spinal canal stenosis. 2. Mild disc degeneration with associated osteoarthritic changes.
== END | disposition home or self-care (01) ==
LOC: RADMRIMAIN 18:30
PROVIDERS: ATTEND Neurological Surgery
DX: M50.123 Cervical disc disorder at C6-C7 level with radiculopathy (principal); M47.22 Other spondylosis with radiculopathy, cervical region
CPT/HCPCS: 72141

== ENCOUNTER → 2022-10-29 | Outpatient (CLI) | payer OTHER ==
--- NOTE | 2022-10-29 10:01 | CT ---
EXAMINATION TYPE: CT lumbar spine wo con DATE OF EXAM: 10/29/2022 9:51 AM COMPARISON: None. HISTORY: LOWER BACK PAIN CT DLP: 2207.2 mGycm Automated exposure control for dose reduction was used. Unenhanced CT of the lumbar spine was performed. Bone and soft tissue window settings are submitted as well as coronal and sagittal reconstructions. There are 5 lumbar-type vertebra identified. Lumbar spine show straightened alignment. Posterior inte rpedicular rods and screws bilaterally transfixing the L3 through the S1 levels. The right-sided L3 s crew extends into the L2-L3 disc on sagittal image 32 and coronal image 32 for reference. There is mo derate to advanced disc space narrowing L4-L5 level. There is advanced disc space narrowing L5-S1 lev el. Vertebral body heights and disc space heights otherwise are maintained. There are bilateral jus ectomy defects and spinous process resection at the L4 level. Prominent lateral spurring right L2-L3 level. Mild to moderate multilevel anterior and lateral spurring in the mid to lower lumbar spine is present. Axial images show T12-L1 and L1-L2 levels to appear within normal limits. Axial images at L2-L3 level shows moderate to severe broad-based disc bulge effacing the anterior the rylee sac along with mild to moderate facet arthropathy and ligamentum flavum hypertrophy effacing the posterior lateral thecal sac on axial image 33. There is at least mild to moderate left greater than right bilateral neural foraminal narrowing. Axial images at L3-L4 level shows [id number] facet arthropathy bilaterally. There is at least m ild bilateral neural foraminal narrowing thought present. Axial images at L4-L5 level show moderate to advanced bilateral facet arthropathy. Bilateral laminect eboni defects and spinous process resection is seen. Axial images at L5-S1 level show moderate to advanced bilateral facet arthropathy. Paraspinal muscle bulk is preserved. IMPRESSION: Postsurgical change L3-S1 levels with satisfactory and straightened alignment. Multilevel degenerative change with further details as noted above. Attention to the right L3 screw noted.
== END | disposition home or self-care (01) ==
LOC: RADCTMAIN 08:35
PROVIDERS: ATTEND Neurological Surgery
DX: M47.26 Other spondylosis with radiculopathy, lumbar region (principal)
CPT/HCPCS: 72131

== ENCOUNTER 2023-04-10 15:50 | Emergency (ER) | payer OTHER ==
--- NOTE | 2023-04-10 18:08 | ED ---
General Adult HPI - General Source: patient Mode of arrival: ambulatory Limitations: no limitations <Aneudy Buitrago - Last Filed: 04/10/23 18:08> - General Source: patient, RN notes reviewed, old records reviewed <Neil Barfield - Last Filed: 04/11/23 00:21> - General Chief complaint: Upper Respiratory Infection Stated complaint: Fever/abd pain Time Seen by Provider: 04/10/23 17:25 - History of Present Illness Initial comments: 67-year-old male presents to the ED with chief complaint of fatigue. Patient states over the past 4-5 days has been "run down". Additionally states last night started to experience night sweats, and urinary frequency. Today notes some abdominal pain and nausea. (Aneudy Buitrago) Patient originally seen as a crick now. He is having multiple symptoms. Primary complaint is left lower quadrant pain. Also having URI symptoms for the last 5 days. Endorses occasional episodes of diarrhea. Denies any nausea or vomiting. Denies chest pain or shortness of breath. No other acute complaints at this time. Does have a history of diverticulitis. Would like to be evaluated. Originally seen as a quick note. He states he also intermittently will have episodes of being fatigued and run down. No known sick contacts. (Neil Barfield) - Related Data Home Medications Medication Instructions Recorded Confirmed Levothyroxine Sodium [Synthroid] 100 mcg PO DAILY 08/24/19 07/28/21 Loratadine 10 mg PO DAILY 08/24/19 07/28/21 DULoxetine HCL [Cymbalta] 20 mg PO HS 07/10/21 07/28/21 Fluticasone Nasal [place] [Flonase 1 spr EA NOSTRIL DAILY 07/10/21 07/28/21 Nasal [place]] Gabapentin 800 mg PO TID 07/10/21 07/28/21 buPROPion [Wellbutrin] 150 mg PO DAILY 07/10/21 07/28/21 guaiFENesin [Mucinex] 600 mg PO BID PRN 07/10/21 07/28/21 Meclizine [Antivert] 25 mg PO TID PRN 07/22/21 07/28/21 Apixaban [Eliquis Starter Pack See Taper PO DIRECTED 07/28/21 07/28/21 (for VTE)] Previous Rx's Medication Instructions Recorded Ascorbic Acid [Vitamin C] 1,000 mg PO DAILY #60 tab 07/19/21 Cholecalciferol [Vitamin D3 (25 100 mcg PO DAILY #120 tablet 07/19/21 Mcg = 1000 Iu)] Omeprazole 20 mg PO DAILY #30 cap 07/19/21 Zinc Sulfate [Orazinc] 220 mg PO DAILY #30 cap 07/19/21 metFORMIN HCL [Glucophage] 500 mg PO BID 15 Days #30 tab 07/19/21 Melatonin 5 mg PO HS PRN tablet 07/25/21 Amoxic-Pot Clav 875-125Mg 1 tab PO Q12HR 10 Days #20 tab 04/10/23 [Augmentin 875-125] Allergies Allergy/AdvReac Type Severity Reaction Status Date / Time No Known Allergies Allergy Verified 04/10/23 15:58 Review of Systems ROS Other: All systems not noted in ROS Statement are negative. <Aneudy Buitrago - Last Filed: 04/10/23 18:08> ROS Other: All systems not noted in ROS Statement are negative. <Neil Barfield - Last Filed: 04/11/23 00:21> ROS Statement: Those systems with pertinent positive or pertinent negative responses have been documented in the HPI. Review of Systems: CONST: Denies fever EYES: Denies blurry vision ENT: Denies nasal congestion C/V: Denies Chest pain RESP: Denies shortness of breath GI: Endorses abdominal pain : Denies dysuria SKIN: Denies rash. MSK: Denies joint pain. NEURO: Denies headache (Neil Barfield) Past Medical History Past Medical History: Diabetes Mellitus, GERD/Reflux, Hypertension, Thyroid Disorder Additional Past Medical History / Comment(s): DIVERTICULOSIS History of Any Multi-Drug Resistant Organisms: None Reported Past Surgical History: Appendectomy, Bariatric Surgery, Joint Replacement, Orthopedic Surgery Additional Past Surgical History / Comment(s): GATRIC SLEEVE. BILAT TKA. COLONOSCOPY. EYELID SX. RHINOPLASTY. Back Surgery 09/03/20 Past Anesthesia/Blood Transfusion Reactions: Motion Sickness Past Psychological History: No Psychological Hx Reported Smoking Status: Former smoker Past Alcohol Use History: None Reported Past Drug Use History: None Reported - Past Family History Mother Family Medical History: No Reported History Sister(s) Family Medical History: Cancer Father Family Medical History: Cancer <Aneudy Buitrago - Last Filed: 04/10/23 18:08> General Exam Limitations: no limitations General appearance: alert, in no apparent distress Neck exam: Present: normal inspection Extremities exam: Present: normal inspection Neurological exam: Present: alert <Aneudy Buitrago - Last Filed: 04/10/23 18:08> <Neil Barfield - Last Filed: 04/11/23 00:21> - General Exam Comments Initial Comments: General: Appears in no acute distress. HEAD: Normal with no signs of head trauma. EYES: PERRLA, EOMI, conjunctiva normal, no discharge. ENT: Hearing grossly intact, normal oropharynx. RESPIRATORY: Clear breath sounds bilaterally. No wheezes, rales, or rhonchi. C/V: Regular rate and rhythm. S1 and S2 auscultated, no edema, peripheral pulses 2+ and intact throughout ABD: Abdomen soft, nondistended. Left lower quadrant abdominal discomfort on palpation. No guarding. No rebound tenderness. No peritoneal signs. EXT: Normal range of motion, no obvious deformity SKIN: No rashes or lesions observed on exposed skin. NEURO: Alert and oriented 4. (Neil Barfield) Course Vital Signs 04/10/23 04/10/23 04/10/23 15:56 18:58 21:19 Temperature 98.2 F 98.0 F Pulse Rate 74 68 72 Respiratory 20 20 18 Rate Blood Pressure 123/82 134/81 104/58 O2 Sat by Pulse 96 98 98 Oximetry Medical Decision Making <Aneudy Buitrago - Last Filed: 04/10/23 18:08> - Lab Data Result diagrams: 04/10/23 18:48 04/10/23 18:48 - EKG Data -: EKG Interpreted by Me <Neil Barfield - Last Filed: 04/11/23 00:21> - Medical Decision Making Quicknote portion performed. Signed Aneudy Buitrago PA-C (Aneudy Buitrago) Was pt. sent in by a medical professional or institution ([facility], GEOPHYSICAL ENGINEER, urgent care, hospital, or fpc...) When possible be specific @ -No Did you speak to anyone other than the patient for history (EMS, parent, family, police, friend...)? What history was obtained from this source @ -No Did you review nursing and triage notes (agree or disagree)? Why? @ -I reviewed and agree with nursing and triage notes Were old charts reviewed (outside hosp., previous admission, EMS record, old EKG, old radiological studies, urgent care reports/EKG's, fpc records)? Report findings @ -Old charts reviewed. Differential Diagnosis (chest pain, altered mental status, abdominal pain women, abdominal pain men, vaginal bleeding, weakness, fever, dyspnea, syncope, headache, dizziness, GI bleed, back pain, seizure, CVA, palpatations, mental health, musculoskeletal)? @ -Differential Abdominal Pain Men: Appendicitis, cholecystitis, diverticulosis, ischemic bowel, pancreatitis, hepatitis, UTI, gastroenteritis, AAA, incarcerated hernia, bowel obstruction, constipation, inflammatory bowel, hepatitis, peptic ulcer disease, splenic infarction, perforated viscus, testicular torsion, this is not meant to be an a ll-inclusive list EKG interpreted by me (3pts min.). @ -As above X-rays interpreted by me (1pt min.). @ -Chest x-ray shows possible atypical viral pneumonia without any obvious acute process otherwise. CT interpreted by me (1pt min.). @ -CT of the abdomen and pelvis reveals diverticulitis that is uncomplicated. U/S interpreted by me (1pt. min.). @ -None done What testing was considered but not performed or refused? (CT, X-rays, U/S, labs)? Why? @ -None What meds were considered but not given or refused? Why? @ -None Did you discuss the management of the patient with other professionals (professionals i.e. , PA, GEOPHYSICAL ENGINEER, lab, RT, psych nurse, social media project manager, territory manager, teacher, chief contract officer, therapeutic case manager)? Give summary @ -No Was smoking cessation discussed for >3mins.? @ -No Was critical care preformed (if so, how long)? @ -No Were there social determinants of health that impacted care today? How? (Homelessness, low income, unemployed, alcoholism, drug addiction, transportation, low edu. Level, literacy, decrease access to med. care, halfway, rehab)? @ -No Was there de-escalation of care discussed even if they declined (Discuss DNR or withdrawal of care, Hospice)? DNR status @ -No What co-morbidities impacted this encounter? (DM, HTN, Smoking, COPD, CAD, Cancer, CVA, ARF, Chemo, Hep., AIDS, mental health diagnosis, sleep apnea, morbid obesity)? @ -None Was patient admitted / discharged? Hospital course, mention meds given and route, prescriptions, significant lab abnormalities, going to OR and other pertinent info. @ -Based on the patient's presentation and physical exam, I'm concerned for diverticulitis as well as possible atypical pneumonia. We will obtain infectious and pulmonary labs and screening EKG. Patient was in agreement this plan. Vital signs are within acceptable limits. Patient is symptomatic that she did with IV fluids, Zofran, Protonix. EKG showed no signs of acute ischemia. Patient's labs remarkable for negative I will sounds. Remainder labs within normal limits. Chest x-ray shows a typical likely viral pneumonia. Patient has diverticulitis on CT. I discussed results of the patient. He expressed understanding. He will be started on Augmentin. He was in agreement with this plan. Strict return precautions discussed. I will provide the patient with a prescription for Augmentin. I instructed the patient to follow up with their PCP in the next 1-3 days . I explained that the patient should return to the emergency department if they experience any worsening symptoms. Strict return precautions were discussed with the patient. The patient expressed understanding of these instructions. I answered all questions that the patient had. The patient was discharged home in good condition with their prescriptions and follow up information. Undiagnosed new problem with uncertain prognosis? @ -No Drug Therapy requiring intensive monitoring for toxicity (Heparin, Nitro, Insulin, Cardizem)? @ -No Were any procedures done? @ -No Diagnosis/symptom? @ -Diverticulitis, atypical pneumonia Acute, or Chronic, or Acute on Chronic? @ -Acute Uncomplicated (without systemic symptoms) or Complicated (systemic symptoms)? @ -, Complicated Side effects of treatment? @ -No Exacerbation, Progression, or Severe Exacerbation? @ -No Poses a threat to life or bodily function? How? (Chest pain, [place], [place], pneumonia, PE, COPD, DKA, ARF, appy, cholecystitis, CVA, Diverticulitis, Homicidal, Suicidal, threat to staff... and all critical care pts) @ -If untreated, possibly. (Neil Barfield) - Lab Data Lab Results 04/10/23 04/10/23 04/10/23 Range/Units 16:03 18:48 18:48 WBC 8.5 (3.8-10.6) k/uL RBC 5.00 (4.30-5.90) m/uL Hgb 14.9 (13.0-17.5) gm/dL Hct 45.0 (39.0-53.0) % MCV 89.9 (80.0-100.0) fL MCH 29.9 (25.0-35.0) pg MCHC 33.2 (31.0-37.0) g/dL RDW 13.0 (11.5-15.5) % Plt Count 202 (150-450) k/uL MPV 7.7 Neutrophils % 67 % Lymphocytes % 25 % Monocytes % 4 % Eosinophils % 3 % Basophils % 1 % Neutrophils # 5.7 (1.3-7.7) k/uL Lymphocytes # 2.1 (1.0-4.8) k/uL Monocytes # 0.4 (0-1.0) k/uL Eosinophils # 0.2 (0-0.7) k/uL Basophils # 0.1 (0-0.2) k/uL Sodium (137-145) mmol/L Potassium (3.5-5.1) mmol/L Chloride (98-107) mmol/L Carbon Dioxide (22-30) mmol/L Anion Gap mmol/L BUN (9-20) mg/dL Creatinine (0.66-1.25) mg/dL Est GFR (CKD-EPI)AfAm (>60 ml/min/1.73 sqM) Est GFR (CKD-EPI)NonAf (>60 ml/min/1.73 sqM) Glucose (74-99) mg/dL Calcium (8.4-10.2) mg/dL Total Bilirubin (0.2-1.3) mg/dL AST (17-59) U/L ALT (4-49) U/L Alkaline Phosphatase (38-126) U/L Total Protein (6.3-8.2) g/dL Albumin (3.5-5.0) g/dL Urine Color Yellow Urine Appearance Clear (Clear) Urine pH 5.0 (5.0-8.0) Ur Specific [place] 1.021 (1.001-1.035) Urine Protein Negative (Negative) Urine Glucose (UA) 3+ H (Negative) Urine Ketones Negative (Negative) Urine Blood Negative (Negative) Urine Nitrite Negative (Negative) Urine Bilirubin Negative (Negative) Urine Urobilinogen <2.0 (<2.0) mg/dL Ur Leukocyte Esterase Negative (Negative) Influenza Type A (PCR) Not Detected (Not Detectd) Influenza Type B (PCR) Not Detected (Not Detectd) RSV (PCR) Not Detected (Not Detectd) SARS-CoV-2 (PCR) Not Detected (Not Detectd) 04/10/23 Range/Units 18:48 WBC (3.8-10.6) k/uL RBC (4.30-5.90) m/uL Hgb (13.0-17.5) gm/dL Hct (39.0-53.0) % MCV (80.0-100.0) fL MCH (25.0-35.0) pg MCHC (31.0-37.0) g/dL RDW (11.5-15.5) % Plt Count (150-450) k/uL MPV Neutrophils % % Lymphocytes % % Monocytes % % Eosinophils % % Basophils % % Neutrophils # (1.3-7.7) k/uL Lymphocytes # (1.0-4.8) k/uL Monocytes # (0-1.0) k/uL Eosinophils # (0-0.7) k/uL Basophils # (0-0.2) k/uL Sodium 138 (137-145) mmol/L Potassium 4.1 (3.5-5.1) mmol/L Chloride 106 (98-107) mmol/L Carbon Dioxide 18 L (22-30) mmol/L Anion Gap 14 mmol/L BUN 17 (9-20) mg/dL Creatinine 0.87 (0.66-1.25) mg/dL Est GFR (CKD-EPI)AfAm >90 (>60 ml/min/1.73 sqM) Est GFR (CKD-EPI)NonAf >90 (>60 ml/min/1.73 sqM) Glucose 253 H (74-99) mg/dL Calcium 9.6 (8.4-10.2) mg/dL Total Bilirubin 0.5 (0.2-1.3) mg/dL AST 29 (17-59) U/L ALT 22 (4-49) U/L Alkaline Phosphatase 90 (38-126) U/L Total Protein 7.1 (6.3-8.2) g/dL Albumin 4.2 (3.5-5.0) g/dL Urine Color Urine Appearance (Clear) Urine pH (5.0-8.0) Ur Specific [place] (1.001-1.035) Urine Protein (Negative) Urine Glucose (UA) (Negative) Urine Ketones (Negative) Urine Blood (Negative) Urine Nitrite (Negative) Urine Bilirubin (Negative) Urine Urobilinogen (<2.0) mg/dL Ur Leukocyte Esterase (Negative) Influenza Type A (PCR) (Not Detectd) Influenza Type B (PCR) (Not Detectd) RSV (PCR) (Not Detectd) SARS-CoV-2 (PCR) (Not Detectd) - EKG Data EKG Comments: 12-lead Electrocardiogram Interpretation Note EKG was reviewed and interpreted by myself. 12-lead ECG performed at 2001 is interpreted by me as revealing normal sinus rhythm at a rate of 63 beats per minute. [place] is normal. NE interval is 182 ms, QRS durations 103 ms, QTc is 409 ms.. There were no ST or T wave abnormalities to suggest myocardial ischemia or injury. R wave progression across the precordium was satisfactory. By my interpretation this EKG is non-diagnostic for acute ischemia. (Neil Barfield) Disposition <Aneudy Buitrago - Last Filed: 04/10/23 18:08> Is patient prescribed a controlled substance at d/c from ED?: No Time of Disposition: 21:25 <Neil Barfield - Last Filed: 04/11/23 00:21> Clinical Impression: Diverticulitis, Atypical pneumonia Disposition: HOME SELF-CARE Condition: Good Instructions (If sedation given, give patient instructions): Diverticulitis (ED) Prescriptions: Amoxic-Pot Clav 875-125Mg [Augmentin 875-125] 1 tab PO Q12HR 10 Days #20 tab Referrals: [facility],Clinic [Primary Care Provider] - 1-2 days
[2023-04-10 19:08] VITALS: TEMP 98
[2023-04-10 19:11] LABS: ALT 22 U/L (4-49); AST 29 U/L (17-59); African American GFR (CKD) >90 (>60 ml/min/1.73 sqM); Albumin 4.2 g/dL (3.5-5.0); Alkaline Phosphatase 90 U/L (38-126); Anion Gap 14 mmol/L; Blood Urea Nitrogen 17 mg/dL (9-20); Calcium 9.6 mg/dL (8.4-10.2); Carbon Dioxide 18 mmol/L (22-30); Chloride 106 mmol/L (98-107); Glucose 253 mg/dL (74-99); Non-African American GFR(CKD) >90 (>60 ml/min/1.73 sqM); Potassium 4.1 mmol/L (3.5-5.1); Sodium 138 mmol/L (137-145); Total Bilirubin 0.5 mg/dL (0.2-1.3); Total Protein 7.1 g/dL (6.3-8.2)
[2023-04-10 19:23] LABS: Basophils # (A) 0.1 k/uL (0-0.2); Basophils % (A) 1 %; Eosinophils # (A) 0.2 k/uL (0-0.7); Eosinophils % (A) 3 %; HGB 14.9 gm/dL (13.0-17.5); Lymphocytes # (A) 2.1 k/uL (1.0-4.8); Lymphocytes % (A) 25 %; MCH 29.9 pg (25.0-35.0); MCHC 33.2 g/dL (31.0-37.0); MCV 89.9 fL (80.0-100.0); Mean Platelet Volume 7.7; Monocytes # (A) 0.4 k/uL (0-1.0); Monocytes % (A) 4 %; Neutrophils # (A) 5.7 k/uL (1.3-7.7); Neutrophils % (A) 67 %; Platelet Count 202 k/uL (150-450); WBC 8.5 k/uL (3.8-10.6)
[2023-04-10] MEDS ORDERED: ONDANSETRON 4 MG/2 ML VIAL IVP STA (19:23)
[2023-04-10] MEDS ORDERED: SODIUM CHLORIDE 0.9% 1,000 ML IV STA (19:23)
[2023-04-10] MEDS ORDERED: PANTOPRAZOLE 40 MG/10 ML VIAL IVP STA (19:23)
--- NOTE | 2023-04-10 19:45 | XR ---
EXAMINATION TYPE: XR chest 2V DATE OF EXAM: 04/10/2023 7:34 PM CLINICAL INDICATION:Male, 67 years old with history of cough; COMPARISON: Chest radiographs from 07/28/2021 TECHNIQUE: XR chest 2V Frontal and lateral views of the chest. FINDINGS: Lungs/Pleura: Scattered subtle reticular and hazy opacities. No evidence of pneumothorax, focal conso lidation or pleural effusion. Pulmonary vascularity: Unremarkable. Heart/mediastinum: Cardiomediastinal silhouette is unremarkable. Musculoskeletal: No acute osseous pathology. IMPRESSION: Subtle scattered opacities which may represent an atypical pneumonia. Correlate for covid 19.
[2023-04-10 20:13] LABS: Appearance,Urine Clear (Clear); Bilirubin,Urine Negative (Negative); Blood,Urine Negative (Negative); Color,Urine Yellow; Glucose,Urine (UA) 3+ (Negative); Ketones,Urine Negative (Negative); Leukocyte Esterase,Urine Negative (Negative); Nitrite,Urine Negative (Negative); Protein,Urine Negative (Negative); Specific Gravity,Urine 1.021 (1.001-1.035); Urobilinogen,Urine <2.0 mg/dL (<2.0)
--- NOTE | 2023-04-10 20:38 | CT ---
EXAMINATION TYPE: CT abdomen pelvis w con CT DLP: 2913.4 mGycm, Automated exposure control for dose reduction was used. DATE OF EXAM: 04/10/2023 7:59 PM COMPARISON: CT abdomen pelvis most recent from CLINICAL INDICATION:Male, 67 years old with history of abdominal pain, llq; Left side sharp abdomina l pain x 3 weeks, history of diverticulitis. TECHNIQUE: Axial CT of the abdomen and pelvis. Sagittal and coronal reformats were created on a [employer] workstation. Contrast used:100 cc mL of Isovue 300 with IV Contrast, (none if empty) Oral contrast used: without Oral Contrast (none if empty) FINDINGS: LOWER CHEST: Unremarkable ABDOMEN LIVER: Probable right hepatic lobe cyst. GALLBLADDER AND BILE DUCTS: Unremarkable. PANCREAS: Unremarkable. SPLEEN: Unremarkable. ADRENAL GLANDS: Unremarkable. KIDNEYS AND URETERS: No evidence of hydronephrosis or renal calculus. The ureters are unremarkable. Left renal cysts. PELVIS BLADDER: Decompressed with facet joint changes as described below. REPRODUCTIVE: Unremarkable. ABDOMEN & PELVIS STOMACH AND BOWEL: No evidence of bowel obstruction. Post surgical changes to the gastric lumen. Ther e is multiple colonic diverticula some of which have inflammation changes around them particularly so me close to the urinary bladder wall series 202 image 62. There is outpouching which may be containin g feces measuring 3.9 x 4.9 cm.. Small tract extends to the bladder wall. PERITONEUM/RETROPERITONEUM: No evidence of pneumoperitoneum or free fluid. VASCULATURE: No evidence of aortic aneurysm. MUSCULOSKELETAL: No acute osseous abnormalities, postsurgical changes to the lumbar spine. Hardware a ppears intact. Superior pedicle screw enters the L2-L3 disc space. LYMPH NODES: No gross evidence for lymphadenopathy. SOFT TISSUE/ABDOMINAL WALL: Unremarkable IMPRESSION: 1. Findings suggestive diverticulitis with large outpouching near the sigmoid colon measuring up to 4.9 cm which is adjacent to the urinary bladder . There is extensive fat stranding changes in this re gion extending to the urinary bladder. Overall findings suggest large colonic diverticula with divert iculitis. Correlate with urinalysis. 2. Postsurgical changes to the lumbar spine. Hardware appears intact. Superior pedicle screw enters the L2-L3 disc space.
[2023-04-10 21:20] VITALS: BP 104/58; PULSE 72; RESP 18
[2023-04-10] MEDS ORDERED: AMOXIC-POT CLAV 875-125MG 1 EACH TAB PO STA (21:44)
[2023-04-10] MEDS ORDERED: ONDANSETRON 4 MG ODT STARTER PACK 2 TAB BTL PO STA (21:45)
== END 2023-04-10 22:06 | disposition home or self-care (01) ==
LOC: EC 15:50
DX: J18.9 Pneumonia, unspecified organism (principal); K57.92 Diverticulitis of intestine, part unspecified, without perforation or abscess without bleeding; E11.9 Type 2 diabetes mellitus without complications; I10 Essential (primary) hypertension; E07.9 Disorder of thyroid, unspecified; Z87.891 Personal history of nicotine dependence; Z79.890 Hormone replacement therapy; Z79.899 Other long term (current) drug therapy; Z20.822 Contact with and (suspected) exposure to COVID-19; Z90.49 Acquired absence of other specified parts of digestive tract
CPT/HCPCS: 36415; 93005; 80053; 85025; 81003; 87636; 71046; 74177; 99285; 96374; 96375; 96361; J2405; S0119; C9113; Q9967

== ENCOUNTER 2023-10-01 13:38 | Emergency (ER) | payer OTHER ==
--- NOTE | 2023-10-01 13:56 | ED ---
Back Pain HPI - General Stated Complaint: Back pain Time Seen by Provider: 10/01/23 13:50 Source: patient, RN notes reviewed - History of Present Illness Initial Comments: 68-year-old male chief complaint of lumbar back pain. States he had surgery on his back 8 years ago with placement of rods and screws. States he [facility], came here for evaluation of muscle spasms. Denies any numbness or tingling to the bilateral lower extremities or trauma and/or falls to the area. He states that he has tried muscle relaxers at home that have helped in the past, but states that he is out of his prescription due to not [facility] in the past few months. - Related Data Home Medications Medication Instructions Recorded Confirmed Levothyroxine Sodium [Synthroid] 100 mcg PO DAILY 08/24/19 07/28/21 Loratadine 10 mg PO DAILY 08/24/19 07/28/21 DULoxetine HCL [Cymbalta] 20 mg PO HS 07/10/21 07/28/21 Fluticasone Nasal [place] [Flonase 1 spr EA NOSTRIL DAILY 07/10/21 07/28/21 Nasal [place]] Gabapentin 800 mg PO TID 07/10/21 07/28/21 buPROPion [Wellbutrin] 150 mg PO DAILY 07/10/21 07/28/21 guaiFENesin [Mucinex] 600 mg PO BID PRN 07/10/21 07/28/21 Meclizine [Antivert] 25 mg PO TID PRN 07/22/21 07/28/21 Apixaban [Eliquis Starter Pack See Taper PO DIRECTED 07/28/21 07/28/21 (for VTE)] Previous Rx's Medication Instructions Recorded Ascorbic Acid [Vitamin C] 1,000 mg PO DAILY #60 tab 07/19/21 Cholecalciferol [Vitamin D3 (25 100 mcg PO DAILY #120 tablet 07/19/21 Mcg = 1000 Iu)] Omeprazole 20 mg PO DAILY #30 cap 07/19/21 Zinc Sulfate [Orazinc] 220 mg PO DAILY #30 cap 07/19/21 metFORMIN HCL [Glucophage] 500 mg PO BID 15 Days #30 tab 07/19/21 Melatonin 5 mg PO HS PRN tablet 07/25/21 Amoxic-Pot Clav 875-125Mg 1 tab PO Q12HR 10 Days #20 tab 04/10/23 [Augmentin 875-125] Cyclobenzaprine [Flexeril] 10 mg PO TID PRN #15 tab 10/01/23 Lidocaine 4% Patch 1 patch TOPICAL DAILY PRN #5 patch 10/01/23 Allergies Allergy/AdvReac Type Severity Reaction Status Date / Time No Known Allergies Allergy Verified 10/01/23 13:56 Review of Systems ROS Statement: Those systems with pertinent positive or pertinent negative responses have been documented in the HPI. ROS Other: All systems not noted in ROS Statement are negative. Past Medical History Past Medical History: Diabetes Mellitus, GERD/Reflux, Hypertension, Thyroid Disorder Additional Past Medical History / Comment(s): DIVERTICULOSIS History of Any Multi-Drug Resistant Organisms: None Reported Past Surgical History: Appendectomy, Bariatric Surgery, Joint Replacement, Orthopedic Surgery Additional Past Surgical History / Comment(s): GATRIC SLEEVE. BILAT TKA. COLON OSCOPY. EYELID SX. RHINOPLASTY. Back Surgery 09/03/20 Past Anesthesia/Blood Transfusion Reactions: Motion Sickness Past Psychological History: No Psychological Hx Reported Smoking Status: Former smoker Past Alcohol Use History: None Reported Past Drug Use History: None Reported - Past Family History Mother Family Medical History: No Reported History Sister(s) Family Medical History: Cancer Father Family Medical History: Cancer General Exam - General Exam Comments Initial Comments: Visual Physical Exam Vital signs reviewed General: Well-appearing, nontoxic, no acute distress. Head: Normocephalic, atraumatic Eyes: PERRLA, EOMI ENT: Airway patent Chest: Nonlabored breathing Skin: No visual rash, normal skin tone Neuro: Alert and oriented 3 Musculoskeletal: No gross abnormalities General appearance: alert, in no apparent distress Head exam: Present: atraumatic, normocephalic, normal inspection Eye exam: Present: normal appearance, PERRL, EOMI. Absent: scleral icterus, conjunctival injection, periorbital swelling ENT exam: Present: normal exam, mucous membranes moist Neck exam: Present: normal inspection. Absent: tenderness, meningismus, lymp hadenopathy Respiratory exam: Present: normal lung sounds bilaterally. Absent: respiratory distress, wheezes, rales, rhonchi, stridor Cardiovascular Exam: Present: regular rate, normal rhythm, normal heart sounds. Absent: systolic murmur, diastolic murmur, rubs, gallop, clicks GI/Abdominal exam: Present: soft, normal bowel sounds. Absent: distended, tenderness, guarding, rebound, rigid Extremities exam: Present: normal inspection, full ROM, normal capillary refill. Absent: tenderness, pedal edema, joint swelling, calf tenderness Back exam: Present: normal inspection, vertebral tenderness (diffuse tenderness palpated over the left and right lumbar spine) Neurological exam: Present: alert, oriented X3, CN II-XII intact Psychiatric exam: Present: normal affect, normal mood Skin exam: Present: warm, dry, intact, normal color. Absent: rash Course Vital Signs 10/01/23 10/01/23 13:53 16:18 Pulse Rate 76 68 Respiratory 20 20 Rate Blood Pressure 155/85 117/57 O2 Sat by Pulse 95 96 Oximetry Medical Decision Making - Medical Decision Making Was pt. sent in by a medical professional or institution (, [place], [facility], urgent care, hospital, or care home...) When possible be specific @ -No Did you speak to anyone other than the patient for history (EMS, parent, family, police, friend...)? What history was obtained from this source @ -No Did you review nursing and triage notes (agree or disagree)? Why? @ -I reviewed and agree with nursing and triage notes Were old charts reviewed (outside hosp., previous admission, EMS record, old EKG, old radiological studies, urgent care reports/EKG's, care home records)? Report findings @ -No old charts were reviewed Differential Diagnosis (chest pain, altered mental status, abdominal pain women, abdominal pain men, vaginal bleeding, weakness, fever, dyspnea, syncope, headache, dizziness, GI bleed, back pain, seizure, CVA, palpatations, mental health, musculoskeletal)? @ -Differential Musculoskeletal Muscular strain, contusion, ligament sprain, fracture, arthritis, septic arthritis, bursitis, cellulitis, muscle spasm, nerve compression, DVT, arterial occlusion, herpes zoster, electrolyte abnormality, tumor.... This is not meant to be in all inclusive list EKG interpreted by me (3pts min.). @ -None X-rays interpreted by me (1pt min.). @ -Xray of Lumbar spine shows mild to moderate multilevel disc degeneration and postsurgical changes with L3 fixation findings not significantly changed since April 2023. CT interpreted by me (1pt min.). @ -None done U/S interpreted by me (1pt. min.). @ -None done What testing was considered but not performed or refused? (CT, X-rays, U/S, labs)? Why? @ -None What meds were considered but not given or refused? Why? @ -None Did you discuss the management of the patient with other professionals (professionals i.e. DrCori, [facility], [facility], lab, RT, psych nurse, social services analyst, grinder machine setter, teacher, ethics officer, case making machine operator)? Give summary @ -No Was smoking cessation discussed for >3mins.? @ -No Was critical care preformed (if so, how long)? @ -No Were there social determinants of health that impacted care today? How? (Homelessness, low income, unemployed, alcoholism, drug addiction, transportation, low edu. Level, literacy, decrease access to med. care, [facility], rehab)? @ -No Was there de-escalation of care discussed even if they declined (Discuss DNR or withdrawal of care, Hospice)? DNR status @ -No What co-morbidities impacted this encounter? (DM, HTN, Smoking, COPD, CAD, Cancer, CVA, ARF, Chemo, Hep., AIDS, mental health diagnosis, sleep apnea, morbid obesity)? @ -None Was patient admitted / discharged? Hospital course, mention meds given and route , prescriptions, significant lab abnormalities, going to OR and other pertinent info. @ -discharged. He is afebrile with chief plaint of lumbar back pain. Comprehensive physical exam completed with no acute red flag findings. Patient had mild paraspinal tenderness to palpation on physical exam, no range of motion deficits or neurological deficits. Xray of Lumbar spine shows mild to moderate multilevel disc degeneration and postsurgical changes with L3 fixation findings not significantly changed since April 2023. Patient was given dose of muscle spasm medication and states that his symptoms have improved. [facility] of his chronic back pain. Patient was given as needed muscle relaxant medication t o take at home when the spasms occur again. I discussed this case with my attending, Dr. Barfield, agreeable with plan and for discharge. Was prescribed 15 pills of as needed Flexeril to take Undiagnosed new problem with uncertain prognosis? @ -No Drug Therapy requiring intensive monitoring for toxicity (Heparin, Nitro, Insulin, Cardizem)? @ -No Were any procedures done? @ -No Diagnosis/symptom? @ -Back pain, muscle spasm Acute, or Chronic, or Acute on Chronic? @ -acute Uncomplicated (without systemic symptoms) or Complicated (systemic symptoms)? @ -uncomplicated Side effects of treatment? @ -No Exacerbation, Progression, or Severe Exacerbation? @ -No Poses a threat to life or bodily function? How? (Chest pain, [place], [place], pneumonia, PE, COPD, DKA, ARF, appy, cholecystitis, CVA, Diverticulitis, Homicidal, Suicidal, threat to staff... and all critical care pts) @ -No Disposition Clinical Impression: Back pain, Chronic low back pain without sciatica Narrative: The emergency department symptoms worsen or do not improve. Use [id number] lidocaine patches as needed for pain relief. Keep appointment scheduled with the [facility] in November for further evaluation. Disposition: HOME SELF-CARE Condition: Good Instructions (If sedation given, give patient instructions): Acute Low Back Pain (ED) Prescriptions: Cyclobenzaprine [Flexeril] 10 mg PO TID PRN #15 tab PRN Reason: Muscle Spasm Lidocaine 4% Patch 1 patch TOPICAL DAILY PRN #5 patch PRN Reason: Pain Is patient prescribed a controlled substance at d/c from ED?: No Referrals: [facility],Clinic [Primary Care Provider] - 1-2 days Time of Disposition: 16:05
[2023-10-01 14:15] VITALS: RESP 20
[2023-10-01] MEDS: ORPHENADRINE 30 MG/ML 2 ML VIAL IM STA (14:51)
--- NOTE | 2023-10-01 15:41 | XR ---
EXAMINATION TYPE: XR lumbar spine 2 or 3V DATE OF EXAM: 10/01/2023 2:49 PM CLINICAL INDICATION:Male, 68 years old with history of lower back pain, previous surgery; [facility] COMPARISON: CT 04/10/2023. TECHNIQUE: XR lumbar spine 2 or 3V - Frontal, lateral and coned in L5-S1 lateral views of the spine. FINDINGS: Postsurgical changes at L3-L4 and L5 with hardware in place. At least one of the fixation s crews appears possibly mispositioned at L3 on the right. No evidence of any acute osseous pathology. No evidence of loss of vertebral body height is seen. There is normal alignment of the lumbar verteb ral bodies. Mild scattered disc space narrowing. Multilevel marginal osteophyte formation throughout the visualized spine. There is facet joint arthropathy throughout the spine. Scattered at least mild neural foraminal stenosis. IMPRESSION: 1. Post surgical changes with L3 fixation screw slightly high riding compared to the left. Findings n ot significantly changed from 04/10/2023. No evidence of fracture. 2. Mild to moderate multilevel disc degeneration.
[2023-10-01 16:41] VITALS: BP 117/57; PULSE 68
== END 2023-10-01 16:22 | disposition home or self-care (01) ==
LOC: EC 13:38
DX: G89.29 Other chronic pain (principal); M54.50 Low back pain, unspecified; Z87.891 Personal history of nicotine dependence
CPT/HCPCS: 72100; 99283; 96372; J2360

== ENCOUNTER 2023-11-20 17:51 | Emergency (ER) | payer OTHER ==
--- NOTE | 2023-11-20 18:03 | ED ---
General Adult HPI - General Stated complaint: Pain in lower right back, painful urination Time Seen by Provider: 11/20/23 18:00 - History of Present Illness Initial comments: 68-year-old male presenting to the ED with a chief complaint of urinary symptoms. Patient reports onset 3 days ago urinary frequency and dysuria. Today notes onset of right flank pain. Did note that he was starting to have fevers at home as well. Also notes over the past few days he has had "loose stools" and some intermittent sharp abdominal pains. At this time reports no abdominal pain and only notes the flank pain. He did [facility]. No chest pain or shortness of breath. No other complaints at this time. - Related Data Home Medications Medication Instructions Recorded Confirmed Levothyroxine Sodium [Synthroid] 100 mcg PO DAILY 08/24/19 07/28/21 Loratadine 10 mg PO DAILY 08/24/19 07/28/21 DULoxetine HCL [Cymbalta] 20 mg PO HS 07/10/21 07/28/21 Fluticasone Nasal [place] [Flonase 1 spr EA NOSTRIL DAILY 07/10/21 07/28/21 Nasal [place]] Gabapentin 800 mg PO TID 07/10/21 07/28/21 buPROPion [Wellbutrin] 150 mg PO DAILY 07/10/21 07/28/21 guaiFENesin [Mucinex] 600 mg PO BID PRN 07/10/21 07/28/21 Meclizine [Antivert] 25 mg PO TID PRN 07/22/21 07/28/21 Apixaban [Eliquis Starter Pack See Taper PO DIRECTED 07/28/21 07/28/21 (for VTE)] Previous Rx's Medication Instructions Recorded Ascorbic Acid [Vitamin C] 1,000 mg PO DAILY #60 tab 07/19/21 Cholecalciferol [Vitamin D3 (25 100 mcg PO DAILY #120 tablet 07/19/21 Mcg = 1000 Iu)] Omeprazole 20 mg PO DAILY #30 cap 07/19/21 Zinc Sulfate [Orazinc] 220 mg PO DAILY #30 cap 07/19/21 metFORMIN HCL [Glucophage] 500 mg PO BID 15 Days #30 tab 07/19/21 Melatonin 5 mg PO HS PRN tablet 07/25/21 Amoxic-Pot Clav 875-125Mg 1 tab PO Q12HR 10 Days #20 tab 04/10/23 [Augmentin 875-125] Cyclobenzaprine [Flexeril] 10 mg PO TID PRN #15 tab 10/01/23 Lidocaine 4% Patch 1 patch TOPICAL DAILY PRN #5 patch 10/01/23 Allergies Allergy/AdvReac Type Severity Reaction Status Date / Time No Known Allergies Allergy Verified 11/20/23 18:51 Review of Systems ROS Statement: Those systems with pertinent positive or pertinent negative responses have been documented in the HPI. ROS Other: All systems not noted in ROS Statement are negative. Past Medical History Past Medical History: Diabetes Mellitus, GERD/Reflux, Hypertension, Thyroid Di sorder Additional Past Medical History / Comment(s): DIVERTICULOSIS History of Any Multi-Drug Resistant Organisms: None Reported Past Surgical History: Appendectomy, Bariatric Surgery, Joint Replacement, Orthopedic Surgery Additional Past Surgical History / Comment(s): GATRIC SLEEVE. BILAT TKA. CO LONOSCOPY. EYELID SX. RHINOPLASTY. Back Surgery 09/03/20 Past Anesthesia/Blood Transfusion Reactions: Motion Sickness Past Psychological History: No Psychological Hx Reported Smoking Status: Former smoker Past Alcohol Use History: None Reported Past Drug Use History: None Reported - Past Family History Mother Family Medical History: No Reported History Sister(s) Family Medical History: Cancer Father Family Medical History: Cancer General Exam - General Exam Comments Initial Comments: Visual Physical Exam Vital signs reviewed General: Well-appearing, nontoxic, no acute distress. Head: Normocephalic, atraumatic Eyes: PERRLA, EOMI ENT: Airway patent Chest: Nonlabored breathing Skin: No visual rash, normal skin tone Neuro: Alert and oriented 3 Musculoskeletal: No gross abnormalities General appearance: alert, in no apparent distress Eye exam: Present: normal appearance Neck exam: Present: normal inspection Respiratory exam: Present: normal lung sounds bilaterally Cardiovascular Exam: Present: regular rate GI/Abdominal exam: Present: soft (Bowel sounds present), other (Right CVA tenderness to percussion.). Absent: tenderness, guarding, rebound, rigid Neurological exam: Present: alert, oriented X3 Skin exam: Present: warm, dry Course Vital Signs 11/20/23 18:49 Temperature 98.9 F Pulse Rate 81 Respiratory 16 Rate Blood Pressure 156/65 O2 Sat by Pulse 96 Oximetry Medical Decision Making - Medical Decision Making Quicknote portion performed. Signed Aneudy Buitrago PA-C Was pt. sent in by a medical professional or institution (EMORY Gardner, LAUNDRY CLERK, urgent care, hospital, or [place] health care facility...) When possible be specific @ -No Did you speak to anyone other than the patient for history (EMS, parent, family, police, friend...)? What history was obtained from this source @ -No Did you review nursing and triage notes (agree or disagree)? Why? @ -I reviewed and agree with nursing and triage notes Were old charts reviewed (outside hosp., previous admission, EMS record, old EKG, old radiological studies, urgent care reports/EKG's, [place] health care facility records)? Report findings @ -No old charts were reviewed Differential Diagnosis (chest pain, altered mental status, abdominal pain women, abdominal pain men, vaginal bleeding, weakness, fever, dyspnea, syncope, headache, dizziness, GI bleed, back pain, seizure, CVA, palpatations, mental health, musculoskeletal)? @ -Differential Abdominal Pain Men: Appendicitis, cholecystitis, diverticulosis, ischemic bowel, pancreatitis, hepatitis, UTI, gastroenteritis, AAA, incarcerated hernia, bowel obstruction, constipation, inflammatory bowel, hepatitis, peptic ulcer disease, splenic infarction, perforated viscus, testicular torsion, this is not meant to be an all-inclusive list EKG interpreted by me (3pts min.). @ -None X-rays interpreted by me (1pt min.). @ -None done CT interpreted by me (1pt min.). @ -CT abdomen pelvis interpreted me showing suspected large bowel diverticulitis with large outpouching near the sigmoid colon measuring up to 4.9 cm adjacent to the urinary bladder. Overall findings suggest large colonic diverticula with diverticulitis alternatively representing contained perforation with feces or underlying fistula. U/S interpreted by me (1pt. min.). @ -None done What testing was considered but not performed or refused? (CT, X-rays, U/S, labs)? Why? @ -None What meds were considered but not given or refused? Why? @ -None Did you discuss the management of the patient with other professionals (professionals i.e. EMORY Gardner, LAUNDRY CLERK, lab, RT, psych nurse, health social work professor, geospatial image analyst, teacher, building drafting officer, leather case finisher)? Give summary @ -Case discussed with Dr. Pedraza of general surgery. Advises transfer for interventional radiology intervention secondary to possible abscess formation. However reports if the patient would not like to be transferred will see the patient here. Case discussed with Dr. Caban of urology who also advises transfer for interventional radiology intervention. Case discussed with Dr. Gomez of interventional radiology at [facility], who advises no IR intervention at this time. Case discussed with Dr. Mathias of colorectal surgery, who will see the patient. Case discussed with Dr. Hollis at [facility], who accepts transfer patient. Was smoking cessation discussed for >3mins.? @ -No Was critical care preformed (if so, how long)? @ -No Were there social determinants of health that impacted care today? How? (Homelessness, low income, unemployed, alcoholism, drug addiction, transportation, low edu. Level, literacy, decrease access to med. care, longterm, rehab)? @ -No Was there de-escalation of care discussed even if they declined (Discuss DNR or withdrawal of care, Hospice)? DNR status @ -No What co-morbidities impacted this encounter? (DM, HTN, Smoking, COPD, CAD, Cancer, CVA, ARF, Chemo, Hep., AIDS, mental health diagnosis, sleep apnea, morbid obesity)? @ -None Was patient admitted / discharged? Hospital course, mention meds given and route, prescriptions, significant lab abnormalities, going to OR and other pertinent info. @ -Transfer Patient initially seen by myself as a quick note and triage 68-year-old male presenting to the ED with complaints of dysuria for the past 3 to 4 days, urinary frequency, and onset of right flank pain today. Also did note subjective fever today. Laboratory studies reviewed. CBC largely unremar kable with no elevation white blood cell count. Chemistry panel unremarkable. Lactic acid 1.7. UA does appear consistent infection showing moderate blood, positive nitrites, large leukocyte Estrace, 129 red blood cells, 135 white blood cells, occasional clumps occasional bacteria. At this time vital signs are stable, afebrile. Urine culture and blood cultures were obtained. CT of the abdomen pelvis concerning for fistula formation between the sigmoid colon and urinary bladder. No evidence of obstructive uropathy or renal calculus. After discussion with both general surgery and urology, who advised transfer for IR intervention. Patient given a dose of 2 g ceftriaxone here and 500 mg of Flagyl. Undiagnosed new problem with uncertain prognosis? @ -No Drug Therapy requiring intensive monitoring for toxicity (Heparin, Nitro, Insulin, Cardizem)? @ -No Were any procedures done? @ -No Diagnosis/symptom? @ -Pyelonephritis, fistula formation Acute, or Chronic, or Acute on Chronic? @ -Acute Uncomplicated (without systemic symptoms) or Complicated (systemic symptoms)? @ -Complicated Side effects of treatment? @ -No Exacerbation, Progression, or Severe Exacerbation? @ -No Poses a threat to life or bodily function? How? (Chest pain, [place], [place], pneumonia, PE, COPD, DKA, ARF, appy, cholecystitis, CVA, Diverticulitis, Homicidal, Suicidal, threat to staff... and all critical care pts) @ -Possibly - Lab Data Result diagrams: 11/20/23 18:55 11/20/23 18:55 Lab Results 11/20/23 11/20/23 11/20/23 Range/Units 18:55 18:55 18:55 WBC 8.4 (3.8-10.6) k/uL RBC 5.00 (4.30-5.90) m/uL Hgb 14.5 (13.0-17.5) gm/dL Hct 43.8 (39.0-53.0) % MCV 87.6 (80.0-100.0) fL MCH 29.0 (25.0-35.0) pg MCHC 33.1 (31.0-37.0) g/dL RDW 13.3 (11.5-15.5) % Plt Count 244 (150-450) k/uL MPV 7.3 Neutrophils % 69 % Lymphocytes % 19 % Monocytes % 7 % Eosinophils % 2 % Basophils % 1 % Neutrophils # 5.8 (1.3-7.7) k/uL Lymphocytes # 1.6 (1.0-4.8) k/uL Monocytes # 0.6 (0-1.0) k/uL Eosinophils # 0.2 (0-0.7) k/uL Basophils # 0.1 (0-0.2) k/uL Sodium 139 (137-145) mmol/L Potassium 4.6 (3.5-5.1) mmol/L Chloride 105 (98-107) mmol/L Carbon Dioxide 27 (22-30) mmol/L Anion Gap 7 mmol/L BUN 18 (9-20) mg/dL Creatinine 1.11 (0.66-1.25) mg/dL Est GFR (CKD-EPI)AfAm 80 (>60 ml/min/1.73 sqM) Est GFR (CKD-EPI)NonAf 69 (>60 ml/min/1.73 sqM) Glucose 146 H (74-99) mg/dL Plasma Lactic Acid Brendan 1.7 (0.7-2.0) mmol/L Calcium 9.7 (8.4-10.2) mg/dL Total Bilirubin 0.6 (0.2-1.3) mg/dL AST 25 (17-59) U/L ALT 20 (4-49) U/L Alkaline Phosphatase 86 (38-126) U/L Total Protein 7.2 (6.3-8.2) g/dL Albumin 4.0 (3.5-5.0) g/dL Urine Color Urine Appearance (Clear) Urine pH (5.0-8.0) Ur Specific Hayes (1.001-1.035) Urine Protein (Negative) Urine Glucose (UA) (Negative) Urine Ketones (Negative) Urine Blood (Negative) Urine Nitrite (Negative) Urine Bilirubin (Negative) Urine Urobilinogen (<2.0) mg/dL Ur Leukocyte Esterase (Negative) Urine RBC (0-5) /hpf Urine WBC (0-5) /hpf Urine WBC Clumps (None) /hpf Ur Squamous Epith Cells (0-4) /hpf Urine Bacteria (None) /hpf Hyaline Casts (0-2) /lpf Urine Mucus (None) /hpf 11/20/23 Range/Units 19:01 WBC (3.8-10.6) k/uL RBC (4.30-5.90) m/uL Hgb (13.0-17.5) gm/dL Hct (39.0-53.0) % MCV (80.0-100.0) fL MCH (25.0-35.0) pg MCHC (31.0-37.0) g/dL RDW (11.5-15.5) % Plt Count (150-450) k/uL MPV Neutrophils % % Lymphocytes % % Monocytes % % Eosinophils % % Basophils % % Neutrophils # (1.3-7.7) k/uL Lymphocytes # (1.0-4.8) k/uL Monocytes # (0-1.0) k/uL Eosinophils # (0-0.7) k/uL Basophils # (0-0.2) k/uL Sodium (137-145) mmol/L Potassium (3.5-5.1) mmol/L Chloride (98-107) mmol/L Carbon Dioxide (22-30) mmol/L Anion Gap mmol/L BUN (9-20) mg/dL Creatinine (0.66-1.25) mg/dL Est GFR (CKD-EPI)AfAm (>60 ml/min/1.73 sqM) Est GFR (CKD-EPI)NonAf (>60 ml/min/1.73 sqM) Glucose (74-99) mg/dL Plasma Lactic Acid Brendan (0.7-2.0) mmol/L Calcium (8.4-10.2) mg/dL Total Bilirubin (0.2-1.3) mg/dL AST (17-59) U/L ALT (4-49) U/L Alkaline Phosphatase (38-126) U/L Total Protein (6.3-8.2) g/dL Albumin (3.5-5.0) g/dL Urine Color Yellow Urine Appearance Cloudy (Clear) Urine pH 5.5 (5.0-8.0) Ur Specific [place] 1.018 (1.001-1.035) Urine Protein 1+ H (Negative) Urine Glucose (UA) Negative (Negative) Urine Ketones Negative (Negative) Urine Blood Moderate H (Negative) Urine Nitrite Positive (Negative) Urine Bilirubin Negative (Negative) Urine Urobilinogen <2.0 (<2.0) mg/dL Ur Leukocyte Esterase Large H (Negative) Urine RBC 129 H (0-5) /hpf Urine WBC 135 H (0-5) /hpf Urine WBC Clumps Occasional H (None) /hpf Ur Squamous Epith Cells <1 (0-4) /hpf Urine Bacteria Occasional H (None) /hpf Hyaline Casts 1 (0-2) /lpf Urine Mucus Rare H (None) /hpf Disposition Clinical Impression: Pyelonephritis Disposition: OTHER INSTITUTION NOT DEFINED Condition: Good Referrals: [facility],Clinic [Primary Care Provider] - 1-2 days Time of Disposition: 22:15 - Out of Hospital Transfer - Req. Specs Out of Hospital Transfer - Requested Specifics: Other Emergency Center ([facility])
[2023-11-20 19:13] LABS: Basophils # (A) 0.1 k/uL (0-0.2); Basophils % (A) 1 %; Eosinophils # (A) 0.2 k/uL (0-0.7); Eosinophils % (A) 2 %; HCT 43.8 % (39.0-53.0); HGB 14.5 gm/dL (13.0-17.5); Lymphocytes # (A) 1.6 k/uL (1.0-4.8); Lymphocytes % (A) 19 %; MCHC 33.1 g/dL (31.0-37.0); MCV 87.6 fL (80.0-100.0); Mean Platelet Volume 7.3; Monocytes # (A) 0.6 k/uL (0-1.0); Monocytes % (A) 7 %; Neutrophils # (A) 5.8 k/uL (1.3-7.7); Neutrophils % (A) 69 %; Platelet Count 244 k/uL (150-450); RDW 13.3 % (11.5-15.5); WBC 8.4 k/uL (3.8-10.6)
[2023-11-20 19:19] LABS: Appearance,Urine Cloudy (Clear); Bacteria,Urine Occasional /hpf; Bilirubin,Urine Negative (Negative); Blood,Urine Moderate (Negative); Color,Urine Yellow; Glucose,Urine (UA) Negative (Negative); Hyaline Casts,Urine 1 /lpf (0-2); Ketones,Urine Negative (Negative); Leukocyte Esterase,Urine Large (Negative); Mucus,Urine Rare /hpf; Nitrite,Urine Positive (Negative); PH, Urine 5.5 (5.0-8.0); Protein,Urine 1+ (Negative); RBC,Urine 129 /hpf (0-5); Specific Gravity,Urine 1.018 (1.001-1.035); Squamous Epithelial Cell,Urine <1 /hpf (0-4); Urobilinogen,Urine <2.0 mg/dL (<2.0); WBC,Urine 135 /hpf (0-5)
--- NOTE | 2023-11-20 19:20 | CT ---
EXAMINATION TYPE: CT abdomen pelvis wo con CT DLP: 2465 mGycm, Automated exposure control for dose reduction was used. DATE OF EXAM: 11/20/2023 6:51 PM COMPARISON: CT abdomen pelvis most recent from 04/10/2023. CLINICAL INDICATION:Male, 68 years old with history of r flank pain; right flank pain TECHNIQUE: Axial CT abdomen pelvis wo con;Sagittal and coronal reformats were created on a separate workstation. Contrast used: mL of , (none if empty) Oral contrast used: without Oral Contrast (none if empty) FINDINGS: LOWER CHEST: Unremarkable ABDOMEN LIVER: Probable right hepatic lobe cyst. GALLBLADDER AND BILE DUCTS: Unremarkable. PANCREAS: Unremarkable. SPLEEN: Unremarkable. ADRENAL GLANDS: Unremarkable. KIDNEYS AND URETERS: No evidence of hydronephrosis or renal calculus. The ureters are unremarkable. Left renal cysts. PELVIS BLADDER: Decompressed with facet joint changes as described below. REPRODUCTIVE: Unremarkable. ABDOMEN & PELVIS STOMACH AND BOWEL: No evidence of bowel obstruction. Post surgical changes to the gastric lumen. Ther e is multiple colonic diverticula some of which have inflammation changes around them particularly so me close to the urinary bladder wall series 202 image 62. There is outpouching which may be containin g feces measuring 3.9 x 4.9 cm.. Small tract extends to the bladder wall. PERITONEUM/RETROPERITONEUM: No evidence of pneumoperitoneum or free fluid. VASCULATURE: No evidence of aortic aneurysm. MUSCULOSKELETAL: No acute osseous abnormalities, postsurgical changes to the lumbar spine. Hardware a ppears intact. Superior pedicle screw enters the L2-L3 disc space. LYMPH NODES: No gross evidence for lymphadenopathy. SOFT TISSUE/ABDOMINAL WALL: Unremarkable IMPRESSION: 1. Redemonstration of suspected large bowel diverticulitis with large outpouching near the sigmoid c olon measuring up to 4.9 cm similar to prior. This remains adjacent to the urinary bladder . There re desire extensive fat stranding changes in this region extending to the urinary bladder. Overall findin gs suggest large colonic diverticula with diverticulitis alternatively this could represent contained perforation with feces. 2. No evidence for obstructive uropathy or renal calculus. 3. Cholelithiasis with gallstones in the gallbladder neck. 4. Urinary bladder dome from large outpouching mentioned above correlate with urinalysis to exclude underlying fistula. 5. Postsurgical changes to the lumbar spine. Hardware appears intact. Superior pedicle screw enters the L2-L3 disc space.
[2023-11-20 19:32] LABS: ALT 20 U/L (4-49); AST 25 U/L (17-59); African American GFR (CKD) 80 (>60 ml/min/1.73 sqM); Alkaline Phosphatase 86 U/L (38-126); Anion Gap 7 mmol/L; Blood Urea Nitrogen 18 mg/dL (9-20); Calcium 9.7 mg/dL (8.4-10.2); Carbon Dioxide 27 mmol/L (22-30); Chloride 105 mmol/L (98-107); Glucose 146 mg/dL (74-99); Non-African American GFR(CKD) 69 (>60 ml/min/1.73 sqM); Potassium 4.6 mmol/L (3.5-5.1); Sodium 139 mmol/L (137-145); Total Bilirubin 0.6 mg/dL (0.2-1.3); Total Protein 7.2 g/dL (6.3-8.2)
[2023-11-20] MEDS: cefTRIAXone IN SWFI 1,000 MG/10 ML SYRINGE IVP STA (21:19)
[2023-11-20] MEDS: SODIUM CHLORIDE 0.9% 1,000 ML IV STA (21:20)
[2023-11-20] MEDS: metroNIDAZOLE-NS PMX 500 MG in SALINE 1 100ML.BAG IVPB STA (21:33)
[2023-11-21 01:16] VITALS: BP 119/82; PULSE 83; RESP 18; TEMP 98.4
== END 2023-11-21 01:02 | disposition other institution (70) ==
LOC: EC 17:51
DX: N12 Tubulo-interstitial nephritis, not specified as acute or chronic (principal); K80.20 Calculus of gallbladder without cholecystitis without obstruction; Z87.891 Personal history of nicotine dependence
CPT/HCPCS: 36415; 80053; 83605; 85025; 81001; 87040; 87086; 74176; 99284; 96365; 96366 ×2; 96375; J0696; J1836; 87077; 87186

== ENCOUNTER 2024-02-04 15:04 | Emergency (ER) | payer OTHER ==
--- NOTE | 2024-02-04 15:25 | ED ---
Male Urogenital HPI - General Source: patient, RN notes reviewed <Noa Roberts - Last Filed: 02/04/24 15:22> <Lorri Hendrix - Last Filed: 02/05/24 00:18> - General Stated complaint: urogenital Time Seen by Provider: 02/04/24 15:20 - History of Present Illness Initial comments: [id number]old male with a history of diverticulitis presents emergency department with left lower quadrant abdominal pain that started this afternoon. He denies nausea, vomiting, fevers, chills. Denies dysuria, hematuria, increased urinary frequency or urgency. Patient states that he has been having pain of his left testicle yesterday and left groin pain however this pain has resolved. (Noa Roberts) He is a pleasant 68-year-old male with a history of recurrent diverticulitis who presents ER today for evaluation of burning lower quadrant abdominal pain radiating to his testicles. Patient has had diverticulitis multiple times he says this pain is similar but he is never had it radiate to his testicles. Patient does report that during previous episode of diverticulitis there was concern for possible bladder involvement he did have a MRI fistulogram performed at the [facility] and was advised there is currently no fistula. Patient states that prior to 2 years ago he only got diverticulitis about once a year and he had for a number of years but in the past 2 years he has been getting it 3-4 times a year. Patient states the pain is tolerable he just thought he should come in to be evaluated may be at some antibiotics and he was concerned about the radiation into his testicles. (Lorri Hendrix) - Related Data Home Medications Medication Instructions Recorded Confirmed Levothyroxine Sodium [Synthroid] 100 mcg PO DAILY 08/24/19 07/28/21 Loratadine 10 mg PO DAILY 08/24/19 07/28/21 DULoxetine HCL [Cymbalta] 20 mg PO HS 07/10/21 07/28/21 Fluticasone Nasal [place] [Flonase 1 spr EA NOSTRIL DAILY 07/10/21 07/28/21 Nasal [place]] Gabapentin 800 mg PO TID 07/10/21 07/28/21 buPROPion [Wellbutrin] 150 mg PO DAILY 07/10/21 07/28/21 guaiFENesin [Mucinex] 600 mg PO BID PRN 07/10/21 07/28/21 Meclizine [Antivert] 25 mg PO TID PRN 07/22/21 07/28/21 Apixaban [Eliquis Starter Pack See Taper PO DIRECTED 07/28/21 07/28/21 (for VTE)] Previous Rx's Medication Instructions Recorded Ascorbic Acid [Vitamin C] 1,000 mg PO DAILY #60 tab 07/19/21 Cholecalciferol [Vitamin D3 (25 100 mcg PO DAILY #120 tablet 07/19/21 Mcg = 1000 Iu)] Omeprazole 20 mg PO DAILY #30 cap 07/19/21 Zinc Sulfate [Orazinc] 220 mg PO DAILY #30 cap 07/19/21 metFORMIN HCL [Glucophage] 500 mg PO BID 15 Days #30 tab 07/19/21 Melatonin 5 mg PO HS PRN tablet 07/25/21 Amoxic-Pot Clav 875-125Mg 1 tab PO Q12HR 10 Days #20 tab 04/10/23 [Augmentin 875-125] Cyclobenzaprine [Flexeril] 10 mg PO TID PRN #15 tab 10/01/23 Lidocaine 4% Patch 1 patch TOPICAL DAILY PRN #5 patch 10/01/23 Allergies Allergy/AdvReac Type Severity Reaction Status Date / Time No Known Allergies Allergy Verified 11/20/23 18:51 Review of Systems ROS Other: All systems not noted in ROS Statement are negative. <Noa Roberts - Last Filed: 02/04/24 15:22> ROS Other: All systems not noted in ROS Statement are negative. <Lorri Hendrix - Last Filed: 02/05/24 00:18> ROS Statement: Those systems with pertinent positive or pertinent negative responses have been documented in the HPI. Past Medical History Past Medical History: Diabetes Mellitus, GERD/Reflux, Hypertension, Thyroid Disorder Additional Past Medical History / Comment(s): DIVERTICULOSIS History of Any Multi-Drug Resistant Organisms: None Reported Past Surgical History: Appendectomy, Bariatric Surgery, Joint Replacement, Orthopedic Surgery Additional Past Surgical History / Comment(s): GATRIC SLEEVE. BILAT TKA. COLONOSCOPY. EYELID SX. RHINOPLASTY. Back Surgery 09/03/20 Past Anesthesia/Blood Transfusion Reactions: Motion Sickness Past Psychological History: No Psychological Hx Reported Smoking Status: Former smoker Past Alcohol Use History: None Reported Past Drug Use History: None Reported - Past Family History Mother Family Medical History: No Reported History Sister(s) Family Medical History: Cancer Father Family Medical History: Cancer <Noa Roberts - Last Filed: 02/04/24 15:22> General Exam <Noa Roberts - Last Filed: 02/04/24 15:22> <Lorri Hendrix - Last Filed: 02/05/24 00:18> - General Exam Comments Initial Comments: Visual Physical Exam Vital signs reviewed General: Well-appearing, nontoxic, no acute distress. Head: Normocephalic, atraumatic Eyes: PERRLA, EOMI ENT: Airway patent Chest: Nonlabored breathing Skin: No visual rash, normal skin tone Neuro: Alert and oriented 3 Musculoskeletal: No gross abnormalities (oNa Roberts) Physical Exam GENERAL: Patient is well-developed and well-nourished. Patient is nontoxic and well-hydrated and is in no distress. HENT: Normocephalic, Atraumatic. EYES: PERRL, EOMI PULMONARY: Unlabored respirations. CARDIOVASCULAR: RRR Warm and well perfused extremities ABDOMEN: Obese mild tenderness to deep palpation of the left lower quadrant SKIN: No rashes or bruising : Deferred NEUROLOGIC: Alert and oriented Normal speech Normal gait MUSCULOSKELETAL: Moving all extremities with no apparent injury PSYCHIATRIC: No SI/HI (Lorri Hendrix) Course Vital Signs 02/04/24 02/04/24 15:40 22:28 Temperature 98.2 F Pulse Rate 83 60 Respiratory 18 16 Rate Blood Pressure 120/83 131/71 O2 Sat by Pulse 95 96 Oximetry Medical Decision Making <Noa Roberts - Last Filed: 02/04/24 15:22> - Lab Data Result diagrams: 02/04/24 15:39 02/04/24 15:39 <Lorri Hendrix - Last Filed: 02/05/24 00:18> - Medical Decision Making I completed the quick note portion of this chart signed Noa Roberts PA-C (Noa Roberts) Was pt. sent in by a medical professional or institution ([facility], [facility], urgent care, hospital, or prison...) When possible be specific @ -No Did you speak to anyone other than the patient for history (EMS, parent, family, police, friend...)? What history was obtained from this source @ -No Did you review nursing and triage notes (agree or disagree)? Why? @ -I reviewed and agree with nursing and triage notes Were old charts reviewed (outside hosp., previous admission, EMS record, old EKG, old radiological studies, urgent care reports/EKG's, prison records)? Report findings @ -No old charts were reviewed Differential Diagnosis (chest pain, altered mental status, abdominal pain women, abdominal pain men, vaginal bleeding, weakness, fever, dyspnea, syncope, headache, dizziness, GI bleed, back pain, seizure, CVA, palpatations, mental health)? @ -Differential Abdominal Pain Men: Appendicitis, cholecystitis, diverticulosis, ischemic bowel, pancreatitis, h epatitis, UTI, gastroenteritis, AAA, incarcerated hernia, bowel obstruction, constipation, inflammatory bowel, hepatitis, peptic ulcer disease, splenic infarction, perforated viscus, testicular torsion, this is not meant to be an all-inclusive list EKG interpreted by me (3pts min.). @ -As above X-rays interpreted by me (1pt min.). @ -None done CT interpreted by me (1pt min.). @ -Diverticulitis U/S interpreted by me (1pt. min.). @ -None done What testing was considered but not performed or refused? (CT, X-rays, U/S, labs)? Why? @ -None What meds were considered but not given or refused? Why? @ -None Did you discuss the management of the patient with other professionals (professionals i.e. , PA, SNUFF BLENDER, lab, RT, psych nurse, social service worker, associate account director, teacher, financial compliance officer, case advocate)? Give summary @ -No Was smoking cessation discussed for >3mins.? @ -No Was critical care preformed (if so, how long)? @ -No Were there social determinants of health that impacted care today? How? (Homelessness, low income, unemployed, alcoholism, drug addiction, transportation, low edu. Level, literacy, decrease access to med. care, custodial, rehab)? @ -No Was there de-escalation of care discussed even if they declined (Discuss DNR or withdrawal of care, Hospice)? DNR status @ -No What co-morbidities impacted this encounter? (DM, HTN, Smoking, COPD, CAD, Cancer, CVA, ARF, Chemo, Hep., AIDS, mental health diagnosis, sleep apnea, morbid obesity)? @ -None Was patient admitted / discharged? Hospital course, mention meds given and route, prescriptions, significant lab abnormalities, going to OR and other pertinent info. @ -Discharged Patient was seen and evaluated, history is obtained from patient labs and CT were ordered. CT with multiple abnormalities consistent with diverticulitis large diverticula noted. Patient pain-free while in the ER and comfortable with plan for discharge home with oral antibiotics. Patient will continue to follow with surgeon at the [facility]. Patient is scheduled for colonoscopy at the [facility] in March. Undiagnosed new problem with uncertain prognosis? @ -No Drug Therapy requiring intensive monitoring for toxicity (Heparin, Nitro, Insulin, Cardizem)? @ -No Were any procedures done? @ -No Diagnosis/symptom? @ -Diverticulitis Acute, or Chronic, or Acute on Chronic? @ -Default Uncomplicated (without systemic symptoms) or Complicated (systemic symptoms)? @ -Default Side effects of treatment? @ -No Exacerbation, Progression, or Severe Exacerbation? @ -No Poses a threat to life or bodily function? How? (Chest pain, USA, MD, pneumonia, PE, COPD, DKA, ARF, appy, cholecystitis, CVA, Diverticulitis, Homicidal, Suicidal, threat to staff... and all critical care pts) @ -No (Lorri Hendrix) - Lab Data Lab Results 02/04/24 02/04/24 02/04/24 Range/Units 15:39 15:39 15:39 WBC 7.8 (3.8-10.6) k/uL RBC 4.89 (4.30-5.90) m/uL Hgb 14.5 (13.0-17.5) gm/dL Hct 43.0 (39.0-53.0) % MCV 87.9 (80.0-100.0) fL MCH 29.7 (25.0-35.0) pg MCHC 33.7 (31.0-37.0) g/dL RDW 13.7 (11.5-15.5) % Plt Count 206 (150-450) k/uL MPV 6.9 Neutrophils % 51 % Lymphocytes % 37 % Monocytes % 6 % Eosinophils % 5 % Basophils % 1 % Neutrophils # 3.9 (1.3-7.7) k/uL Lymphocytes # 2.8 (1.0-4.8) k/uL Monocytes # 0.5 (0-1.0) k/uL Eosinophils # 0.4 (0-0.7) k/uL Basophils # 0.1 (0-0.2) k/uL Sodium 138 (137-145) mmol/L Potassium 4.6 (3.5-5.1) mmol/L Chloride 109 H (98-107) mmol/L Carbon Dioxide 24 (22-30) mmol/L Anion Gap 5 mmol/L BUN 18 (9-20) mg/dL Creatinine 0.96 (0.66-1.25) mg/dL Est GFR (CKD-EPI)AfAm >90 (>60 ml/min/1.73 sqM) Est GFR (CKD-EPI)NonAf 83 (>60 ml/min/1.73 sqM) Glucose 115 H (74-99) mg/dL Plasma Lactic Acid Brendan 1.0 (0.7-2.0) mmol/L Calcium 9.7 (8.4-10.2) mg/dL Total Bilirubin 0.5 (0.2-1.3) mg/dL AST 28 (17-59) U/L ALT 22 (4-49) U/L Alkaline Phosphatase 82 (38-126) U/L Total Protein 7.3 (6.3-8.2) g/dL Albumin 4.2 (3.5-5.0) g/dL Amylase 50 (30-110) U/L Lipase 176 (23-300) U/L Disposition <Noa Roberts - Last Filed: 02/04/24 15:22> Is patient prescribed a controlled substance at d/c from ED?: No <Lorri Hendrix - Last Filed: 02/05/24 00:18> Clinical Impression: Diverticulitis Disposition: HOME SELF-CARE Condition: Stable Instructions (If sedation given, give patient instructions): Diverticulitis (DC) Referrals: [facility],Clinic [Primary Care Provider] - 1-2 days
[2024-02-04 15:42] VITALS: TEMP 98.2
--- NOTE | 2024-02-04 16:43 | US ---
EXAMINATION TYPE: US scrotum with doppler. Grayscale and color Doppler Duplex imaging performed of julieta gonzales scrotum. DATE OF EXAM: 02/04/2024 COMPARISON: NONE CLINICAL INDICATION: Male, 68 years old with history of left testicular pain, groin pain; EXAM MEASUREMENTS: TESTICLES: Right Testicle: 3.2 x 1.7 x 2.6 cm Left Testicle: 3.6 x 2.0 x 2.4 cm EPIDIDYMIS HEAD: Right Epididymis: 1.3 cm Left Epididymis: 1.4 cm Doppler performed to assess for testicular vascularity; good bilateral color flow and waveforms are s een. There is no evidence of testicular torsion. Presence of hydroceles: right - 3.2cm Presence of varicoceles: no IMPRESSION: Small right hydrocele. No evidence of torsion or other acute process.
[2024-02-04 18:11] LABS: Basophils # (A) 0.1 k/uL (0-0.2); Basophils % (A) 1 %; Eosinophils # (A) 0.4 k/uL (0-0.7); Eosinophils % (A) 5 %; HGB 14.5 gm/dL (13.0-17.5); Lymphocytes # (A) 2.8 k/uL (1.0-4.8); Lymphocytes % (A) 37 %; MCH 29.7 pg (25.0-35.0); MCHC 33.7 g/dL (31.0-37.0); MCV 87.9 fL (80.0-100.0); Mean Platelet Volume 6.9; Monocytes # (A) 0.5 k/uL (0-1.0); Monocytes % (A) 6 %; Neutrophils # (A) 3.9 k/uL (1.3-7.7); Neutrophils % (A) 51 %; Platelet Count 206 k/uL (150-450); RBC 4.89 m/uL (4.30-5.90); RDW 13.7 % (11.5-15.5); WBC 7.8 k/uL (3.8-10.6)
[2024-02-04 18:23] LABS: ALT 22 U/L (4-49); AST 28 U/L (17-59); African American GFR (CKD) >90 (>60 ml/min/1.73 sqM); Albumin 4.2 g/dL (3.5-5.0); Alkaline Phosphatase 82 U/L (38-126); Amylase 50 U/L (30-110); Anion Gap 5 mmol/L; Blood Urea Nitrogen 18 mg/dL (9-20); Calcium 9.7 mg/dL (8.4-10.2); Carbon Dioxide 24 mmol/L (22-30); Chloride 109 mmol/L (98-107); Glucose 115 mg/dL (74-99); Lipase 176 U/L (23-300); Non-African American GFR(CKD) 83 (>60 ml/min/1.73 sqM); Potassium 4.6 mmol/L (3.5-5.1); Sodium 138 mmol/L (137-145); Total Bilirubin 0.5 mg/dL (0.2-1.3); Total Protein 7.3 g/dL (6.3-8.2)
--- NOTE | 2024-02-04 20:24 | CT ---
EXAMINATION TYPE: CT abdomen pelvis w con CT DLP: 3048.4 mGycm, Automated exposure control for dose reduction was used. DATE OF EXAM: 02/04/2024 7:50 PM COMPARISON: CT abdomen pelvis most recent from CLINICAL INDICATION:Male, 68 years old with history of LLQ ab. pain, hx of diverticulitis; LLQ pain. Hx diverticulitis. TECHNIQUE: Axial CT abdomen pelvis w con;Sagittal and coronal reformats were created on a separate w orkstation. Contrast used:100ml mL of Isovue 300 with IV Contrast, (none if empty) Oral contrast used: without Oral Contrast (none if empty) FINDINGS: LOWER CHEST: Posterior dependent subsegmental atelectasis is noted. ABDOMEN LIVER: Small subcentimeter hypoattenuated focus too small to characterize. The liver parenchyma other donnelly has unremarkable attenuation and morphology. GALLBLADDER AND BILE DUCTS: Gallstone noted in a nondistended gallbladder. PANCREAS: Unremarkable. SPLEEN: Unremarkable. ADRENAL GLANDS: Unremarkable. KIDNEYS AND URETERS: No evidence of hydronephrosis or renal calculus. Left renal cyst seen measuring 8.5 cm. Subcentimeter hypoattenuated foci are seen in the right kidney too small to characterize. The ureters are unremarkable. PELVIS BLADDER: Decompressed with surrounding fat stranding. REPRODUCTIVE: Penile prosthesis reservoir is seen in the left hemipelvis appears similar. ABDOMEN & PELVIS STOMACH AND BOWEL: Postsurgical changes of the stomach. Small bowel is of normal caliber. Scattered c olonic diverticula are seen with subtle fat stranding surrounding some of the diverticula most notabl y adjacent to the urinary bladder. There is a similar appearance outpouching containing fecal materia l from the sigmoid colon which extends to the urinary bladder. There is surrounding fat stranding. No evidence of bowel obstruction. PERITONEUM/RETROPERITONEUM: No evidence of pneumoperitoneum or free fluid. VASCULATURE: No evidence of aortic aneurysm. MUSCULOSKELETAL: Postsurgical hardware and changes are again seen involving L3-S1. No acute osseous a bnormalities LYMPH NODES: Few scattered nonenlarged lymph nodes in the bilateral iliac chain and bilateral inguina l region with no gross evidence for lymphadenopathy. SOFT TISSUE/ABDOMINAL WALL: Unremarkable IMPRESSION: 1. There is similar distal large bowel diverticulitis with redemonstrated outpouching adjacent to th e sigmoid colon seen extending to the urinary bladder. These findings could represent a large colonic diverticula versus a contained perforation containing feces. 2. Findings concerning for cystitis and possible fistulous tract formation communicating with adjacen t large bowel. Correlate with urinalysis. Nonemergent outpatient MRI pelvis fistula protocol with con trast could provide more comprehensive evaluation. 3. Postsurgical changes.
[2024-02-04] MEDS: AMOXIC-POT CLAV 875MG STARTER PACK 2 TAB BTL PO STA (22:25)
[2024-02-04 22:31] VITALS: BP 131/71; PULSE 60; RESP 16
== END 2024-02-04 22:28 | disposition home or self-care (01) ==
LOC: EC 15:04
DX: K57.32 Diverticulitis of large intestine without perforation or abscess without bleeding (principal); N43.3 Hydrocele, unspecified; Z87.891 Personal history of nicotine dependence; Z90.49 Acquired absence of other specified parts of digestive tract
CPT/HCPCS: 80053; 82150; 83605; 83690; 85025; 93975; 76870; 74177; 99284; Q9967; 36415